=== PATIENT | female | born 1950 | race Caucasian/White ===

== ENCOUNTER 2018-10-19 21:05 | Outpatient (REF) | payer MEDICARE, SELFPAY ==
[2018-10-19 22:38] LABS: Anion Gap 11.9 mmol/L (3-11); BUN 18 mg/dL (7-18); CO2 26.1 mmol/L (21.0-32.0); CREATININE 0.94 mg/dL (0.55-1.02); Calcium 8.8 mg/dL (8.5-10.1); Chloride 105 mmol/L (98-107); Estimated GFR 59.04 (mL/min/1.73m2); Glucose 106 mg/dL (70-100); Potassium 3.4 mmol/L (3.5-5.1); Sodium 143 mmol/L (136-145)
== END 2018-10-19 21:25 ==
LOC: NCHCN 21:05
PROVIDERS: PCP Physician Assistant Medical; Visit Provider Physician Assistant Medical
DX: R06.00 Dyspnea, unspecified (principal); E07.9 Disorder of thyroid, unspecified
CPT/HCPCS: 80048

== ENCOUNTER 2019-01-17 14:34 | Outpatient (REF) | payer MEDICARE, SELFPAY ==
[2019-01-17 21:22] LABS: ALT 21 U/L (12-78); AST 13 U/L (15-37); Albumin 3.6 g/dL (3.4-5.0); Alkaline Phosphatase 87 U/L (46-116); Anion Gap 12.7 mmol/L (3-11); BUN 13 mg/dL (7-18); Bilirubin, Total 1.1 mg/dL (0.2-1.0); CO2 20.3 mmol/L (21.0-32.0); CREATININE 0.87 mg/dL (0.55-1.02); Chloride 108 mmol/L (98-107); Glucose 166 mg/dL (70-100); Lipase 106 U/L (73-393); Potassium 3.3 mmol/L (3.5-5.1); Sodium 141 mmol/L (136-145); Total Protein 6.5 g/dL (6.4-8.2)
[2019-01-17 21:28] LABS: Abs Immature Grans 0.03 k/cumm (0.0-0.09); Absolute Basophil Count 0.02 k/cumm (0.0-0.2); Absolute Eosinophil Count 0.18 k/cumm (0.0-0.7); Absolute Lymphocyte Count 1.81 k/cumm (1.2-3.4); Absolute Monocyte Count 0.56 k/cumm (0.11-0.7); Absolute Neutrophil Count 5.33 k/cumm (1.2-6.7); Basophils % 0.3; Eosinophils % 2.3; HCT 40.8 % (36.0-46.0); Immature Grans % 0.4; Lymphocytes % 22.8; Mean Corp. HGB Concentration 34.3 g/dL (32.0-36.0); Mean Corpuscular Hemoglobin 31.3 pg (27.0-33.0); Mean Corpuscular Volume 91.1 fL (80-95); Mean Platelet Volume 13.3 fL (8.0-11.0); Monocytes % 7.1; Neutrophils % 67.1; Platelet Count 162 x1000/uL (130-400); RBC 4.48 m/cumm (4.00-5.20); RBC Distribution Width 13.9 % (11.7-14.6); White Blood Cell Count 7.93 k/cumm (4.4-10.8)
[2019-01-17 21:35] LABS: Calcium 8.5 mg/dL (8.5-10.1)
== END 2019-01-17 14:54 ==
LOC: NCHCN 14:34
PROVIDERS: PCP Physician Assistant Medical; Visit Provider Nurse Practitioner Family
DX: R10.11 Right upper quadrant pain (principal)
CPT/HCPCS: 80053; 83690; 85025; 87086

== ENCOUNTER 2019-01-26 00:15 | Outpatient (CLI) | payer MEDICARE, SELFPAY ==
--- NOTE | 2019-01-26 08:56 | DI.US_ITS ---
SYMPTOMS/DIAGNOSIS: RT UPPER QUAD PAIN R10.11, ? CHOLELITHIASIS/CHOLECYSTITIS ABDOMINAL ULTRASOUND: The liver may be mildly echogenic raising the possibility of hepatic steatosis. There is cholelithiasis with multiple small gallstones noted. No pericholecystic fluid collection or gallbladder wall thickening seen. No biliary dilatation seen. The kidneys are unremarkable in appearance. The pancreas is not ideally visualized and appears echogenic. The abdominal aorta and IVC are of normal diameter. The spleen appears intact. CONCLUSION: Cholelithiasis, possible hepatic steatosis.
== END 2019-01-26 00:35 ==
PROVIDERS: PCP Physician Assistant Medical; Visit Provider Nurse Practitioner Family
DX: R10.11 Right upper quadrant pain (principal); K80.20 Calculus of gallbladder without cholecystitis without obstruction; K76.0 Fatty (change of) liver, not elsewhere classified
CPT/HCPCS: 76700

== ENCOUNTER → 2019-02-11 09:21 | Outpatient (BNVA) | payer MEDICARE, SELFPAY | PROVIDERS: PCP Physician Assistant Medical; Referring Provider Physician Assistant Medical; Visit Provider Surgery | DX: K80.20 Calculus of gallbladder without cholecystitis without obstruction (principal); I42.1 Obstructive hypertrophic cardiomyopathy | CPT/HCPCS: 99202; 99214 ==

== ENCOUNTER 2019-05-17 11:24 | Outpatient (CLI) | payer MEDICARE, SELFPAY ==
[2019-05-17 12:30] LABS: Abs Immature Grans 0.01 k/cumm (0.0-0.09); Absolute Basophil Count 0.01 k/cumm (0.0-0.2); Absolute Eosinophil Count 0.12 k/cumm (0.0-0.7); Absolute Lymphocyte Count 1.22 k/cumm (1.2-3.4); Absolute Monocyte Count 0.53 k/cumm (0.11-0.7); Absolute Neutrophil Count 4.61 k/cumm (1.2-6.7); Basophils % 0.2; Eosinophils % 1.8; HCT 37.4 % (36.0-46.0); HGB 12.9 g/dL (12.0-15.5); Immature Grans % 0.2; Lymphocytes % 18.8; Mean Corp. HGB Concentration 34.5 g/dL (32.0-36.0); Mean Corpuscular Hemoglobin 32.3 pg (27.0-33.0); Mean Corpuscular Volume 93.5 fL (80-95); Mean Platelet Volume 12.3 fL (8.0-11.0); Monocytes % 8.2; Neutrophils % 70.8; Platelet Count 171 x1000/uL (130-400)
[2019-05-17 12:46] LABS: ALT 20 U/L (14-59); AST 17 U/L (15-37); Albumin 3.5 g/dL (3.4-5.0); Anion Gap 9.9 mmol/L (3-11); BUN 13 mg/dL (7-18); Bilirubin, Total 1.4 mg/dL (0.2-1.0); CO2 24.1 mmol/L (21.0-32.0); CREATININE 0.92 mg/dL (0.55-1.02); Chloride 106 mmol/L (98-107); Glucose 127 mg/dL (70-100); Potassium 3.5 mmol/L (3.5-5.1); Sodium 140 mmol/L (136-145)
[2019-05-17 13:01] LABS: INR 1.1 (0.9-1.1); PTT Activated 31.6 sec (21.0-31.4); Prothrombin Time 11.1 sec (9.3-11.0)
[2019-05-17 14:50] LABS: Amylase 49 U/L (25-115)
== END 2019-05-17 11:44 ==
PROVIDERS: PCP Physician Assistant Medical; Visit Provider Internal Medicine Cardiovascular Disease
DX: I42.2 Other hypertrophic cardiomyopathy (principal); Z01.818 Encounter for other preprocedural examination; R73.09 Other abnormal glucose
CPT/HCPCS: 36415; 80051; 82947; 84520; 82040; 82150; 82247; 82565; 84450; 84460; 85025; 85610; 85730

== ENCOUNTER 2019-08-02 11:51 | Outpatient (REF) | payer MEDICARE, SELFPAY ==
[2019-08-02 20:12] LABS: Abs Immature Grans 0.01 k/cumm (0.0-0.09); Absolute Basophil Count 0.02 k/cumm (0.0-0.2); Absolute Eosinophil Count 0.13 k/cumm (0.0-0.7); Absolute Lymphocyte Count 1.44 k/cumm (1.2-3.4); Absolute Monocyte Count 0.67 k/cumm (0.11-0.7); Absolute Neutrophil Count 4.62 k/cumm (1.2-6.7); Basophils % 0.3; Eosinophils % 1.9; HCT 37.5 % (36.0-46.0); HGB 12.9 g/dL (12.0-15.5); Immature Grans % 0.1; Lymphocytes % 20.9; Mean Corp. HGB Concentration 34.4 g/dL (32.0-36.0); Mean Corpuscular Hemoglobin 30.8 pg (27.0-33.0); Mean Corpuscular Volume 89.5 fL (80-95); Mean Platelet Volume 12.4 fL (8.0-11.0); Monocytes % 9.7; Neutrophils % 67.1; Platelet Count 170 x1000/uL (130-400); RBC 4.19 m/cumm (4.00-5.20); RBC Distribution Width 13.6 % (11.7-14.6); White Blood Cell Count 6.89 k/cumm (4.4-10.8)
[2019-08-02 20:34] LABS: ALT 24 U/L (14-59); AST 19 U/L (15-37); Albumin 3.6 g/dL (3.4-5.0); Alkaline Phosphatase 78 U/L (46-116); Anion Gap 11.4 mmol/L (3-11); BUN 11 mg/dL (7-18); Bilirubin, Total 0.8 mg/dL (0.2-1.0); CO2 23.6 mmol/L (21.0-32.0); CREATININE 0.78 mg/dL (0.55-1.02); Calcium 8.8 mg/dL (8.5-10.1); Chloride 109 mmol/L (98-107); Glucose 92 mg/dL (74-106); Potassium 3.4 mmol/L (3.5-5.1); Sodium 144 mmol/L (136-145); TSH (W/Ref FT4) 2.11 uIU/mL (0.36-3.74); Total Protein 6.3 g/dL (6.4-8.2)
== END 2019-08-02 12:11 ==
LOC: NCHCN 11:51
PROVIDERS: PCP Physician Assistant Medical; Visit Provider Nurse Practitioner Family
DX: R07.9 Chest pain, unspecified (principal); E07.9 Disorder of thyroid, unspecified; I42.1 Obstructive hypertrophic cardiomyopathy
CPT/HCPCS: 80053; 84443; 85025

== ENCOUNTER 2019-10-03 18:04 | Observation (INO) | payer MEDICARE, SELFPAY ==
[2019-10-03] VITALS (98 sets, daily range): BP systolic 91–159; BP diastolic 48–130; PULSE 63–83; RESP 13–34; TEMP 36.8–36.9; O2SAT 94–99
--- NOTE | 2019-10-03 17:58 | ED.GENADUL_ITS ---
Discharge Plan Disposition Patient Disposition: [facility] INPATIENT Condition: Stable Discharge Details Chief Complaint: Chest Pain Clinical Impression: Chest pain, Elevated troponin, S/P coronary artery stent placement, Hypertrophic obstructive cardiomyopathy Admit Date/Time: 10/03/19 23:28 Admit Provider: Arvin Dacosta Attending Provider: Arvin Dacosta Primary Care Provider: Moy Pérez ED Provider: Natividad Arroyo Discharge Data Discharge Date/Time-TO BE ENTERED AT DEPARTURE: 10/04/19 00:45 Medical Decision Making 1800 -- 69-year-old female with a history of hypertrophic obstructive cardiomyopathy, coronary artery disease, CO, 2 cardiac stents, former smoker presents with chest pain at rest today followed by an episode of lightheadedness and diaphoresis upon standing after taking 1 nitro. Patient was admitted to [facility] cardiology last week for chest pain and was diagnosed with NSTEMI and found to have 90% in-stent restenosis lesion to her bare-metal stent that was placed in May 2019; a drug-eluting stent was successfully placed to the mid 2 segments of the LAD on 09/23/19. She is taking an aspirin, statin, beta-dacia, Brilinta as well as Lasix. She was given a full aspirin in route. EKG on arrival notes a rate of 81, sinus, right bundle branch block with deep T wave inversion noted in V1 through V5 as well as smaller T wave inversion noted in V6. T wave inversions in V4 more pronounced and T wave inversions in V5 V6 are new compared to EKG from [facility] 1 week ago. Vitals within normal limits. She is pain-free at this time but does admit to occasional shortness of breath. She states she has chronic shortness of breath at baseline, and states this is how she was initially diagnosed with her hypertensive obstructive cardiomyopathy in March 2019. She states she was scheduled for cardiac surgery at [facility] for her hypertrophic obstructive cardiomyopathy but this is now on hold due to her recent NSTEMI. We will check screening labs and chest x-ray. Will call [facility] for recommendations and possible transfer. 1844 --labs and imaging reviewed. Troponin 0.1. BNP 7277. Potassium 3.1, repleted. Chest x-ray notes pulmonary vascular congestion and cardiomegaly. No obvious focal consolidation. 1909 --discussed with [facility] cardiology -recommend repeat troponin to see where patient is going, as she may be downtrending status post stent. 2009 --repeat EKG notes a rate of 75, sinus, T wave inversions noted in the anterior and lateral leads. Questionable new T wave inversion in aVL and aVF. Discussed with [facility] cardiology and they recommend admission here overnight if possible for serial troponins and echocardiogram tomorrow. This was discussed with hospitalist here and he initially did not feel comfortable with admission here and recommended transfer to [facility]. [facility] stated that no beds were available but can reconvene in the a.m. if patient is still needing transfer. Case rediscussed with hospitalist here who evaluated patient and does not feel comfortable accepting for admission. Will call [facility]. Will obtain a 3rd troponin and ekg. Third EKG notes a rate of 64, sinus with T wave inversion in anterior lateral leads but this appears improved compared to her first 2 EKGs. There is T wave inversion in 1 and aVL which appears new compared to previous EKGs. 2254 --[facility] only excepting emergent transfers, and would only be able to accept patient in the next 24 hours. 2314 --discussed with hospitalist -accepts patient for admission. 3rd troponin unchanged - 0.10. Pt has remained chest pain free while here in the ED. Medical Records Medical records reviewed: Yes I reviewed the patient's medical records. Lab Data Lab results reviewed: Yes I reviewed the patient's lab results. Labs: Laboratory Tests Range/Units 10/03/19 10/03/19 10/03/19 18:08 18:08 20:02 WBC (4.4-10.8) k/cumm 9.04 RBC (4.00-5.20) m/cumm 3.87 L Hgb (12.0-15.5) g/dL 11.9 L Hct (36.0-46.0) % 35.5 L MCV (80-95) fL 91.7 MCH (27.0-33.0) pg 30.7 MCHC (32.0-36.0) g/dL 33.5 RDW (11.7-14.6) % 14.7 H Plt Count (130-400) x1000/uL 255 MPV (8.0-11.0) fL 11.2 H Immature Gran % % 0.4 Neutrophils % 69.6 Lymphocytes % 20.1 Monocytes % 7.6 Eosinophils % 2.1 Basophils % 0.2 Absolute Neutrophils (1.2-6.7) k/cumm 6.28 Absolute Lymphocytes (1.2-3.4) k/cumm 1.82 Absolute Monocytes (0.11-0.7) k/cumm 0.69 Absolute Eosinophils (0.0-0.7) k/cumm 0.19 Absolute Basophils (0.0-0.2) k/cumm 0.02 Sodium (136-145) mmol/L 145 Potassium (3.5-5.1) mmol/L 3.1 L Chloride (98-107) mmol/L 110 H Carbon Dioxide (21.0-32.0) mmol/L 22.4 Anion Gap (3-11) mmol/L 12.6 H BUN (7-18) mg/dL 16 Creatinine (0.55-1.02) mg/dL 0.87 Estimated GFR/1.73 m2 (mL/min/1.73m2) >= 60.00 Glucose (74-106) mg/dL 110 H Calcium (8.5-10.1) mg/dL 8.3 L Magnesium (1.8-2.4) mg/dL 1.8 Total Bilirubin (0.2-1.0) mg/dL 0.6 AST (15-37) U/L 16 ALT (14-59) U/L 22 Alkaline Phosphatase (46-116) U/L 94 Troponin I (<0.06) ng/Ml 0.10 H* 0.10 H* NT-Pro-B Natriuret Pep (<300) pg/mL 7277 H Total Protein (6.4-8.2) g/dL 6.2 L Albumin (3.4-5.0) g/dL 3.1 L ECG Data Attestation: I personally reviewed and interpreted this ECG (s) as follows: Interpretation: #1 -- Rate of 81, sinus, deep T wave inversions in V1 through V5 as well as smaller T wave inversion in V6. T wave inversion more extensive throughout anterior leads and new in lateral leads compared to old EKG from [facility] dated 09/26/2019. No acute ST elevation. IA 184. QTc 527. QRS 136. #2 -- Rate of 75, sinus, deep T wave inversion in V1 through V5 and smaller T wave inversion in V6, minimally improved compared to first EKG. No acute ST elevation. Questionable new T wave inversion in aVL and aVF. IA 212. QTc 514. QRS 126. #3 -- Rate of 64, sinus, improved T wave inversion in V1 through V6, T wave inversion in 1 and aVL. No acute ST elevation. IA 226. QTc 458. QRS 94. HPI General Mode of arrival: EMS . Date/Time Provider Initiated Documentation: 10/03/19 18:13 . Limitations to Documentation: no limitations . Information obtained by: patient . History of Present Illness 69 year old F presents to the emergency department with the chief complaint of substernal chest pain, described as moderate, Quality is described as sharp and constant, and is localized to the chest. Patient reports no radiation. Patient started experiencing this hour(s) (4) and it has been now resolved. Medication improves symptom(s), (nitro x 1 ) No exacerbating factors reported . Patient notes cough, loss of appetite and shortness of breath; denies chest pain, diaphoresis, fever/chills, headaches, malaise, nausea/vomiting, rash, seizure, syncope and weakness. Patient did receive the following treatments prior to arrival, Aspirin and other (nitro x 1 ) Related Data Home Medications Medication Instructions Recorded Confirmed Effexor 37.5 mg PO DAILY 01/04/13 10/09/19 ibuprofen 600 mg PO Q6H PRN PRN #30 tab 11/17/15 10/10/19 metoprolol succinate 100 mg 200 mg PO DAILY 02/01/19 10/09/19 tablet,extended release 24 hr pantoprazole 40 mg tablet,delayed 40 mg PO DAILY 02/01/19 10/09/19 release melatonin 5 mg capsule 5 mg PO HS PRN cap 02/11/19 10/10/19 Brilinta 90 mg PO BID 10/03/19 10/09/19 aspirin [Aspirin Low Dose] 81 mg PO DAILY 10/03/19 10/09/19 atorvastatin 80 mg PO HS 10/03/19 10/09/19 calcium carbonate [Tums] 1 PO TID PRN 10/03/19 furosemide [Lasix] 20 mg PO PRN PRN 10/03/19 10/09/19 nitroglycerin 0.4 mg SUBLINGUAL [id number] PRN 10/03/19 10/10/19 Previous Rx's Medication Instructions Recorded ibuprofen 600 mg PO Q6H PRN PRN #30 tab 11/17/15 Allergies Allergy/AdvReac Type Severity Reaction Status Date / Time cortisone [Cortisone] AdvReac Severe VOMITING, Unverified 10/03/19 18:11 DIARRHEA Review of Systems All systems reviewed & are unremarkable except as noted in HPI and below Constitutional Constitutional: Reports as per HPI, Denies chills and Denies fever(s) Eyes Eyes: Denies blurry vision ENT Ears, Nose, Mouth, and Throat: Reports dizziness, Denies sore throat and Denies throat swelling Cardiovascular Cardiovascular: Reports chest pain and Reports dyspnea Respiratory Respiratory: Reports cough and Reports dyspnea Gastrointestinal Gastrointestinal: Denies abdominal pain, Denies diarrhea and Denies vomiting Genitourinary Genitourinary: Denies hematuria and Denies dysuria Musculoskeletal Musculoskeletal: Denies back pain and Denies numbness Integumentary/Breasts Skin/Breast: Denies lesions and Denies rash Neurologic Neurologic: Reports dizziness, Denies focal weakness and Denies numbness Allergic/Immunologic Allergic/Immunologic: Denies throat swelling PFSH Medical History Blood glucose elevated (Chronic) breast cancer Cholelithiasis (Acute) Dyspnea (Acute) GERD (gastroesophageal reflux disease) (Chronic) Hypertrophic obstructive cardiomyopathy (Chronic) Mitral regurgitation (Chronic) Nonsustained paroxysmal supraventricular tachycardia (Acute) Pneumonia (Acute) Pulmonary nodule (Acute) Thyroid mass (Chronic) Vertigo (Chronic) Surgical History Breast, Mastectomy 2000 section X2 Social History Smoking/Tobacco Use Status: Never Alcohol Intake: current Alcohol Intake frequency: holidays/special occasions only Drug use: Never Substance use type: does not use Household members: spouse Do you feel safe at home: Yes Do you feel safe in your relationship?: Yes Exam Const General: cooperative, healthy appearing and no acute distress HENMT Head: normal to inspection Face and sinus: normal facial exam Eyes General: appearance normal, both eyes and all related structures EOM: EOM intact bilaterally Neck Neck: normal visual inspection and No submandibular swelling Lymphatic: no lymphadenopathy noted Chest Chest: normal inspection of the chest and no tenderness Resp Effort & Inspection: normal respiratory effort and able to speak in complete sentences Auscultation: clear to auscultation bilaterally Cardio Rate: regular rate Rhythm: regular rhythm Heart Sounds: murmur systolic IV/ GI Inspection: normal to inspection Palpation: soft, not firm, not rigid and nontender Auscultation: normal bowel sounds Skin General skin exam: no rashes or lesions noted Neuro General: alert, awake and oriented x3 Cognition: normal cognition Speech: speech normal Motor: muscle tone normal throughout Sensory Exam: no sensory deficits noted Extrem General: normal to inspection, full ROM, normal capillary refill, no calf tenderness bilaterally and no edema Psych Appearance: grossly normal Mental Status: mental status grossly normal Speech and Movement: speech and movement normal Affect: normal affect
[2019-10-03 18:18] LABS: Abs Immature Grans 0.04 k/cumm (0.0-0.09); Absolute Basophil Count 0.02 k/cumm (0.0-0.2); Absolute Eosinophil Count 0.19 k/cumm (0.0-0.7); Absolute Lymphocyte Count 1.82 k/cumm (1.2-3.4); Absolute Monocyte Count 0.69 k/cumm (0.11-0.7); Absolute Neutrophil Count 6.28 k/cumm (1.2-6.7); Basophils % 0.2; Eosinophils % 2.1; HCT 35.5 % (36.0-46.0); HGB 11.9 g/dL (12.0-15.5); Immature Grans % 0.4 %; Lymphocytes % 20.1; Mean Corp. HGB Concentration 33.5 g/dL (32.0-36.0); Mean Corpuscular Hemoglobin 30.7 pg (27.0-33.0); Mean Corpuscular Volume 91.7 fL (80-95); Mean Platelet Volume 11.2 fL (8.0-11.0); Monocytes % 7.6; Neutrophils % 69.6; Platelet Count 255 x1000/uL (130-400); RBC 3.87 m/cumm (4.00-5.20); RBC Distribution Width 14.7 % (11.7-14.6); White Blood Cell Count 9.04 k/cumm (4.4-10.8)
[2019-10-03] MEDS: Normal Saline 250 ML IV (18:28)
--- NOTE | 2019-10-03 18:39 | DI.RAD_ITS ---
EXAM: XR PORTABLE CHEST AP CLINICAL HISTORY: chest pain, sob, r/o acute disease TECHNIQUE: COMPARISON: CHEST 2 VIEWS PA,LAT from 09/15/2017 FINDINGS: The heart is mildly enlarged. There are diffuse bilateral intrapulmonary interstitial radiodensities . Some septal prominence is noted. Findings as described are nonspecific but most frequently seen i n pulmonary edema of cardiac origin. Other etiologies including infectious process not excluded. Ap propriate follow-up studies requested. IMPRESSION:
[2019-10-03 18:47] LABS: ALT 22 U/L (14-59); AST 16 U/L (15-37); Albumin 3.1 g/dL (3.4-5.0); Alkaline Phosphatase 94 U/L (46-116); Anion Gap 12.6 mmol/L (3-11); BUN 16 mg/dL (7-18); Bilirubin, Total 0.6 mg/dL (0.2-1.0); CO2 22.4 mmol/L (21.0-32.0); CREATININE 0.87 mg/dL (0.55-1.02); Calcium 8.3 mg/dL (8.5-10.1); Chloride 110 mmol/L (98-107); Glucose 110 mg/dL (74-106); Magnesium 1.8 mg/dL (1.8-2.4); NT-proBNP 7277 pg/mL (<300); Potassium 3.1 mmol/L (3.5-5.1); Sodium 145 mmol/L (136-145); Total Protein 6.2 g/dL (6.4-8.2)
--- NOTE | 2019-10-03 19:07 | DI.VRAD_ITS ---
PROCEDURE INFORMATION: Exam: XR Chest, 1 View Exam date and time: 10/03/2019 6:43 PM Age: 69 years old Clinical indication: Shortness of breath TECHNIQUE: Imaging protocol: XR of the chest Views: 1 view. COMPARISON: CR CHEST 2 VIEWS PA,LAT 09/15/2017 3:29 PM FINDINGS: Lungs: Diffuse, prominent indistinct interstitial markings. No focal consolidation. Pleural space: Unremarkable. No pleural effusion. No pneumothorax. Heart/Mediastinum: Stable enlarged cardiomediastinal silhouette. Bones/joints: Unremarkable. IMPRESSION: Prominent indistinct interstitial markings consistent with pulmonary edema or atypical infection. No focal consolidation. Dictated and Authenticated by: Vikram Odonnell MD. Ordering:SOFIA Henson MD
[2019-10-03] MEDS: Potassium Chloride 20 MEQ TABCR 40 MEQ PO ×2 (19:15)
--- NOTE | 2019-10-03 22:17 | NUR.NOTE ---
pt took her own evning meds , brillinta and cholesterol med . Dr Arroyo told her that she could.Nursing Note:
--- NOTE | 2019-10-03 23:11 | HPE_ITS ---
Date of service: 10/03/19 Time of Service: 23:11 Assessment and Plan Assessment and plan (1) Chest pain: Status: Acute Assessment and plan: CP. Unclear if this is in fact cardiogenic, and if so whether it may represent stent failure. Patient remains asymptomatic and is hemodynamically stable. Will complete r/o protocol and get ECHO in AM to look for any new WMAs. Will continue usual meds as is in meantime. History of Present Illness History of Present Illness Chief Complaint: CP Narrative: 69 female with hypertrpohic cadiomyopathy, CAD -- NSTEMI 09/23/18 in setting of resteenosis of stent placed 06/02, s/p EVARISTO. This afternoon had one hour of sharp CP which she describes as similar, though less intense, than the pain she experienced during recent NSTEMI. Took NTG x 1 with relief, though later lightheaded and nauseous. In ER EKG shows some flattening of T Waves laterally compareed to most recent at [facility]. Troponin 1 and 2 indeterminate at 0.1. Case [facility] at [facility] who did not feel patient required emergent study and advised to trend out troponins and re-check ECHO. On initial review of case I had some concerns for possible evolving or incipient ACS and suggested transfer. However no bed availability at both [facility] and [facility]. Given that patient remained asymptomatic, and given lack of bed availability, it was agreed to keep patient here overnight. Review of Systems All systems reviewed & are unremarkable except as noted in HPI and below PFSH Medical History Blood glucose elevated (Chronic) breast cancer Cholelithiasis (Acute) Dyspnea (Acute) GERD (gastroesophageal reflux disease) (Chronic) Hypertrophic obstructive cardiomyopathy (Chronic) Mitral regurgitation (Chronic) Nonsustained paroxysmal supraventricular tachycardia (Acute) Pneumonia (Acute) Pulmonary nodule (Acute) Thyroid mass (Chronic) Vertigo (Chronic) Surgical History Breast, Mastectomy 2000 section X2 Social History Smoking/Tobacco Use Status: Never Alcohol Intake: current Alcohol Intake frequency: holidays/special occasions only Drug use: Never Substance use type: does not use Household members: spouse Meds Home Medications and Allergies Home Medications Medication Instructions Recorded Confirmed Type Effexor 37.5 mg PO DAILY 01/04/13 10/03/19 History ibuprofen 1 tab PO PRN PRN 11/17/15 10/03/19 History ibuprofen 600 mg PO Q6H PRN PRN #30 tab 11/17/15 10/03/19 Rx metoprolol succinate 100 mg 200 mg PO DAILY 02/01/19 10/03/19 History tablet,extended release 24 hr pantoprazole 40 mg tablet,delayed 40 mg PO DAILY 02/01/19 10/03/19 History release melatonin 5 mg capsule mg PO HS PRN cap 02/11/19 02/11/19 History aspirin [Aspirin Low Dose] 81 mg PO DAILY 10/03/19 10/03/19 History atorvastatin 80 mg PO .QHS 10/03/19 10/03/19 History calcium carbonate [Tums] 1 PO TID 10/03/19 History furosemide [Lasix] 20 mg PO PRN 10/03/19 History nitroglycerin 0.4 mg SUBLINGUAL PRN 10/03/19 History ticagrelor [Brilinta] 90 mg PO BID 10/03/19 10/03/19 History Allergies Allergy/AdvReac Type Severity Reaction Status Date / Time cortisone [Cortisone] AdvReac Severe VOMITING, Unverified 10/03/19 18:11 DIARRHEA Exam Narrative Exam Narrative: 112/88, 67, 16, 36.9. HEENT AT/NC; neck supple; lungs clear; heart RRR 2/6 sys murmur best at apex, no LV heave or lift noted; abdomen soft and NT; extremities w/o edema, pulse 2+/=; neuro Ox3, non-focal Results Labs Result diagrams: 10/03/19 18:08 10/03/19 18:08 Labs: Laboratory Results - last 24 hr 10/03/19 10/03/19 10/03/19 18:08 18:08 20:02 WBC 9.04 RBC 3.87 L Hgb 11.9 L Hct 35.5 L MCV 91.7 MCH 30.7 MCHC 33.5 RDW 14.7 H Plt Count 255 MPV 11.2 H Immature Gran % 0.4 Neutrophils % 69.6 Lymphocytes % 20.1 Monocytes % 7.6 Eosinophils % 2.1 Basophils % 0.2 Absolute Neutrophils 6.28 Absolute Lymphocytes 1.82 Absolute Monocytes 0.69 Absolute Eosinophils 0.19 Absolute Basophils 0.02 Sodium 145 Potassium 3.1 L Chloride 110 H Carbon Dioxide 22.4 Anion Gap 12.6 H BUN 16 Creatinine 0.87 Estimated GFR/1.73 m2 >= 60.00 Glucose 110 H Calcium 8.3 L Magnesium 1.8 Total Bilirubin 0.6 AST 16 ALT 22 Alkaline Phosphatase 94 Troponin I 0.10 H* 0.10 H* NT-Pro-B Natriuret Pep 7277 H Total Protein 6.2 L Albumin 3.1 L Last Vital Signs Temp 36.8 C 10/03/19 17:57 Pulse 67 10/03/19 21:01 Resp 20 10/03/19 21:03 BP 104/49 L 10/03/19 21:01 Pulse Ox 96 10/03/19 21:03
[2019-10-04] VITALS (52 sets, daily range): BP systolic 53–128; BP diastolic 38–69; PULSE 59–71; RESP 14–26; TEMP 36.1–36.7; O2SAT 91–100
[2019-10-04] MEDS: Acetaminophen 325 MG TAB 650 MG PO (03:38)
[2019-10-04] MEDS: Normal Saline Flush 10 ML SYR ×2 (06:27→11:14)
[2019-10-04 07:17] LABS: Troponin I 0.07 ng/Ml (<0.06)
--- NOTE | 2019-10-04 07:52 | PDOC.CMIN ---
- If Service Date Differs Date of service: 10/04/19 Time of Service: 07:52 Care Management Initial Assess REASON FOR HOSPITALIZATION:: Chest Pain PAST MEDICAL HISTORY/PAST SURGICAL HISTORY:: Elevated glucose, breast ca, choleithiasis, dyspnea, GERD, hypertrophic cardiomyopathy, radha regurgitation, SVT, pulmonary nodule, thyroid mass, vertigo, surgical hx: breast mastectomy, . PREVIOUS FUNCTIONAL STATUS/SOCIAL/FAMILY SUPPORTS:: Eloisa lives at home in [place] with her spouse Deshawn. Eloisa has two children her daughter lives in [place] and her son in [facility]. 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 She drives and is indepedent with all care. CURRENT FUNCTIONAL STATUS:: Eloisa is alert and engaged during assessment. Eloisa is hopeful she will be able to return home today. She has follow [facility] the of this month. Eloisa reviews events prior to admission she states she was told that she should seek care for any chest pain. She reports she is now pain free and wants to return home. She is waiting for echo results. ADVANCE DIRECTIVES:: Elosia has advance directive she states she completed it while at [facility] Has patient been provided with information about the portal?: Yes Did the patient sign up for the portal?: No CODE STATUS:: Full Code INSURANCE COVERAGE / FINANCIAL ISSUES:: Medicare and AARP CURRENT HOME/COMMUNITY SERVICES/EQUIPMENT:: Home Health Nursing PRIMARY CARE PHYSICIAN:: [facility] POTENTIAL DISCHARGE NEEDS:: Resumption of home health services nursing. PATIENT/FAMILY EDUCATION NEEDS:: Discharge education, limitations and follow up plan of care including ask me three and self management. ANTICIPATED BARRIERS TO DISCHARGE:: None identified TRANSPORTATION:: Eloisa will transport home via private car with family at time of discharge. PLAN:: Eloisa will be discharged home resumption of home health nursing and follow up as directed with provider and [facility] Medical providers. No additional services needed at this time.
[2019-10-04] MEDS: Aspirin E.C. 81 MG TABEC PO (08:03)
[2019-10-04] MEDS: Metoprolol CR 100 MG TABCR 200 MG PO (08:03)
[2019-10-04] MEDS: Pantoprazole 40 MG TABCR PO (08:04)
[2019-10-04] MEDS: Venlafaxine 37.5 MG CAPCR PO (08:05)
[2019-10-04] MEDS: Ticagrelor 90 MG TAB PO (08:05)
--- NOTE | 2019-10-04 08:29 | W.PM.PROGNOT ---
Subjective Subjective Interval history since last seen: No chest pain overnight. Afebrile. No arrhythmias; 1st degree AV block. HR in high 60's. Echo 9 am. Objective Objective Clinical Data: Abnormal lab results 10/03/19 10/03/19 10/03/19 Range/Units 18:08 18:08 20:02 RBC 3.87 L (4.00-5.20) m/cumm Hgb 11.9 L (12.0-15.5) g/dL Hct 35.5 L (36.0-46.0) % RDW 14.7 H (11.7-14.6) % MPV 11.2 H (8.0-11.0) fL Potassium 3.1 L (3.5-5.1) mmol/L Chloride 110 H (98-107) mmol/L Anion Gap 12.6 H (3-11) mmol/L Glucose 110 H (74-106) mg/dL Calcium 8.3 L (8.5-10.1) mg/dL Troponin I 0.10 H* 0.10 H* (<0.06) ng/Ml NT-Pro-B Natriuret Pep 7277 H (<300) pg/mL Total Protein 6.2 L (6.4-8.2) g/dL Albumin 3.1 L (3.4-5.0) g/dL 10/03/19 Range/Units 20:54 RBC (4.00-5.20) m/cumm Hgb (12.0-15.5) g/dL Hct (36.0-46.0) % RDW (11.7-14.6) % MPV (8.0-11.0) fL Potassium (3.5-5.1) mmol/L Chloride (98-107) mmol/L Anion Gap (3-11) mmol/L Glucose (74-106) mg/dL Calcium (8.5-10.1) mg/dL Troponin I 0.10 H* (<0.06) ng/Ml NT-Pro-B Natriuret Pep (<300) pg/mL Total Protein (6.4-8.2) g/dL Albumin (3.4-5.0) g/dL Vital Signs Temperature 36.5 C 10/04/19 08:10 Temperature Source Temporal Artery Scan 10/04/19 08:10 Pulse 62 10/04/19 08:10 Pulse 66 10/04/19 08:20 Respiratory Rate 17 10/04/19 08:20 Respiratory Effort 10/04/19 08:10 Respiratory Depth Normal 10/04/19 08:10 Respiratory Pattern Normal 10/04/19 08:10 Blood Pressure 108/67 10/04/19 08:10 Blood Pressure Mean 80 10/04/19 08:10 Blood Pressure Position Supine 10/04/19 08:10 Pulse Oximetry 96 10/04/19 08:20 Oxygen Delivery Method Room Air 10/04/19 08:10 Oxygen Flow Rate 0 10/04/19 08:10 Pain Level 0 10/04/19 08:04 Intake & Output 10/03/19 10/03/19 10/04/19 11:59 23:59 11:59 Intake Total 250 / 250 Output Total 350 / 350 Balance -100 / -100 Weight 68.5 kg 68.3 kg Intake: IV 250 / 250 Output: Urine 350 / 350 Other: Urine Color Dark Brenda Urine Appearance Cloudy Urine Odor Normal Comment Pt has not voided since arrival to the unit around 0045 Voiding Methods Bedside Commode Laboratory Results WBC 9.04 k/cumm (4.4-10.8) 10/03/19 18:08 RBC 3.87 m/cumm (4.00-5.20) L 10/03/19 18:08 Hgb 11.9 g/dL (12.0-15.5) L 10/03/19 18:08 Hct 35.5 % (36.0-46.0) L 10/03/19 18:08 MCV 91.7 fL (80-95) 10/03/19 18:08 MCH 30.7 pg (27.0-33.0) 10/03/19 18:08 MCHC 33.5 g/dL (32.0-36.0) 10/03/19 18:08 RDW 14.7 % (11.7-14.6) H 10/03/19 18:08 Plt Count 255 x1000/uL (130-400) 10/03/19 18:08 MPV 11.2 fL (8.0-11.0) H 10/03/19 18:08 Immature Gran % 0.4 % 10/03/19 18:08 Neutrophils % 69.6 10/03/19 18:08 Lymphocytes % 20.1 10/03/19 18:08 Monocytes % 7.6 10/03/19 18:08 Eosinophils % 2.1 10/03/19 18:08 Basophils % 0.2 10/03/19 18:08 Absolute Neutrophils 6.28 k/cumm (1.2-6.7) 10/03/19 18:08 Absolute Lymphocytes 1.82 k/cumm (1.2-3.4) 10/03/19 18:08 Absolute Monocytes 0.69 k/cumm (0.11-0.7) 10/03/19 18:08 Absolute Eosinophils 0.19 k/cumm (0.0-0.7) 10/03/19 18:08 Absolute Basophils 0.02 k/cumm (0.0-0.2) 10/03/19 18:08 Sodium 145 mmol/L (136-145) 10/03/19 18:08 Potassium 3.1 mmol/L (3.5-5.1) L 10/03/19 18:08 Chloride 110 mmol/L (98-107) H 10/03/19 18:08 Carbon Dioxide 22.4 mmol/L (21.0-32.0) 10/03/19 18:08 Anion Gap 12.6 mmol/L (3-11) H 10/03/19 18:08 BUN 16 mg/dL (7-18) 10/03/19 18:08 Creatinine 0.87 mg/dL (0.55-1.02) 10/03/19 18:08 Estimated GFR/1.73 m2 >= 60.00 (mL/min/1.73m2) 10/03/19 18:08 Glucose 110 mg/dL (74-106) H 10/03/19 18:08 Calcium 8.3 mg/dL (8.5-10.1) L 10/03/19 18:08 Magnesium 1.8 mg/dL (1.8-2.4) 10/03/19 18:08 Total Bilirubin 0.6 mg/dL (0.2-1.0) 10/03/19 18:08 AST 16 U/L (15-37) 10/03/19 18:08 ALT 22 U/L (14-59) 10/03/19 18:08 Alkaline Phosphatase 94 U/L (46-116) 10/03/19 18:08 Troponin I 0.07 ng/Ml (<0.06) 10/04/19 06:40 NT-Pro-B Natriuret Pep 7277 pg/mL (<300) H 10/03/19 18:08 Total Protein 6.2 g/dL (6.4-8.2) L 10/03/19 18:08 Albumin 3.1 g/dL (3.4-5.0) L 10/03/19 18:08
--- NOTE | 2019-10-04 08:36 | W.CARDCONSUL ---
Date of service: 10/04/19 Time of Service: 08:36 Assessment and Plan Assessment and plan (1) Chest pain: Status: Acute Assessment and plan: 1. Chest pain: Patient has known history of CAD and recent end STEMI which resulted in placement of a drug-eluting stent within a prior bare-metal stent in her mid-LAD. The patient presented with recurrence of chest pain but troponin levels at our facility were downtrending from 0.1-0.07. This likely represents a downtrending of her troponin from prior stent placement. Would recommend aggressive medical management but no further studies at this time. Echocardiogram showed slight improvement as compared to echocardiogram from [facility] after her non-STEMI. ?Continue aspirin to Kegler ?Continue atorvastatin ?Continue metoprolol succinate 200 mg daily. ?Would prefer use of morphine for pain while inpatient rather than nitroglycerin given her history of hypertrophic cardiomyopathy 2. Hypertrophic cardiomyopathy: Patient with known obstruction with vagal maneuver and elevated LVOT gradient at rest. ?Continue high-dose metoprolol succinate (200 mg twice daily) ?As above we will try to avoid using vasodilatory agents such as nitroglycerin in order to maintain adequate preload ?The patient is followed at [facility] and has an appointment next week to discuss septal surgery. History of Present Illness History of Present Illness Chief Complaint: chest pain Narrative: Ms. Chandra is a 69-year-old female with past medical history significant for hypertrophic cardiomyopathy recent non-STEMI due to in-stent restenosis of an LAD stent. She was successfully restented at [facility] on 110 and discharged on the 15th of this month. She then presented back to the hospital here with ongoing chest pain. She was evaluated and admitted for troponin trending. ECG was grossly unchanged from baseline with T wave inversions noted across the precordium. Troponin was flat at 0.1?2 and then 0.07 on repeat. Cardiology was consulted to assist with management and to answer the question or whether this could be another occurance of in-stent restenosis. Review of Systems All systems reviewed & are unremarkable except as noted in HPI and below PFSH Medical History (Updated 10/04/19 @ 12:25 by Jeanne Maldonado MD) Blood glucose elevated (Chronic) breast cancer CAD (coronary artery disease) (Chronic) Cholelithiasis (Acute) Dyspnea (Acute) GERD (gastroesophageal reflux disease) (Chronic) Hypertrophic obstructive cardiomyopathy (Chronic) Mitral regurgitation (Chronic) Nonsustained paroxysmal supraventricular tachycardia (Acute) Pneumonia (Acute) Pulmonary nodule (Acute) Thyroid mass (Chronic) Vertigo (Chronic) Surgical History Breast, Mastectomy 2000 section X2 Social History Smoking/Tobacco Use Status: Never Alcohol Intake: current Alcohol Intake frequency: holidays/special occasions only Drug use: Never Substance use type: does not use Household members: spouse Exam Const General: comfortable and no acute distress HENMT Head: normocephalic and atraumatic Eyes General: appearance normal, both eyes and all related structures Resp Effort & Inspection: normal respiratory effort Auscultation: clear to auscultation bilaterally Cardio Jugular venous pressure: no JVD Palpation: normal PMI Rate: regular rate Rhythm: regular rhythm Heart Sounds: S1 normal and murmur systolic mid and II/ GI Palpation: soft Auscultation: normoactive bowel sounds Skin General skin exam: no rashes or lesions noted Extrem General: normal to inspection and no clubbing, cyanosis or edema Psych Appearance: grossly normal Results Last Vital Signs Temp 36.5 C 10/04/19 08:10 Pulse 62 10/04/19 08:10 Resp 17 10/04/19 08:20 BP 108/67 10/04/19 08:10 Pulse Ox 96 10/04/19 08:20 Labs Result diagrams: 10/03/19 18:08 10/04/19 06:40 Labs: Laboratory Results - last 24 hr 10/03/19 10/03/19 10/03/19 18:08 18:08 20:02 WBC 9.04 RBC 3.87 L Hgb 11.9 L Hct 35.5 L MCV 91.7 MCH 30.7 MCHC 33.5 RDW 14.7 H Plt Count 255 MPV 11.2 H Immature Gran % 0.4 Neutrophils % 69.6 Lymphocytes % 20.1 Monocytes % 7.6 Eosinophils % 2.1 Basophils % 0.2 Absolute Neutrophils 6.28 Absolute Lymphocytes 1.82 Absolute Monocytes 0.69 Absolute Eosinophils 0.19 Absolute Basophils 0.02 Sodium 145 Potassium 3.1 L Chloride 110 H Carbon Dioxide 22.4 Anion Gap 12.6 H BUN 16 Creatinine 0.87 Estimated GFR/1.73 m2 >= 60.00 Glucose 110 H Calcium 8.3 L Magnesium 1.8 Total Bilirubin 0.6 AST 16 ALT 22 Alkaline Phosphatase 94 Troponin I 0.10 H* 0.10 H* NT-Pro-B Natriuret Pep 7277 H Total Protein 6.2 L Albumin 3.1 L 10/03/19 10/04/19 20:54 06:40 WBC RBC Hgb Hct MCV MCH MCHC RDW Plt Count MPV Immature Gran % Neutrophils % Lymphocytes % Monocytes % Eosinophils % Basophils % Absolute Neutrophils Absolute Lymphocytes Absolute Monocytes Absolute Eosinophils Absolute Basophils Sodium Potassium Chloride Carbon Dioxide Anion Gap BUN Creatinine Estimated GFR/1.73 m2 Glucose Calcium Magnesium Total Bilirubin AST ALT Alkaline Phosphatase Troponin I 0.10 H* 0.07 NT-Pro-B Natriuret Pep Total Protein Albumin
[2019-10-04 08:45] LABS: Anion Gap 11.3 mmol/L (3-11); BUN 13 mg/dL (7-18); CO2 20.7 mmol/L (21.0-32.0); CREATININE 0.83 mg/dL (0.55-1.02); Calcium 8.4 mg/dL (8.5-10.1); Calculated LDL 54 mg/dL; Chloride 110 mmol/L (98-107); Cholesterol 105 mg/dL (<200); Glucose 94 mg/dL (74-106); HDL Cholesterol 28 mg/dL (40-60); Magnesium 1.8 mg/dL (1.8-2.4); Potassium 3.6 mmol/L (3.5-5.1); Sodium 142 mmol/L (136-145); Triglyceride 117 mg/dL (<150)
--- NOTE | 2019-10-04 08:56 | DI.US_ITS ---
APPROVED REPORT EXAM: Comprehensive 2D, Doppler, and color-flow Echocardiogram Patient Location: In-Patient Community Services Coordinator: Margarita Borges RDCS (AE) Rhythm: NSR Indications: CP known hypertrophic cardiomyopathy. Conclusion Left Ventricle : The left ventricle is normal size. The left ventricular ejection fraction is within the normal range. Moderate left ventricular hypertrophy, with increased septal thickening consistent with hypertrophic cardiomyopathy. The apical anteroseptal wall is mildly hypokinetic. The apical anterior wall is mildly hypokinetic. The apical anterolateral wall is mildly hypokinetic. The apical inferior wall is mildly hypokinetic. The apical apex wall is mildly hypokinetic. No left ventricle thrombus noted on this study. There is grade 2 diastolic dysfunction. LVEF is karmen mated to be >70%. LVOT gradient peak and mean with valsalva estimated to be 77/34.5 mmhg respectively . Right Ventricle : The right ventricle is normal size. The right ventricular systolic function appear s low normal. Atria : Left atrium is moderately dilated. The right atrium size is normal. Aortic Valve : Aortic valve is probably trileaflet. Trace to mild aortic regurgitation. There is no a ortic valvular stenosis. Mitral Valve : Mitral valve leaflets are mildly thickened. No evidence of mitral valve stenosis. Mode rate mitral regurgitation. Tricuspid Valve : The tricuspid valve leaflets are thickened , but open well. Mild to moderate tricus pid regurgitation. Great Vessels : IVC is normal in size and collapses >50% with inspiration. Estimated RVSP is 40-45 m mHg. Compared to echocardiogram from [facility] dated 09/26/2019: The patient's wall motion abnorm alities are no longer as severe and ejection fraction has increased from 50% to 70%. LVOT gradient i s unchanged. Wall motion Left Ventricle The left ventricle is normal size. The left ventricular ejection fraction is within the normal range. Moderate left ventricular hypertrophy, with increased septal thickening consistent with hypertrophic cardiomyopathy. The apical anteroseptal wall is mildly hypokinetic. The apical anterior wall is mild ly hypokinetic. The apical anterolateral wall is mildly hypokinetic. The apical inferior wall is mild ly hypokinetic. The apical apex wall is mildly hypokinetic. There is grade 2 diastolic dysfunction No left ventricle thrombus noted on this study. LVEF is estimated to be >70%. LVOT gradient peak and me an with valsalva estimated to be 77/34.5 mmhg respectively. Right Ventricle The right ventricle is normal size. The right ventricular systolic function appears low normal. Atria Left atrium is moderately dilated. The right atrium size is normal. Aortic Valve Aortic valve is probably trileaflet. There is no aortic valvular stenosis. Trace to mild aortic regur gitation. Mitral Valve Mitral valve leaflets are mildly thickened. No evidence of mitral valve stenosis. Moderate mitral reg urgitation Tricuspid Valve The tricuspid valve leaflets are thickened , but open well. Mild to moderate tricuspid regurgitation. Great Vessels The aortic root is normal in size. The ascending aorta is normal in size. IVC is normal in size and c ollapses >50% with inspiration. Estimated RVSP is 40-45 mmHg. Pericardium There is no pericardial effusion. 2D Dimensions IVSd 1.35 cm F: 0.6-1.0 LV EDV A2C 45.4 mL PWd 1.15 cm F: 0.6 - 1.0 LV EDV A4C 49.1 mL LVDd 4.50 cm F: 3.8 - 5.2 LA Volume Index Biplane 48.6 mL/m2 LVDs 2.95 cm F: 2.2 - 3.5 LA Area A4C 26.11 cm2 Aortic Root 2.50 cm F: 2.7 - 3.3 LA Area A2C 22.35 cm2 RA Area A4C 12.10 cm2 EF AP4 82.7 % LVOT 2.00 cm (M/F) 1.5-2.5 EF AP2 76.4 % Ascending Aorta 2.89 cm F: 2.3 - 3.1 EF BP 79.0 % LVEF (Teich) 63.9 % IVC 1.70 cm LVEF (Kearns's) 78.95 % F: 54 - 74 TAPSE 1.55 cm (M/F) <1.7 LV Volume 35.70 mL F: 46 - 106 LV Volume Index 20.63 mL/m2 F: 29 - 61 FS 34.60 % LV Diastology E/A Ratio 1.1 MV E' medial 0.051 (>0.07 m/s) LV E/e MED 22.90 (<14) MV E' lateral 0.049 (>0.1 m/s) LV E/e LAT 23.65 (<14) Aortic Valve LVOT Area 3.18 cm2 LVOT Vmax 1.88 m/s LVOT Mean Nicholas. 1.48 m/s LVOT Peak Gr. 14.2 mmHg AoV Area Vmax 2.59 cm2 LVOT Mean Gr. 9.7 mmHg AoV Area/ BSA (Vmax) 1.50 cm2/m2 LVOT VTI 0.437 m AoV Vmax 2.31 (0.5-1.3 m/s) JYOTI Mean Nicholas. Index 1.56 cm2/m2 AoV Mean Nicholas. 1.74 m/s AoV Peak Grad 21.4 mmHg LVOT SV 139.03 mL AoV Mean Grad 13.7 (<5 mmHg) AoV VTI 0.524 (0.18-0.25 m) AoV Area VTI 2.65 (2.5-4.5 cm2) AoV Area/ BSA (VTI) 1.53 cm/m2 Mitral Valve MV E Max Nicholas. 1.16 (0.4-1.3 m/s) MV A Velocity 1.10 (0.4-1.3 m/s) E/A Ratio 1.02 MV Decel. Time 191 (160-240 msec) MV PHT 55 msec MVA PHT 3.95 cm2 Tricuspid Valve TV Vmax 3.24 (0.3-1.0 m/s) TV Regurg Vmax 3.24 m/s RAP Estimate 3.00 mmHg TR P. Gradient 41.9 mmHg RVSP 45.0 mmHg
--- NOTE | 2019-10-04 10:25 | NUR.NOTE ---
RN sends electronic message to Dr. Maldonado to have her call [facility] since said institution would like to speak with her. Telephone number is provided in message.Nursing Note:
[2019-10-04] MEDS: Potassium Chloride 20 MEQ TABCR 40 MEQ PO (10:53)
--- NOTE | 2019-10-04 11:07 | NUR.NOTE ---
Patient's next appointment at [facility] cardiology is scheduled for October 11, 2019.Nursing Note:
--- NOTE | 2019-10-04 12:22 | W.PM.DS.N ---
Date of service: 10/04/19 Time of Service: 12:22 DS: Diagnosis Discharge Diagnosis (1) Chest pain: Status: Acute (2) Hypertrophic obstructive cardiomyopathy: Status: Chronic (3) CAD (coronary artery disease): Status: Chronic Discharge Plan Disposition Patient Disposition: HOME Condition: Stable Discharge Details Chief Complaint: Chest Pain Clinical Impression: Chest pain, Elevated troponin, S/P coronary artery stent placement, Hypertrophic obstructive cardiomyopathy Reason For Visit: CP Admit Date/Time: 10/03/19 23:28 Admit Provider: Arvin Dacosta Attending Provider: Arvin Dacosta Primary Care Provider: Moy Pérez ED Provider: Natividad Arroyo Hospital Course Hospital Course: Ms Galindo is a 69 year old female with PMHx of hypertrophic obstructive cardiomyopathy, as well as CAD s/p NSTEMI 10 days ago due to in-stent stenosis of LAD, restented at [facility], who was observed on [facility] hospitalist service from 10/03/2019 until 10/04/2019 after presenting to [facility] ED with chest pain. Her troponin was 0.10 at the time of presentation, and her EKG was unchanged from prior. She was observed in the ICU on the night shift manager without evidence of any arrhythmias and no recurrences of chest pain. Her troponin had gone down to 0.07. She underwent an echocardiogram, which was reviewed and compared to prior by Dr Panchal - it was felt to be unchanged. It showed EF of >70%, there was mild apical anterolateral and inferior wall hypokinesis, as well as grade 2 diastolic dysfunction. LVOT gradient peak and mean pressures with valsalva were estimated to be 77 and 34.5 mmhg respectively. The patient was evaluated by Dr Panchal in consultation, who felt the patient was stable for discharge home today with follow up with cardiology at both [facility] and [facility], where she already has appointments. His recommendation for treatment of chest pain, should it recur, is to avoid nitroglycerin and, if inpatient, treat the pain with morphine. The patient is medically stable for discharge at this time. Home Meds and New Rx's Prescriptions: Continued melatonin 5 mg capsule PO HS PRNRF: 0 metoprolol succinate 100 mg tablet extended release 24 hr 200 mg PO DAILY RF: 0 pantoprazole 40 mg tablet,delayed release (DR/EC) 40 mg PO DAILY RF: 0 EFFEXOR 37.5 MG tablet 37.5 mg PO DAILY RF: 0 ibuprofen 800 MG tablet 1 tab PO PRN PRNRF: 0 ibuprofen 600 MG tablet 600 mg PO Q6H PRN PRNQty: 30 RF: 0 atorvastatin 80 mg Tablet 80 mg PO .QHS RF: 0 aspirin [Aspirin Low Dose] 81 mg Tablet,Delayed Release (Dr/Ec) 81 mg PO DAILY RF: 0 calcium carbonate [Tums] 200 mg calcium (500 mg) Tablet,Chewable 1 PO TID RF: 0 nitroglycerin 0.4 mg Tablet, Sublingual 0.4 mg sublingual PRNRF: 0 furosemide [Lasix] 20 mg Tablet 20 mg PO PRNRF: 0 Brilinta 90 mg Tablet 90 mg PO BID RF: 0 Discharge Instructions Instructions: Hypertrophic Cardiomyopathy (DC) Additional Instructions: Return to the hospital with any recurrences in chest pain, fever, bleeding, shortness of breath. Follow up with [facility] cardiology and [facility], as scheduled. Referrals: Arvin Panchal MD [MD CONSULTING PHYSICIAN] - Moy Pérez PA [Primary Care Provider] - Activity:: Activity as Tolerated Equipment/Supplies:: No Equipment Needed Diet:: Low Sodium Discharge Orders Discharge Orders: Discharge Order (Routine); Ordered 10/04/19 Ordered By: eJanne Maldonado DS: Summary Status at Discharge Functional status at discharge: independent ambulation Overall status at discharge: patient is back to baseline Mental Status: mental status grossly normal Speech and Movement: speech and movement normal Mood: congruent mood Affect: normal affect Exam Narrative Exam Narrative: General: very pleasant female, A&Ox3, laying comfortably in bed HEENT: EOMI, MMM Heart: RRR, ?FLAQUITO Lungs: CTAB GI: abdomen is soft, nontender, nondistended Extremities; NO e/c/c BLE's, 2+ pedal pulses B Psych Mental Status: mental status grossly normal Speech and Movement: speech and movement normal Mood: congruent mood Affect: normal affect DS: Data Vitals/I&O Vitals and I&O: Vital Signs Temperature 36.2 C L 10/04/19 11:14 Temperature Source Temporal Artery Scan 10/04/19 11:02 Pulse 62 10/04/19 11:02 Pulse 66 10/04/19 08:20 Respiratory Rate 23 10/04/19 11:02 Respiratory Effort 10/04/19 08:10 Respiratory Depth Normal 10/04/19 08:10 Respiratory Pattern Normal 10/04/19 08:10 Blood Pressure 122/54 L 10/04/19 11:02 Blood Pressure Mean 80 10/04/19 08:10 Blood Pressure Position Supine 10/04/19 08:10 Pulse Oximetry 94 L 10/04/19 11:02 Oxygen Delivery Method Room Air 10/04/19 11:02 Oxygen Flow Rate 0 10/04/19 11:02 Pain Level 0 10/04/19 11:14 Comment 10/04/19 10:08 Intake & Output 10/03/19 10/04/19 10/04/19 23:59 11:59 23:59 Intake Total 250 / 250 Output Total 350 / 350 Balance -100 / -100 Weight 68.5 kg 68.3 kg Intake: IV 250 / 250 Output: Urine 350 / 350 Other: Urine Color Dark Brenda Urine Appearance Cloudy Urine Odor Normal Comment Pt has not voided since arrival to the unit around 0045 Voiding Methods Bedside Commode Data Completed and Pending Completed studies during hospitalization [Text1]: TTE: Left Ventricle : The left ventricle is normal size. The left ventricular ejection fraction is within the normal range. Moderate left ventricular hypertrophy, with increased septal thickening consistent with hypertrophic cardiomyopathy. The apical anteroseptal wall is mildly hypokinetic. The apical anterior wall is mildly hypokinetic. The apical anterolateral wall is mildly hypokinetic. The apical inferior wall is mildly hypokinetic. The apical apex wall is mildly hypokinetic. No left ventricle thrombus noted on this study. There is grade 2 diastolic dysfunction. LVEF is estimated to be >70%. LVOT gradient peak and mean with valsalva estimated to be 77/34.5 mmhg respectively. Right Ventricle : The right ventricle is normal size. The right ventricular systolic function appears low normal. Atria : Left atrium is moderately dilated. The right atrium size is normal. Aortic Valve : Aortic valve is probably trileaflet. Trace to mild aortic regurgitation. There is no aortic valvular stenosis. Mitral Valve : Mitral valve leaflets are mildly thickened. No evidence of mitral valve stenosis. Moderate mitral regurgitation. Tricuspid Valve : The tricuspid valve leaflets are thickened , but open well. Mild to moderate tricuspid regurgitation. Great Vessels : IVC is normal in size and collapses >50% with inspiration. Estimated RVSP is 40-45 mmHg. Compared to echocardiogram from [facility] dated 09/26/2019: The patient's wall motion abnormalities are no longer as severe and ejection fraction has increased from 50% to 70%. LVOT gradient is unchanged. CXR: The heart is mildly enlarged. There are diffuse bilateral intrapulmonary interstitial radiodensities. Some septal prominence is noted. Findings as described are nonspecific but most frequently seen in pulmonary edema of cardiac origin. Other etiologies including infectious process not excluded. Appropriate follow-up studies requested. Labs on day of discharge: Labs from last 24 hours 10/04/19 10/03/19 10/03/19 06:40 20:54 20:02 WBC RBC Hgb Hct MCV MCH MCHC RDW Plt Count MPV Immature Gran % Neutrophils % Lymphocytes % Monocytes % Eosinophils % Basophils % Absolute Neutrophils Absolute Lymphocytes Absolute Monocytes Absolute Eosinophils Absolute Basophils Sodium 142 Potassium 3.6 Chloride 110 H Carbon Dioxide 20.7 L Anion Gap 11.3 H BUN 13 Creatinine 0.83 Estimated GFR/1.73 m2 >= 60.00 Glucose 94 Calcium 8.4 L Magnesium 1.8 Total Bilirubin AST ALT Alkaline Phosphatase Troponin I 0.07 0.10 H* 0.10 H* NT-Pro-B Natriuret Pep Total Protein Albumin Triglycerides 117 Total Cholesterol 105 LDL Cholesterol, Calc 54 HDL Cholesterol 28 L 10/03/19 10/03/19 18:08 18:08 WBC 9.04 RBC 3.87 L Hgb 11.9 L Hct 35.5 L MCV 91.7 MCH 30.7 MCHC 33.5 RDW 14.7 H Plt Count 255 MPV 11.2 H Immature Gran % 0.4 Neutrophils % 69.6 Lymphocytes % 20.1 Monocytes % 7.6 Eosinophils % 2.1 Basophils % 0.2 Absolute Neutrophils 6.28 Absolute Lymphocytes 1.82 Absolute Monocytes 0.69 Absolute Eosinophils 0.19 Absolute Basophils 0.02 Sodium 145 Potassium 3.1 L Chloride 110 H Carbon Dioxide 22.4 Anion Gap 12.6 H BUN 16 Creatinine 0.87 Estimated GFR/1.73 m2 >= 60.00 Glucose 110 H Calcium 8.3 L Magnesium 1.8 Total Bilirubin 0.6 AST 16 ALT 22 Alkaline Phosphatase 94 Troponin I 0.10 H* NT-Pro-B Natriuret Pep 7277 H Total Protein 6.2 L Albumin 3.1 L Triglycerides Total Cholesterol LDL Cholesterol, Calc HDL Cholesterol [facility] Medical History Blood glucose elevated (Chronic) breast cancer Cholelithiasis (Acute) Dyspnea (Acute) GERD (gastroesophageal reflux disease) (Chronic) Hypertrophic obstructive cardiomyopathy (Chronic) Mitral regurgitation (Chronic) Nonsustained paroxysmal supraventricular tachycardia (Acute) Pneumonia (Acute) Pulmonary nodule (Acute) Thyroid mass (Chronic) Vertigo (Chronic) Surgical History Breast, Mastectomy 2000 section X2 Social History Smoking/Tobacco Use Status: Never Alcohol Intake: current Alcohol Intake frequency: holidays/special occasions only Drug use: Never Substance use type: does not use Household members: spouse
--- NOTE | 2019-10-04 13:49 | NUR.NOTE ---
All dIscharge paperwork has been reviewed with patient, IV's have been DC'd and last vital signs taken. Patient feeling well, and is please with care rendered her at [facility]. RN places patient in wheelchair and escorts her off unit to awaiting car being driven by her . Patient is discharge dto home. Patient will be following up with a inside sales director at [facility] in [place], [place] on the September.Nursing Note:
== END 2019-10-04 14:09 | disposition home or self-care (01) ==
LOC: ER 10-04 00:03 → ICU 10-04 10:21
PROVIDERS: Admitting Provider General Practice; Emergency Provider Physician Assistant; PCP Physician Assistant Medical; Visit Provider Internal Medicine
DX: R07.9 Chest pain, unspecified (principal); R79.89 Other specified abnormal findings of blood chemistry; Z95.5 Presence of coronary angioplasty implant and graft; I42.1 Obstructive hypertrophic cardiomyopathy; I25.10 Atherosclerotic heart disease of native coronary artery without angina pectoris; I25.2 Old myocardial infarction; I08.1 Rheumatic disorders of both mitral and tricuspid valves; K21.9 Gastro-esophageal reflux disease without esophagitis
CPT/HCPCS: 36415; 80048; 80053; 80061; 93005; 93306; 96360; 96361; 99214; 99217; 99222; 99254; 99285; 71045; 83735; 83880; 84484; 85025; 93010; 99218; G0378; J3490

== ENCOUNTER → 2019-10-04 09:57 | Outpatient (BNVA) | payer MEDICARE, SELFPAY | PROVIDERS: PCP Physician Assistant Medical; Referring Provider Physician Assistant Medical; Visit Provider Internal Medicine Cardiovascular Disease | DX: R69 Illness, unspecified (principal) ==

== ENCOUNTER 2019-10-09 23:45 | Emergency (ER) | payer MEDICARE, SELFPAY ==
[2019-10-09 23:48] VITALS: BP 123/80; PULSE 53; RESP 16; TEMP 36.4; O2SAT 97
[2019-10-10] VITALS (83 sets, daily range): BP systolic 94–132; BP diastolic 46–64; PULSE 56–94; RESP 13–25; TEMP 37; O2SAT 85–100
--- NOTE | 2019-10-10 00:01 | NUR.NOTE ---
To room 3 with c/o RUQ pain, N/V since 1800. Pt reprots had been checked for gall bladder in march 2019. Ruth had pork and mashed potatoes for dinner, reports 6/10 sharp, constant RUQ pain with associated N/V. Last BM 10/09/2019, loose. Denies black/bloody stools. Hx of [place] on 09/23/2019, seen at [facility], had cardiac cath via groin. Denies CP. +SOB, because of the pain. SB on monitor. #18 RAC, labs drawn.
[2019-10-10 00:09] LABS: Abs Immature Grans 0.04 k/cumm (0.0-0.09); Absolute Basophil Count 0.03 k/cumm (0.0-0.2); Absolute Monocyte Count 0.84 k/cumm (0.11-0.7); Basophils % 0.2; Eosinophils % 0.9; HCT 36.3 % (36.0-46.0); HGB 12.5 g/dL (12.0-15.5); Immature Grans % 0.3 %; Lymphocytes % 12.1; Mean Corp. HGB Concentration 34.4 g/dL (32.0-36.0); Mean Corpuscular Hemoglobin 31.6 pg (27.0-33.0); Mean Corpuscular Volume 91.7 fL (80-95); Mean Platelet Volume 11.7 fL (8.0-11.0); Monocytes % 6.1; Neutrophils % 80.4; Platelet Count 255 x1000/uL (130-400); RBC 3.96 m/cumm (4.00-5.20); RBC Distribution Width 15.3 % (11.7-14.6); White Blood Cell Count 13.75 k/cumm (4.4-10.8)
[2019-10-10 00:11] LABS: Absolute Eosinophil Count 0.12 k/cumm (0.0-0.7); Absolute Lymphocyte Count 1.66 k/cumm (1.2-3.4); Absolute Neutrophil Count 11.06 k/cumm (1.2-6.7)
[2019-10-10 00:21] LABS: ALT 21 U/L (14-59); AST 17 U/L (15-37); Albumin 3.7 g/dL (3.4-5.0); Alkaline Phosphatase 95 U/L (46-116); Anion Gap 11.9 mmol/L (3-11); BUN 14 mg/dL (7-18); Bilirubin, Total 0.6 mg/dL (0.2-1.0); CO2 23.1 mmol/L (21.0-32.0); Calcium 8.7 mg/dL (8.5-10.1); Chloride 107 mmol/L (98-107); Estimated GFR 54.81 (mL/min/1.73m2); Glucose 131 mg/dL (74-106); Lipase 242 U/L (73-393); Magnesium 1.9 mg/dL (1.8-2.4); Potassium 3.5 mmol/L (3.5-5.1); Sodium 142 mmol/L (136-145); Total Protein 6.8 g/dL (6.4-8.2)
[2019-10-10 00:22] LABS: Troponin I < 0.05 ng/Ml (<0.06)
[2019-10-10 00:26] LABS: INR 1.1 (0.9-1.1); PTT Activated 24.1 sec (21.0-31.4); Prothrombin Time 11.2 sec (9.3-11.0)
[2019-10-10] MEDS: HYDROmorphone 2 MG/ML VIAL 1 MG IVP ×3 (00:27→12:41)
[2019-10-10] MEDS: Ondansetron 4 MG/2 ML VIAL IVP ×2 (00:27→05:22)
[2019-10-10] MEDS: Normal Saline Flush 10 ML SYR IVP ×2 (00:28→12:42)
--- NOTE | 2019-10-10 00:45 | DI.CT_ITS ---
EXAM: CT ABDOMEN PELVIS W CLINICAL HISTORY: ruq abdominal pain, tenderness TECHNIQUE: Post IV and without oral contrast. COMPARISON: PELVIS TRANSVAG from 09/29/2017 FINDINGS: The gallbladder is abnormally distended and shows wall thickening. Sludge is faintly visible. Ther e is no biliary dilatation or focal liver lesions. Findings may represent acute cholecystitis. Ther e is a small hiatal hernia. There are bilateral breast implants. The spleen, pancreas, kidneys, adr enals and urinary bladder are unremarkable. There is a right-sided ovarian cyst measuring 3.6 cm in maximal dimension. It appeared simple on previous pelvic ultrasound from 2018. Uterus is retroflexe d. The left ovary is unremarkable. There is no free fluid. The aorta shows mild calcification and is normal in diameter. There is no bowel dilatation or inflammatory change. IMPRESSION: Distended gallbladder with thick wall, suspicious for acute cholecystitis. A right ovarian cyst is s een.
--- NOTE | 2019-10-10 00:49 | W.ED.GENAD ---
Discharge Plan Disposition Patient Disposition: [facility] Condition: Serious Discharge Details Chief Complaint: Abd Prob Clinical Impression: Acute cholecystitis Primary Care Provider: Moy Pérez ED Provider: Basilia Kat Home Meds and New Rx's Prescriptions: No Action melatonin 5 mg capsule 5 mg PO HS PRNRF: 0 metoprolol succinate 100 mg tablet extended release 24 hr 200 mg PO DAILY RF: 0 pantoprazole 40 mg tablet,delayed release (DR/EC) 40 mg PO DAILY RF: 0 EFFEXOR 37.5 MG tablet 37.5 mg PO DAILY RF: 0 ibuprofen 600 MG tablet 600 mg PO Q6H PRN PRNQty: 30 RF: 0 atorvastatin 80 mg Tablet 80 mg PO HS RF: 0 aspirin [Aspirin Low Dose] 81 mg Tablet,Delayed Release (Dr/Ec) 81 mg PO DAILY RF: 0 calcium carbonate [Tums] 200 mg calcium (500 mg) Tablet,Chewable 1 PO TID PRNRF: 0 nitroglycerin 0.4 mg Tablet, Sublingual 0.4 mg sublingual [id number] PRNRF: 0 furosemide [Lasix] 20 mg Tablet 20 mg PO PRN PRNRF: 0 Brilinta 90 mg Tablet 90 mg PO BID RF: 0 Discharge Data Discharge Date/Time-TO BE ENTERED AT DEPARTURE: 10/10/19 13:40 Medical Decision Making <Robert Kat MD - Last Filed: 10/25/19 17:24> 12:30 --69-year-old female with multiple medical problems including history of NSTEMI 2 weeks ago requiring stent placement, cholelithiasis, here with right upper quadrant pain, nausea and vomiting that started postprandially around 6 PM tonight. Patient is tender in her right upper quadrant has positive Murguia sign. Bedside [id number] ultrasound was performed by me and reveals dilated gallbladder with fixed hyperechoic focus in the fundus of the gallbladder, no pericholecystic fluid. Screening ECG was reviewed and interpreted by me: Sinus rhythm with bradycardia, heart rate 48, incomplete right bundle branch block, T wave inversions noted inferior lateral, patient did have T wave inversions on prior ECG 10/03/2019. Labs reviewed and nondiagnostic. Leukocytosis noted. Normal LFTs and lipase. Normal troponin. Initial plan for official ultrasound. Unfortunately clinical technologist is not available. I will obtain CT of the abdomen pelvis to assess for acute surgical pathology. Patient was given Dilaudid 1 mg IV for analgesia and Zofran 4 mg IV for antiemetic. 2:00 --CT of the abdomen pelvis interpreted by radiology: IMPRESSION: Distended gallbladder. Suspect sludge and stones within the gallbladder. Further evaluation could be obtained with an ultrasound examination. Right ovarian cyst. This could be followed up with an ultrasound examination in 1 months time to assess for stability or resolution. The uterus is retroflexed. Small hiatal hernia. Osseous findings as above. Patient reassessed and pain significantly improved. Abdominal exam benign. No longer tender right upper quadrant. I discussed diagnostic treatment options with the patient. Plan will be to observe over the next couple hours, recheck labs and obtain right upper quadrant abdominal ultrasound when available later this morning. Suspect biliary colic. Plan to cover empirically with ceftriaxone for possible early cholecystitis. 5:30 -- Patient noted to have recurrent pain when ambulating to bathroom. Dilaudid 0.5mg IV given and additional zofran 4mg given. Ultrasound pending. Repeat labs pending. 8:22 --ultrasound of the right upper quadrant interpreted by production control technologist as gallstones present, gallbladder wall thickening of 6 mm, pericholecystic fluid present. Plan to add Flagyl 500 mg IV. I called and spoke with Dr. Prieto, on-call general surgeon, discussed ED presentation and course including pertinent history, she recommends transfer to tertiary care facility given cardiac history. [place] [facility] [place] and [place] emergent [place]. Images sent for review. Awaiting callback. 8:40 --I spoke with [place] Godfrey [place] [facility] [place] in [place]. Awaiting bed placement. Will arrange for glass processing worker services. Patient informed of all diagnostic results and treatment plan. Patient consents to transfer. <Basilia Kat MD - Last Filed: 10/12/19 12:47> Eloisa Galindo was signed out to me by Dr. Robert Kat at time of shift change with transfer to [facility] for acute cholecystitis pending. On reassessment, patient reporting some return of pain after receiving Dilaudid earlier this morning. Plan for re-dose. Patient reassessed, continuing to feel well, rates her pain 2-3 after medication. We continue to await bed assignment from [facility]. Patient requesting additional pain medication, pain increasing, now 6 out of 10. Will re-dose. Patient reports feeling otherwise well, no other symptoms. Bed assignment provided, plan for transfer. Patient reporting pain well managed at this time, no other symptoms. Patient left the department with medics without further issue. Clinical impression: cholecystitis Disposition: Transfer to [facility] Medical Records Medical records reviewed: Yes I reviewed the patient's medical records. Lab Data Lab results reviewed: Yes I reviewed the patient's lab results. HPI <Robert Kat MD - Last Filed: 10/25/19 17:24> General Mode of arrival: ambulatory. Date/Time Provider Initiated Documentation: 10/09/19 23:46. Limitations to Documentation: no limitations. Information obtained by: patient. HPI Narrative: 69-year-old female with multiple medical problems including history of recent end STEMI, hypertrophic cardiomyopathy, cholelithiasis, presents with chief complaint of right upper quadrant pain. Pain started around 6 PM after eating dinner. Pain has persisted. Pain is severe. Pain is described as sharp. She had associated nausea and vomiting. Prior to this sudden onset of right upper quadrant pain, patient was pain-free and doing well today. She denies chest pain or shortness of breath. Related Data Home Medications Medication Instructions Recorded Confirmed Effexor 37.5 mg PO DAILY 01/04/13 10/09/19 ibuprofen 600 mg PO Q6H PRN PRN #30 tab 11/17/15 10/10/19 metoprolol succinate 100 mg 200 mg PO DAILY 02/01/19 10/09/19 tablet,extended release 24 hr pantoprazole 40 mg tablet,delayed 40 mg PO DAILY 02/01/19 10/09/19 release melatonin 5 mg capsule 5 mg PO HS PRN cap 02/11/19 10/10/19 Brilinta 90 mg PO BID 10/03/19 10/09/19 aspirin [Aspirin Low Dose] 81 mg PO DAILY 10/03/19 10/09/19 atorvastatin 80 mg PO HS 10/03/19 10/09/19 calcium carbonate [Tums] 1 PO TID PRN 10/03/19 furosemide [Lasix] 20 mg PO PRN PRN 10/03/19 10/09/19 nitroglycerin 0.4 mg SUBLINGUAL [id number] PRN 10/03/19 10/10/19 Previous Rx's Medication Instructions Recorded ibuprofen 600 mg PO Q6H PRN PRN #30 tab 11/17/15 Allergies Allergy/AdvReac Type Severity Reaction Status Date / Time cortisone [Cortisone] AdvReac Severe VOMITING, Unverified 10/03/19 18:11 DIARRHEA General Stated Complaint: Abd Prob KYLE: 2 Review of Systems <Robert Kat MD - Last Filed: 10/25/19 17:24> All systems reviewed & are unremarkable except as noted in HPI and below Constitutional Constitutional: Denies fever(s) Gastrointestinal Gastrointestinal: Reports as per HPI PFSH <Robert Kat MD - Last Filed: 10/25/19 17:24> Medical History Blood glucose elevated (Chronic) breast cancer CAD (coronary artery disease) (Chronic) Cholelithiasis (Acute) Dyspnea (Acute) GERD (gastroesophageal reflux disease) (Chronic) Hypertrophic obstructive cardiomyopathy (Chronic) Mitral regurgitation (Chronic) Nonsustained paroxysmal supraventricular tachycardia (Acute) Pneumonia (Acute) Pulmonary nodule (Acute) Thyroid mass (Chronic) Vertigo (Chronic) Surgical History Breast, Mastectomy 2000 section X2 Social History Smoking/Tobacco Use Status: Never Alcohol Intake: current Alcohol Intake frequency: holidays/special occasions only Drug use: Never Substance use type: does not use Household members: spouse Do you feel safe at home: Yes Do you feel safe in your relationship?: Yes Exam <Robert Kat MD - Last Filed: 10/25/19 17:24> Const General: cooperative and no acute distress HENMT Mouth: moist mucous membranes Eyes Conjunctivae: normal conjunctivae Sclera: normal sclerae Neck Neck: trachea midline and supple Resp Auscultation: clear to auscultation bilaterally, no rales, no rhonchi and no wheezes Cardio Jugular venous pressure: no JVD Rate: regular rate and not tachycardic Rhythm: regular rhythm GI Palpation: soft, not firm, no guarding, no hepatosplenomegaly, no masses, not rigid and tender in the RUQ and Murguia's sign positive; with no rebound tenderness Auscultation: normal bowel sounds Skin General skin exam: no rashes or lesions noted Neuro General: alert, awake and tone normal Extrem General: no edema Psych Appearance: grossly normal Mental Status: mental status grossly normal Course <Robert Kat MD - Last Filed: 10/25/19 17:24> Vital Signs Vital signs: Vital Signs Temperature 36.4 C L 10/09/19 23:48 Pulse 53 L 10/09/19 23:48 Respiratory Rate 16 10/09/19 23:48 Blood Pressure 123/80 10/09/19 23:48 Pulse Oximetry 97 10/09/19 23:48 Temperature 36.4 C L 10/09/19 23:48 Temperature Source Skin 10/09/19 23:48 Pulse 56 L 10/10/19 00:30 Respiratory Rate 25 H 10/10/19 00:30 Respiratory Effort 10/09/19 23:53 Blood Pressure 125/52 L 10/10/19 00:30 Blood Pressure Position Sitting 10/09/19 23:48 Pulse Oximetry 100 10/10/19 00:30 Oxygen Delivery Method Room Air 10/10/19 00:30 Oxygen Flow Rate 0 10/10/19 00:30 Pain Level 7 10/10/19 00:30 Lab/Test Results Lab/Test Results: Laboratory Tests Range/Units 10/09/19 10/09/19 10/09/19 00:00 00:00 00:00 WBC (4.4-10.8) k/cumm 13.75 H RBC (4.00-5.20) m/cumm 3.96 L Hgb (12.0-15.5) g/dL 12.5 Hct (36.0-46.0) % 36.3 MCV (80-95) fL 91.7 MCH (27.0-33.0) pg 31.6 MCHC (32.0-36.0) g/dL 34.4 RDW (11.7-14.6) % 15.3 H Plt Count (130-400) x1000/uL 255 MPV (8.0-11.0) fL 11.7 H Immature Gran % % 0.3 Neutrophils % 80.4 Lymphocytes % 12.1 Monocytes % 6.1 Eosinophils % 0.9 Basophils % 0.2 Absolute Neutrophils (1.2-6.7) k/cumm 11.06 H Absolute Lymphocytes (1.2-3.4) k/cumm 1.66 Absolute Monocytes (0.11-0.7) k/cumm 0.84 H Absolute Eosinophils (0.0-0.7) k/cumm 0.12 Absolute Basophils (0.0-0.2) k/cumm 0.03 PT (9.3-11.0) sec 11.2 H INR (0.9-1.1) 1.1 APTT (21.0-31.4) sec 24.1 Sodium (136-145) mmol/L 142 Potassium (3.5-5.1) mmol/L 3.5 Chloride (98-107) mmol/L 107 Carbon Dioxide (21.0-32.0) mmol/L 23.1 Anion Gap (3-11) mmol/L 11.9 H BUN (7-18) mg/dL 14 Creatinine (0.55-1.02) mg/dL 1.00 Estimated GFR/1.73 m2 (mL/min/1.73m2) 54.81 Glucose (74-106) mg/dL 131 H Calcium (8.5-10.1) mg/dL 8.7 Magnesium (1.8-2.4) mg/dL 1.9 Total Bilirubin (0.2-1.0) mg/dL 0.6 AST (15-37) U/L 17 ALT (14-59) U/L 21 Alkaline Phosphatase (46-116) U/L 95 Troponin I (<0.06) ng/Ml < 0.05 Total Protein (6.4-8.2) g/dL 6.8 Albumin (3.4-5.0) g/dL 3.7 Lipase (73-393) U/L 242 Sign Out <Robert Kat MD - Last Filed: 10/25/19 17:24> Sign Out Data: Sign Out Comment: Care signed out to Dr. Basilia Kat -patient pending transfer Last updated by Robert Kat MD at 10/10/19 08:42
[2019-10-10] MEDS: Omnipaque 350 MG/ML 100 ML BTL IJ (01:06)
--- NOTE | 2019-10-10 01:26 | DI.VRAD_ITS ---
PROCEDURE INFORMATION: Exam: CT Abdomen And Pelvis With Contrast Exam date and time: 10/10/2019 12:55 AM Age: 69 years old Clinical indication: Nausea and vomiting; Abdominal pain; Localized; Right upper quadrant (ruq); Prior surgery; Surgery date: 6+ months; Surgery type: ; Patient HX: Ruq pain for 7 hours increasing in severity, nausea TECHNIQUE: Imaging protocol: Computed tomography of the abdomen and pelvis with intravenous contrast. Radiation optimization: All CT scans at this facility use at least one of these dose optimization techniques: automated exposure control; mA and/or kV adjustment per patient size (includes targeted exams where dose is matched to clinical indication); or iterative reconstruction. Contrast material: OMNIPAQUE 350; Contrast volume: 91 ml; Contrast route: IV RAC; COMPARISON: US PELVIS TRANSVAG 09/29/2017 5:35 PM FINDINGS: Lungs: There is suspected rounded atelectasis at the left lung base. There are dependent atelectatic changes at the lung bases. Heart: The visualized portions of the heart and pericardium are unremarkable. Mediastinum: There is a small hiatal hernia. Liver: The liver is within normal limits. Gallbladder and bile ducts: The gallbladder is distended. There is suspected sludge and stones within the gallbladder. Pancreas: The pancreas is within normal limits. Spleen: The spleen is within normal limits. There is a splenule. Adrenals: The adrenal glands are unremarkable. Kidneys and ureters: The kidneys are within normal limits. Stomach and bowel: Unremarkable. No obstruction. No mucosal thickening. Appendix: No evidence of appendicitis. Intraperitoneal space: Unremarkable. No free air. No significant fluid collection. Vasculature: There are arteriosclerotic changes of the aorta. Lymph nodes: No enlarged lymph nodes. Bladder: The urinary bladder is within normal limits. Reproductive: There is a right ovarian cyst measuring 3.6 x 2.9 cm. The left ovary is unremarkable. The uterus is retroflexed. Bones/joints: There are degenerative changes of the thoracic and lumbar spines. There are degenerative changes and degenerative disc disease at L5-S1. There are slight degenerative changes of both hips. Soft tissues: The patient is status post bilateral breast implants. IMPRESSION: Distended gallbladder. Suspect sludge and stones within the gallbladder. Further evaluation could be obtained with an ultrasound examination. Right ovarian cyst. This could be followed up with an ultrasound examination in 1 months time to assess for stability or resolution. The uterus is retroflexed. Small hiatal hernia. Osseous findings as above. Dictated and Authenticated by: Jabier Watkins MD. Ordering:BRADLEY Jones MD
[2019-10-10] MEDS: Normal Saline 1,000 ML 150 ML IV (01:41)
[2019-10-10] MEDS: cefTRIAXone 1 GM/50 ML BAG IVPB (02:10)
--- NOTE | 2019-10-10 05:09 | NUR.NOTE ---
up to BR with steady gait. report pain increasing. Med a/o.
[2019-10-10] MEDS: HYDROmorphone 2 MG/ML VIAL 0.5 MG IVP (05:17)
[2019-10-10 05:39] LABS: Abs Immature Grans 0.02 k/cumm (0.0-0.09); Absolute Basophil Count 0.01 k/cumm (0.0-0.2); Absolute Eosinophil Count 0.04 k/cumm (0.0-0.7); Absolute Lymphocyte Count 1.08 k/cumm (1.2-3.4); Absolute Monocyte Count 0.89 k/cumm (0.11-0.7); Absolute Neutrophil Count 8.73 k/cumm (1.2-6.7); Basophils % 0.1; Eosinophils % 0.4; HCT 34.5 % (36.0-46.0); HGB 11.8 g/dL (12.0-15.5); Immature Grans % 0.2 %; Mean Corp. HGB Concentration 34.2 g/dL (32.0-36.0); Mean Corpuscular Hemoglobin 31.4 pg (27.0-33.0); Mean Corpuscular Volume 91.8 fL (80-95); Mean Platelet Volume 11.9 fL (8.0-11.0); Monocytes % 8.3; Platelet Count 214 x1000/uL (130-400); RBC 3.76 m/cumm (4.00-5.20); RBC Distribution Width 15.4 % (11.7-14.6); White Blood Cell Count 10.77 k/cumm (4.4-10.8)
[2019-10-10 05:57] LABS: ALT 26 U/L (14-59); AST 21 U/L (15-37); Albumin 3.4 g/dL (3.4-5.0); Alkaline Phosphatase 86 U/L (46-116); Anion Gap 12.5 mmol/L (3-11); BUN 12 mg/dL (7-18); Bilirubin, Total 0.4 mg/dL (0.2-1.0); CO2 23.5 mmol/L (21.0-32.0); CREATININE 0.85 mg/dL (0.55-1.02); Calcium 8.2 mg/dL (8.5-10.1); Chloride 109 mmol/L (98-107); Glucose 105 mg/dL (74-106); Lipase 114 U/L (73-393); Potassium 3.7 mmol/L (3.5-5.1); Sodium 145 mmol/L (136-145); Total Protein 5.8 g/dL (6.4-8.2)
[2019-10-10 06:33] LABS: Troponin I < 0.05 ng/Ml (<0.06)
--- NOTE | 2019-10-10 07:53 | DI.US_ITS ---
EXAM: US ABDOMEN LIMITED CLINICAL HISTORY: ruq pain TECHNIQUE: Ultrasound performed using standard protocol. COMPARISON: CT ABDOMEN PELVIS W from 10/10/2019 FINDINGS: Sludge and multiple tiny stones are noted in the gallbladder. There is gallbladder wall thickening up to 7 millimeters. There is a small amount pericholecystic fluid. The gallbladder is tender. No obstructing stone is seen in the gallbladder neck or cystic duct. Common bile duct measures 6 millim eters in diameter. No common duct stone is seen. IMPRESSION: Thick walled gallbladder with stones and sludge, suspicious for acute cholecystitis.
[2019-10-10] MEDS: metroNIDAZOLE 500 MG/100 ML BAG 100 MG IVPB (08:27)
== END 2019-10-10 13:40 | disposition short-term general hospital (02) ==
PROVIDERS: Student in an Organized Health Care Education/Training Program; Emergency Provider Student in an Organized Health Care Education/Training Program; PCP Physician Assistant Medical
DX: R10.11 Right upper quadrant pain (principal); R11.2 Nausea with vomiting, unspecified; K80.00 Calculus of gallbladder with acute cholecystitis without obstruction
CPT/HCPCS: 36415; 80053; 83690; 93005; 96361; 96365; 96367; 96375; 96376; 99285; 74177; 76705; 83735; 84484; 85025; 85610; 85730; 93010; J0696; J2405; J3490

== ENCOUNTER 2020-03-23 03:22 | Outpatient (CLI) | payer MEDICARE, SELFPAY ==
[2020-03-23 10:23] LABS: Abs Immature Grans 0.02 k/cumm (0.0-0.09); Absolute Basophil Count 0.01 k/cumm (0.0-0.2); Absolute Lymphocyte Count 1.39 k/cumm (1.2-3.4); Absolute Monocyte Count 0.45 k/cumm (0.11-0.7); Absolute Neutrophil Count 3.09 k/cumm (1.2-6.7); Basophils % 0.2; HCT 35.7 % (36.0-46.0); Immature Grans % 0.4 %; Lymphocytes % 27.5; Mean Corp. HGB Concentration 33.6 g/dL (32.0-36.0); Mean Corpuscular Hemoglobin 31.3 pg (27.0-33.0); Mean Platelet Volume 11.2 fL (8.0-11.0); Monocytes % 8.9; Platelet Count 201 x1000/uL (130-400); RBC 3.84 m/cumm (4.00-5.20); RBC Distribution Width 14.4 % (11.7-14.6); White Blood Cell Count 5.06 k/cumm (4.4-10.8)
[2020-03-23 10:33] LABS: ALT 29 U/L (14-59); AST 16 U/L (15-37); Albumin 3.7 g/dL (3.4-5.0); Amylase 73 U/L (25-115); Anion Gap 12.2 mmol/L (3-11); BUN 14 mg/dL (7-18); Bilirubin, Total 0.8 mg/dL (0.2-1.0); CO2 21.8 mmol/L (21.0-32.0); CREATININE 0.85 mg/dL (0.55-1.02); Chloride 107 mmol/L (98-107); Glucose 106 mg/dL (74-106); Potassium 3.3 mmol/L (3.5-5.1); Sodium 141 mmol/L (136-145)
[2020-03-23 10:43] LABS: INR 1.1 (0.9-1.1); PTT Activated 25.4 sec (21.0-31.4); Prothrombin Time 10.9 sec (9.3-11.0)
== END 2020-03-23 03:42 ==
PROVIDERS: PCP Physician Assistant Medical; Visit Provider Internal Medicine Cardiovascular Disease
DX: I42.2 Other hypertrophic cardiomyopathy (principal); Z01.818 Encounter for other preprocedural examination
CPT/HCPCS: 36415; 80051; 82947; 84520; 82040; 82150; 82247; 82565; 84450; 84460; 85025; 85610; 85730

== ENCOUNTER 2020-04-19 13:35 | Outpatient (REF) | payer MEDICARE, SELFPAY ==
[2020-04-21 15:17] LABS: SARS-CoV-2 RNA Undetected (Undetected); SARS-CoV-2 Specimen Source Nasopharynx
== END 2020-04-19 13:55 ==
LOC: NCHCN 13:35
PROVIDERS: PCP Physician Assistant Medical; Visit Provider Nurse Practitioner Family
DX: Z20.828 Contact with and (suspected) exposure to other viral communicable diseases (principal)
CPT/HCPCS: U0003

== ENCOUNTER 2020-09-27 12:30 | Outpatient (REF) | payer MEDICARE, SELFPAY ==
[2020-09-27 15:17] LABS: ALT 28 U/L (14-59); AST 21 U/L (15-37); BUN 18 mg/dL (7-18); CREATININE 0.81 mg/dL (0.55-1.02); Calcium 8.4 mg/dL (8.5-10.1); Calculated LDL 43 mg/dL (<100); Chloride 108 mmol/L (98-107); Cholesterol 123 mg/dL (<200); Glucose 105 mg/dL (74-106); HDL Cholesterol 46 mg/dL (40-60); Potassium 4.2 mmol/L (3.5-5.1); Sodium 142 mmol/L (136-145); TSH 3.71 uIU/mL (0.36-3.74); Triglyceride 172 mg/dL (<150)
[2020-09-27 15:29] LABS: Vitamin D 25 Total 13.8 ng/ml (30-100)
[2020-09-27 16:11] LABS: Creatine Kinase 50 U/L (26-192)
== END 2020-09-27 12:50 ==
LOC: NCHCN 12:30
PROVIDERS: PCP Physician Assistant Medical; Visit Provider Nurse Practitioner Family
DX: I25.2 Old myocardial infarction (principal); I42.1 Obstructive hypertrophic cardiomyopathy; E07.9 Disorder of thyroid, unspecified; E55.9 Vitamin D deficiency, unspecified; K21.9 Gastro-esophageal reflux disease without esophagitis; Z95.0 Presence of cardiac pacemaker
CPT/HCPCS: 80048; 80061; 82306; 82550; 84443; 84450; 84460

== ENCOUNTER 2020-12-20 00:50 | Outpatient (CLI) | payer MEDICARE, SELFPAY ==
--- NOTE | 2020-12-20 | DI.DEXA_ITS ---
EXAM: XR DEXA BONE DENSITY W/WO ALEXANDER CLINICAL HISTORY: SCREENING FOR OSTEOPOROSIS IN POSTMENOPAUSAL WOMAN,Z78.0 TECHNIQUE: HoloZero Locus horizon C densitometer. Bone mineral density evaluation of the lumbar spine, lef t hip and left forearm. COMPARISON: No exams were available for comparison FINDINGS: The lateral view of the thoracic and lumbar spine shows no evidence of compression fractures. Bone mineral density measurements of the lumbar spine correspond to a total T-score of -0.6, in the n ormal range. Bone mineral density measurements of the left hip correspond to a total T-score of -1.6 and a femoral neck T-score of -2.2, in the osteopenic range. The left forearm bone mineral density measurements correspond to a T-score of the distal 3rd of -1.8, in the osteopenic range. IMPRESSION: Normal bone mineral density of the lumbar spine. Osteopenia of the left hip and left forearm.
== END 2020-12-20 01:10 ==
PROVIDERS: PCP Physician Assistant Medical; Visit Provider Nurse Practitioner Family
DX: M85.88 Other specified disorders of bone density and structure, other site (principal); Z78.0 Asymptomatic menopausal state
CPT/HCPCS: 77080

== ENCOUNTER → 2020-12-27 11:00 | Outpatient (BNVA) | payer MEDICARE, SELFPAY | PROVIDERS: PCP Physician Assistant Medical; Referring Provider Physician Assistant Medical; Visit Provider Physical Therapy Assistant | DX: Z12.11 Encounter for screening for malignant neoplasm of colon (principal) ==

== ENCOUNTER 2021-09-25 15:23 | Outpatient (REF) | payer MEDICARE, SELFPAY ==
[2021-09-25 13:29] LABS: ALT 66 U/L (14-59); AST 26 U/L (15-37); Anion Gap 12.7 mmol/L (3-11); BUN 24 mg/dL (7-18); CO2 21.3 mmol/L (21.0-32.0); CREATININE 1.1 mg/dL (0.55-1.02); Calcium 8.8 mg/dL (8.5-10.1); Calculated LDL 43 mg/dL (<100); Chloride 107 mmol/L (98-107); Cholesterol 109 mg/dL (<200); Estimated GFR 48.82 (mL/min/1.73m2); Glucose 138 mg/dL (74-106); HDL Cholesterol 39 mg/dL (40-60); Sodium 141 mmol/L (136-145); TSH (W/Ref FT4) 3.09 uIU/mL (0.36-3.74); Triglyceride 139 mg/dL (<150)
[2021-09-25 13:40] LABS: Creatine Kinase 35 U/L (26-192)
== END 2021-09-25 15:24 | disposition home or self-care (01) ==
LOC: NCHCN 15:23
PROVIDERS: PCP Physician Assistant Medical; Visit Provider Nurse Practitioner Family
DX: I25.2 Old myocardial infarction (principal); E04.1 Nontoxic single thyroid nodule; E55.9 Vitamin D deficiency, unspecified; R73.9 Hyperglycemia, unspecified; I42.1 Obstructive hypertrophic cardiomyopathy
CPT/HCPCS: 80048; 80061; 82306; 82550; 84443; 84450; 84460

== ENCOUNTER 2022-02-18 15:11 | Outpatient (REF) | payer MEDICARE, SELFPAY ==
[2022-02-20 05:35] LABS: Vitamin D 25 Total 28.1 ng/mL (30-100)
== END 2022-02-18 15:12 | disposition home or self-care (01) ==
LOC: NCHCN 15:11
PROVIDERS: PCP Physician Assistant Medical; Visit Provider Nurse Practitioner Family
DX: E55.9 Vitamin D deficiency, unspecified (principal)
CPT/HCPCS: 82306

== ENCOUNTER 2022-11-19 17:40 | Outpatient (REF) | payer MEDICARE, SELFPAY ==
[2022-11-19 15:50] LABS: ALT 55 U/L (14-59); AST 36 U/L (15-37); Albumin 3.8 g/dL (3.4-5.0); Alkaline Phosphatase 113 U/L (46-116); Anion Gap 8.8 mmol/L (3-11); BUN 14 mg/dL (7-18); Bilirubin, Total 0.8 mg/dL (0.2-1.0); CO2 25.2 mmol/L (21.0-32.0); Calcium 9.3 mg/dL (8.5-10.1); Chloride 109 mmol/L (98-107); Estimated GFR 59.49 (mL/min/1.73m2); Glucose 129 mg/dL (74-106); HDL Cholesterol 43 mg/dL (40-60); LDL CHOLESTEROL 56 mg/dL (<100); Sodium 143 mmol/L (136-145); TSH (W/Ref FT4) 2.74 uIU/mL (0.36-3.74); Total Protein 6.8 g/dL (6.4-8.2)
[2022-11-19 16:12] LABS: Creatine Kinase 41 U/L (26-192)
[2022-11-19 16:20] LABS: Vitamin D 25 Total 57.1 ng/mL (30-100)
== END 2022-11-19 17:41 | disposition home or self-care (01) ==
LOC: NCHCN 17:40
PROVIDERS: PCP Physician Assistant Medical; Visit Provider Nurse Practitioner Family
DX: I25.2 Old myocardial infarction (principal); E04.1 Nontoxic single thyroid nodule; E55.9 Vitamin D deficiency, unspecified
CPT/HCPCS: 80053; 82306; 82550; 83721; 83718; 84443

== ENCOUNTER 2022-12-18 10:28 | Outpatient (RCR) | payer MEDICARE, SELFPAY ==
--- NOTE | 2022-12-18 10:30 | HOLTER_ITS ---
APPROVED REPORT Conclusion This is a 48-hour Holter monitor ordered for palpitations and chest pain Predominant rhythm is sinus, though there is occasional atrial and ventricular pacing Average heart rate is 73. Minimum is 61, maximum 105 There are rare ventricular ectopic beats There is no atrial fibrillation No patient symptoms were reported
== END 2023-01-11 23:59 | disposition home or self-care (01) ==
LOC: CARDOPNVT 10:28
PROVIDERS: PCP Physician Assistant Medical; Visit Provider Nurse Practitioner Family
DX: R00.2 Palpitations (principal); R07.9 Chest pain, unspecified
CPT/HCPCS: 93227; 93225; 93226

== ENCOUNTER → 2024-02-19 18:43 | Outpatient (CLI) | payer MEDICARE, SELFPAY ==
--- NOTE | 2024-02-19 | DI.RAD_ITS ---
Exam(s) XR CHEST 2V PA LATERAL EXAM: XR CHEST 2V PA LATERAL CLINICAL HISTORY: influenza. TECHNIQUE: 2D digital imaging was performed. COMPARISON: CR,XR XR PORTABLE CHEST AP from 10/03/2019 FINDINGS: 2 views: There has been interval sternotomy and there is a bipolar right subclavian pacemaker with lead tips i n RA and right ventricle. Heart size is normal. The mediastinum is not widened. Lungs are clear. No infiltrates nor pleural effusions. No evidence of pulmonary edema. IMPRESSION: No acute pulmonary findings. Sternotomy and pacemaker noted. No CHF DATA REPOSITORY: RADIATION DOSE DELIVERED:
--- NOTE | 2024-02-19 19:06 | DI.VRAD_ITS ---
PROCEDURE INFORMATION: Exam: XR Chest Exam date and time: 02/19/2024 6:50 PM Age: 73 years old Clinical indication: Other: Influenza TECHNIQUE: Imaging protocol: Radiologic exam of the chest. Views: 2 views. COMPARISON: CR XR PORTABLE CHEST AP 10/03/2019 6:39 PM FINDINGS: Mildly limited due to rotation Pacemaker leads are grossly intact Lungs: Unremarkable. No consolidation. Pleural spaces: Unremarkable. No pleural effusion. No pneumothorax. Heart/Mediastinum: Post CABG. No cardiomegaly. Bones/joints: Unremarkable. IMPRESSION: No acute findings. Dictated and Authenticated by: Nelson Hargrove MD. Ordering:DEBBIE Vail MD
== END ==
PROVIDERS: PCP Physician Assistant Medical; Visit Provider Physician Assistant Medical
DX: J10.1 Influenza due to other identified influenza virus with other respiratory manifestations (principal)
CPT/HCPCS: 71046

== ENCOUNTER 2024-03-04 11:32 | Outpatient (REF) | payer MEDICARE, SELFPAY ==
[2024-03-04 15:07] LABS: Ferritin 297 ng/mL (8-252); TSH (W/Ref FT4) 2.48 uIU/mL (0.36-3.74)
== END 2024-03-04 11:33 | disposition home or self-care (01) ==
LOC: NCHCN 11:32
PROVIDERS: PCP Physician Assistant Medical; Visit Provider Nurse Practitioner Family
DX: R53.83 Other fatigue (principal); R79.89 Other specified abnormal findings of blood chemistry
CPT/HCPCS: 82728; 84443

== ENCOUNTER 2024-03-10 15:59 | Outpatient (REF) | payer MEDICARE, SELFPAY ==
[2024-03-10 19:11] LABS: HCT 23.9 % (36.0-46.0); MCH 40.8 pg (27.0-33.0); MCHC 32.6 % (32.0-36.0); Platelet Count 36 10^3/uL (130-400); RBC 1.91 10^6/uL (3.93-5.22); RDW 19.9 % (11.7-14.6); RDW-SD 87.3 fL
[2024-03-10 19:21] LABS: ALT 34 U/L (14-59); AST 38 U/L (15-37); Albumin 3.5 g/dL (3.4-5.0); Alkaline Phosphatase 71 U/L (46-116); Anion Gap 13.2 mmol/L (3-11); BUN 12 mg/dL (7-18); Bilirubin, Total 3.17 mg/dL (0.2-1.0); CO2 20.8 mmol/L (21.0-32.0); CREATININE 0.9 mg/dL (0.55-1.02); Calcium 8.5 mg/dL (8.5-10.1); Chloride 109 mmol/L (98-107); Estimated GFR 67.08 (mL/min/1.73m2); Glucose 137 mg/dL (74-106); Potassium 3.2 mmol/L (3.5-5.1); Sodium 143 mmol/L (136-145); Total Protein 6.5 g/dL (6.4-8.2)
[2024-03-10 19:57] LABS: WBC 2.54 10^3/uL (4.4-10.8)
[2024-03-10 19:58] LABS: HGB 7.8 g/dL (11.2-15.7); MCV 125 fL (80-95)
[2024-03-11 14:40] LABS: Abs Immature Grans 0.27 10^3/uL (0.0-0.06)
[2024-03-11 15:03] LABS: Absolute Neutrophil Count 0.43 10^3/uL (1.2-6.7)
[2024-03-11 15:04] LABS: Absolute Lymphocyte Count 1.78 10^3/uL (1.2-3.4); Absolute Monocyte Count 0.15 10^3/uL (0.1-0.8); Anisocytosis 2+; Diff Comment Manual Differential; Hypochromasia 1+; Metamyelocytes % 2; Myelocytes % 5; Polychromasia Present
== END 2024-03-10 16:00 | disposition home or self-care (01) ==
LOC: NCHCN 15:59
PROVIDERS: PCP Physician Assistant Medical; Visit Provider Physician Assistant Medical
DX: R53.83 Other fatigue (principal); D61.818 Other pancytopenia
CPT/HCPCS: 80053; 85027; 85007

== ENCOUNTER 2024-04-11 01:50 | Outpatient (RCR) | payer MEDICARE, SELFPAY ==
[2024-04-11 08:39] LABS: HCT 27.1 % (36.0-46.0); MCH 34.5 pg (27.0-33.0); MCHC 33.2 % (32.0-36.0); MCV 104 fL (80-95); RBC 2.61 10^6/uL (3.93-5.22); RDW 24.5 % (11.7-14.6); RDW-SD 83.3 fL
[2024-04-11 09:16] LABS: Absolute Eosinophil Count 0.02 10^3/uL (0.0-0.7); Absolute Lymphocyte Count 1.66 10^3/uL (1.2-3.4); Anisocytosis 2+; Atypical Lymphocytes % 6 %; Bands % 1 %; Diff Comment Manual Differential
[2024-04-11 09:23] LABS: Absolute Neutrophil Count 0.11 10^3/uL (1.2-6.7); WBC 1.91 10^3/uL (4.4-10.8)
== END 2024-04-13 23:59 | disposition home or self-care (01) ==
LOC: INF 01:50
PROVIDERS: PCP Physician Assistant Medical; Visit Provider Internal Medicine Hematology & Oncology
DX: D46.9 Myelodysplastic syndrome, unspecified (principal)
CPT/HCPCS: 36415; 86850; 86900; 86901; 85025

== ENCOUNTER 2024-04-13 01:35 | Outpatient (RCR) | payer MEDICARE, SELFPAY ==
[2024-03-25] MEDS: Normal Saline Flush 10 ML SYR IVP (08:18)
[2024-03-25 08:32] LABS: Abs Immature Grans 0.05 10^3/uL (0.0-0.06); HCT 25.8 % (36.0-46.0); HGB 8.8 g/dL (11.2-15.7); MCH 33.7 pg (27.0-33.0); MCHC 34.1 % (32.0-36.0); MCV 99 fL (80-95); MPV 12.3 fL (8.0-11.0); RBC 2.61 10^6/uL (3.93-5.22); RDW 21.7 % (11.7-14.6)
[2024-03-25 08:46] LABS: ALT 32 U/L (14-59); AST 23 U/L (15-37); Albumin 3.5 g/dL (3.4-5.0); Alkaline Phosphatase 90 U/L (46-116); Anion Gap 10.9 mmol/L (3-11); BUN 21 mg/dL (7-18); Bilirubin, Total 2.23 mg/dL (0.2-1.0); CO2 24.1 mmol/L (21.0-32.0); Calcium 9.1 mg/dL (8.5-10.1); Chloride 108 mmol/L (98-107); Estimated GFR 59.12 (mL/min/1.73m2); Glucose 204 mg/dL (74-106); Potassium 3.5 mmol/L (3.5-5.1); Sodium 143 mmol/L (136-145); Total Protein 6.4 g/dL (6.4-8.2)
[2024-03-25 09:00] LABS: Absolute Lymphocyte Count 1.25 10^3/uL (1.2-3.4); Absolute Monocyte Count 0.03 10^3/uL (0.1-0.8); Atypical Lymphocytes % 0 %; Bands % 0 %; Metamyelocytes % 1; Myelocytes % 2; Promyelocytes % 0
[2024-03-25 09:01] LABS: Anisocytosis 1+; Diff Comment Manual Differential; Other Cells % 0
[2024-03-25 09:06] LABS: Absolute Neutrophil Count 0.05 10^3/uL (1.2-6.7); Platelet Count 18 10^3/uL (130-400); WBC 1.37 10^3/uL (4.4-10.8)
[2024-03-25 14:56] VITALS: BP 105/70; PULSE 93; RESP 17; TEMP 36.1; O2SAT 99
[2024-03-25 15:13] VITALS: BP 105/66; PULSE 93; RESP 16; TEMP 36.1; O2SAT 99
[2024-03-28] VITALS (8 sets, daily range): BP systolic 94–116; BP diastolic 47–72; PULSE 77–83; RESP 17; TEMP 35.9–36.4; O2SAT 98–100
[2024-03-28] MEDS: Normal Saline Flush 10 ML SYR IVP ×2 (08:26→10:14)
[2024-03-28 09:31] LABS: Abs Immature Grans 0.04 10^3/uL (0.0-0.06); Absolute Lymphocyte Count 0.87 10^3/uL (1.2-3.4); Absolute Monocyte Count 0.04 10^3/uL (0.1-0.8); HCT 22.2 % (36.0-46.0); HGB 7.4 g/dL (11.2-15.7); Immature Grans % 3.6 %; Lymphocytes % 79.1 %; MCHC 33.3 % (32.0-36.0); MCV 99 fL (80-95); MPV 11.7 fL (8.0-11.0); Monocytes % 3.6 %; Neutrophils % 13.7 %; Nucleated RBC 5.5 % (0.0-0.3); RBC 2.24 10^6/uL (3.93-5.22); RDW 21.1 % (11.7-14.6); RDW-SD 67.4 fL
[2024-03-28 09:47] LABS: ALT 24 U/L (14-59); AST 22 U/L (15-37); Albumin 3.3 g/dL (3.4-5.0); Alkaline Phosphatase 76 U/L (46-116); Anion Gap 8.1 mmol/L (3-11); BUN 18 mg/dL (7-18); Bilirubin, Total 1.45 mg/dL (0.2-1.0); CO2 24.9 mmol/L (21.0-32.0); CREATININE 0.9 mg/dL (0.55-1.02); Calcium 8.7 mg/dL (8.5-10.1); Chloride 107 mmol/L (98-107); Estimated GFR 67.08 (mL/min/1.73m2); Glucose 182 mg/dL (74-106); Potassium 3.8 mmol/L (3.5-5.1); Sodium 140 mmol/L (136-145)
[2024-03-28 10:00] LABS: Anisocytosis 2+; Diff Comment Diff Reviewed; Polychromasia Present
[2024-03-28 10:05] LABS: Absolute Neutrophil Count 0.15 10^3/uL (1.2-6.7); Platelet Count 13 10^3/uL (130-400)
[2024-03-28] MEDS: diphenhydrAMINE 25 MG CAP PO (10:14)
[2024-03-28] MEDS: Acetaminophen 325 MG TAB 650 MG PO (10:14)
[2024-03-30 08:25] LABS: Abs Immature Grans 0.05 10^3/uL (0.0-0.06); HCT 26.4 % (36.0-46.0); HGB 8.9 g/dL (11.2-15.7); MCH 32.6 pg (27.0-33.0); MCHC 33.7 % (32.0-36.0); MCV 97 fL (80-95); RBC 2.73 10^6/uL (3.93-5.22); RDW 20.1 % (11.7-14.6)
[2024-03-30 08:42] LABS: Absolute Lymphocyte Count 0.87 10^3/uL (1.2-3.4); Absolute Monocyte Count 0.02 10^3/uL (0.1-0.8); Atypical Lymphocytes % 1 %; Diff Comment Manual Differential; Myelocytes % 1
[2024-03-30 08:43] LABS: ALT 30 U/L (14-59); AST 26 U/L (15-37); Albumin 3.4 g/dL (3.4-5.0); Alkaline Phosphatase 78 U/L (46-116); Anion Gap 9.6 mmol/L (3-11); Anisocytosis 1+; BUN 20 mg/dL (7-18); CO2 24.4 mmol/L (21.0-32.0); CREATININE 0.9 mg/dL (0.55-1.02); Calcium 8.8 mg/dL (8.5-10.1); Chloride 108 mmol/L (98-107); Estimated GFR 67.08 (mL/min/1.73m2); Glucose 165 mg/dL (74-106); Hypochromasia 1+; Potassium 4.5 mmol/L (3.5-5.1); Sodium 142 mmol/L (136-145); Total Protein 6.3 g/dL (6.4-8.2)
[2024-03-30 08:44] LABS: Poikilocytes 1+
[2024-03-30 08:52] LABS: WBC 1.05 10^3/uL (4.4-10.8)
[2024-03-30 08:53] LABS: Absolute Neutrophil Count 0.11 10^3/uL (1.2-6.7); Platelet Count 14 10^3/uL (130-400)
[2024-03-30] MEDS: Acetaminophen 325 MG TAB 650 MG PO (13:41)
[2024-03-30] MEDS: diphenhydrAMINE 25 MG CAP PO (13:41)
[2024-03-30 14:35] VITALS: BP 103/59; PULSE 83; RESP 18; TEMP 36.3; O2SAT 99
[2024-03-30 15:02] VITALS: BP 99/62; PULSE 78; RESP 17; TEMP 36.3; O2SAT 99
[2024-03-30] MEDS: Normal Saline Flush 10 ML SYR IVP (15:17)
[2024-04-01 08:35] LABS: Abs Immature Grans 0.05 10^3/uL (0.0-0.06); Absolute Lymphocyte Count 0.94 10^3/uL (1.2-3.4); Absolute Monocyte Count 0.05 10^3/uL (0.1-0.8); HCT 27.2 % (36.0-46.0); MCH 32.7 pg (27.0-33.0); MCHC 33.1 % (32.0-36.0); MCV 99 fL (80-95); MPV 11.7 fL (8.0-11.0); Nucleated RBC 10.5 % (0.0-0.3); RBC 2.75 10^6/uL (3.93-5.22); RDW 20.9 % (11.7-14.6); RDW-SD 60.6 fL
[2024-04-01 08:41] LABS: WBC 1.14 10^3/uL (4.4-10.8)
[2024-04-01 09:08] LABS: Platelet Count 19 10^3/uL (130-400)
[2024-04-01 09:10] LABS: Anisocytosis 3+; Diff Comment Manual Differential
[2024-04-01 09:14] LABS: Metamyelocytes % 2; Myelocytes % 1
[2024-04-01 12:45] LABS: Polychromasia Present
[2024-04-01] MEDS: diphenhydrAMINE 25 MG CAP PO (13:39)
[2024-04-01] MEDS: Normal Saline Flush 10 ML SYR IVP (13:40)
[2024-04-01] MEDS: Acetaminophen 325 MG TAB 650 MG PO (13:40)
[2024-04-01 13:59] VITALS: BP 101/63; PULSE 79; RESP 17; TEMP 36.3; O2SAT 100
[2024-04-04 09:00] LABS: Abs Immature Grans 0.11 10^3/uL (0.0-0.06); HCT 27.7 % (36.0-46.0); HGB 9.3 g/dL (11.2-15.7); MCH 33.5 pg (27.0-33.0); MCHC 33.6 % (32.0-36.0); MCV 100 fL (80-95); RBC 2.78 10^6/uL (3.93-5.22); RDW 22.2 % (11.7-14.6); RDW-SD 64.8 fL
[2024-04-04 09:44] LABS: Platelet Count 19 10^3/uL (130-400)
[2024-04-04 09:45] LABS: Absolute Monocyte Count 0.06 10^3/uL (0.1-0.8); Absolute Neutrophil Count 0.18 10^3/uL (1.2-6.7); MPV 11.2 fL (8.0-11.0)
[2024-04-04 09:46] LABS: Anisocytosis 2+; Diff Comment Manual Differential; Metamyelocytes % 2; Myelocytes % 2; Polychromasia Present
[2024-04-04] MEDS: diphenhydrAMINE 25 MG CAP PO (13:34)
[2024-04-04] MEDS: Acetaminophen 325 MG TAB 650 MG PO (13:34)
[2024-04-04] MEDS: Normal Saline Flush 10 ML SYR IVP (13:36)
[2024-04-04 13:59] VITALS: BP 114/69; PULSE 83; RESP 16; TEMP 35.7; O2SAT 99
[2024-04-04 14:13] VITALS: BP 106/66; PULSE 85; RESP 17; TEMP 35.8; O2SAT 100
[2024-04-06 08:31] LABS: HCT 28.3 % (36.0-46.0); HGB 9.5 g/dL (11.2-15.7); MCH 33.9 pg (27.0-33.0); MCHC 33.6 % (32.0-36.0); MCV 101 fL (80-95); MPV 11.8 fL (8.0-11.0); RDW-SD 73.8 fL
[2024-04-06 08:55] LABS: Absolute Lymphocyte Count 1.22 10^3/uL (1.2-3.4); Bands % 2 %
[2024-04-06 08:56] LABS: Anisocytosis 3+; Diff Comment Manual Differential; Metamyelocytes % 3; Myelocytes % 4
[2024-04-06 09:00] LABS: Polychromasia Present
[2024-04-06 09:09] LABS: Absolute Neutrophil Count 0.07 10^3/uL (1.2-6.7)
[2024-04-06 09:10] LABS: Other Cells % 1; Platelet Count 19 10^3/uL (130-400)
[2024-04-06 14:07] VITALS: BP 121/59; PULSE 68; RESP 18; TEMP 35.8; O2SAT 98
[2024-04-06] MEDS: Normal Saline Flush 10 ML SYR IVP (14:56)
[2024-04-11 13:37] VITALS: BP 121/59; PULSE 68; RESP 18; TEMP 35.8; O2SAT 98
[2024-04-13 09:00] LABS: Abs Immature Grans 0.29 10^3/uL (0.0-0.06); Absolute Lymphocyte Count 1.15 10^3/uL (1.2-3.4); HGB 8.1 g/dL (11.2-15.7); MCH 33.9 pg (27.0-33.0); MCHC 32.4 % (32.0-36.0); MCV 105 fL (80-95); MPV 11.6 fL (8.0-11.0); Nucleated RBC 16.4 % (0.0-0.3); RBC 2.39 10^6/uL (3.93-5.22); RDW 25.1 % (11.7-14.6); RDW-SD 85.4 fL
[2024-04-13 09:35] LABS: WBC 1.77 10^3/uL (4.4-10.8)
[2024-04-13 09:57] LABS: Atypical Lymphocytes % 6 %
[2024-04-13 09:59] LABS: Anisocytosis 2+; Diff Comment Manual Differential; Metamyelocytes % 3; Myelocytes % 4
[2024-04-13 10:00] LABS: Absolute Neutrophil Count 0.23 10^3/uL (1.2-6.7); Platelet Count 20 10^3/uL (130-400); Polychromasia Present
== END 2024-04-13 23:59 | disposition home or self-care (01) ==
LOC: INF 01:35
PROVIDERS: PCP Physician Assistant Medical; Visit Provider Internal Medicine Hematology & Oncology
DX: D46.9 Myelodysplastic syndrome, unspecified (principal)
CPT/HCPCS: 36415; 36430; 80053; 86850; 86900; 86901; 86920; 86945; P9073; 85025; P9016; P9035

== ENCOUNTER 2024-05-05 05:32 | Emergency (ER) | payer MEDICARE, SELFPAY ==
[2024-05-05 05:34] VITALS: BP 139/78; PULSE 89; RESP 18; O2SAT 98
[2024-05-05 05:38] VITALS: TEMP 35.1
--- NOTE | 2024-05-05 05:51 | ED.GENADUL_ITS ---
Discharge Plan Disposition Patient Disposition: Home Condition: Good Discharge Details Clinical Impression: Constipation, Neutropenia Primary Care Provider: Myo Pérez ED Provider: Louie Sheffield Home Meds and New Rx's Prescriptions: New docusate sodium [Colace] 100 mg capsule 100 mg PO BID Qty: 60 0RF No Action melatonin 5 mg capsule 5 mg PO HS PRN metoprolol succinate 100 mg tablet extended release 24 hr 50 mg PO DAILY EFFEXOR 37.5 MG tablet 37.5 mg PO DAILY esomeprazole magnesium 40 mg capsule,delayed release(DR/EC) 40 mg PO DAILY atorvastatin [Lipitor] 80 mg tablet 80 mg PO QHS mometasone [Nasonex] 50 mcg/actuation spray,non-aerosol 2 spray intranasal DAILY Rx Instructions: administer into each nostril ergocalciferol (vitamin D2) 1,250 mcg (50,000 unit) capsule 1,250 mcg PO QWEEK acetaminophen 325 mg capsule 650 mg PO ONCE PRN cholecalciferol (vitamin D3) 75 mcg (3,000 unit) tablet 75 mcg PO DAILY doxycycline monohydrate 100 mg capsule 100 mg PO DAILY ibuprofen 600 MG tablet 600 mg PO Q6H PRN PRNQty: 30 0RF aspirin [Araceli Low Dose Aspirin] 81 mg Tablet,Delayed Release (Dr/Ec) 81 mg PO DAILY calcium carbonate [Tums] 200 mg calcium (500 mg) Tablet,Chewable 1 PO TID PRN nitroglycerin 0.4 mg Tablet, Sublingual 0.4 mg sublingual [id number] PRN Discharge Instructions Instructions: Constipation in adults Additional Instructions: At this time you have evidence of constipation which has been resolved with the rectal exam and enemas that you were given. Please take the Colace as prescribed, and take it with 2 to 3 cups of water every day. Eat a diet high in fiber. If you notice any worsening of your symptoms, or any new symptoms such as vomiting, diarrhea, fever, chills, shortness of breath, chest pain, numbness, weakness, or fainting , please return immediately to the emergency department for reevaluation. Please follow up with your primary care provider as soon as possible for reassessment and reevaluation. As always, it was a pleasure participating in your medical care today. Referrals: Moy Pérez PA [Primary Care Provider] - HPI General Date/Time Provider Initiated Documentation: 05/05/24 05:34 . HPI Narrative: This is a very pleasant 74-year-old female with a past medical history of coronary artery disease, cholecystectomy, leukemia currently receiving chemotherapy through [facility], who presents today for evaluation of constipation. Patient states that she does not have a bowel movement in the last 3 days. She feels a very hard stool ball in her rectum. She has not been able to get it out. She admits to some mild rectal pain when trying to have bowel movement, but denies any abdominal pain otherwise. No vomiting. No recent opiate use. Related Data Home Medications ?Medication ?Instructions ?Recorded ?Confirmed Effexor 37.5 mg PO DAILY 01/04/13 01/22/23 ibuprofen 600 mg tablet 600 mg PO Q6H PRN PRN #30 tabs 11/17/15 01/22/23 melatonin 5 mg capsule 5 mg PO HS PRN 02/11/19 01/22/23 aspirin 81 mg tablet,delayed 81 mg PO DAILY 10/03/19 01/22/23 release (Araceli Low Dose Aspirin) calcium carbonate (Tums) 1 PO TID PRN 10/03/19 01/22/23 nitroglycerin 0.4 mg sublingual 0.4 mg sublingual [id number] PRN 10/03/19 01/22/23 tablet acetaminophen 325 mg capsule 650 mg PO ONCE PRN 10/16/20 01/22/23 atorvastatin 80 mg tablet (Lipitor) 80 mg PO QHS 10/16/20 01/22/23 ergocalciferol (vitamin D2) 1,250 1,250 mcg PO QWEEK 10/16/20 mcg (50,000 unit) capsule esomeprazole magnesium 40 mg 40 mg PO DAILY 10/16/20 01/22/23 capsule,delayed release mometasone 50 mcg/actuation nasal 2 spray intranasal DAILY 10/16/20 spray (Nasonex) metoprolol succinate 100 mg 50 mg PO DAILY 12/27/20 01/22/23 tablet,extended release 24 hr cholecalciferol (vitamin D3) 75 75 mcg PO DAILY 11/21/22 01/22/23 mcg (3,000 unit) tablet doxycycline monohydrate 100 mg 100 mg PO DAILY 11/21/22 01/22/23 capsule docusate sodium 100 mg capsule 100 mg PO BID #60 caps 05/05/24 (Colace) Previous Rx's ?Medication ?Instructions ?Recorded ibuprofen 600 mg tablet 600 mg PO Q6H PRN PRN #30 tabs 11/17/15 docusate sodium 100 mg capsule 100 mg PO BID #60 caps 05/05/24 (Colace) Allergies Allergy/AdvReac Type Severity Reaction Status Date / Time cortisone (Cortisone) AdvReac Severe VOMITING, Unverified 05/05/24 05:38 DIARRHEA General Stated Complaint: Abd Prob KYLE: 3 Review of Systems All systems reviewed & are unremarkable except as noted in HPI and below Exam Narrative Exam Narrative: 1.Const: Well-nourished, Well-developed, appearing stated age 2.Eyes: PERRL, no conjunctival injection, and symmetrical lids. 3.ENT: Atraumatic external nose and ears. Moist MM. Neck: Symmetric, trachea midline, No thyromegaly. 4.CVS: +S1/S2, No murmurs or gallops. Peripheral pulses 2+ and equal in all extremities. Brisk capillary refill in all extremities. 5.RESP: Unlabored respiratory effort. Clear to auscultation bilaterally. No wheezes rales or rhonchi 6.GI: Soft, Nontender/Nondistended, No hepatosplenomegaly. No guarding or rebound. Rectal exam demonstrates large hemorrhoid, no blood. Intact rectal tone. Extremely gently a single small fifth digit was very slowly and gently into the rectum just enough to feel if there was a hard stool ball, which there is and it is notably present at the edge of the rectal vault. No other digital exploration was performed. 7.MSK: Normocephalic/Atraumatic, Extremities w/o deformity or ttp No cyanosis or clubbing, Normal movement of all extremities 8.Skin: Warm, Dry. No rashes or lesions. 9.Neuro: pillowcase cutter II-XII grossly intact. Sensation grossly intact, no focal neurologic deficits. 10.Psych: (AAO) x3. Appropriate mood and affect Course Vital Signs Vital signs: Vital Signs Pulse 89 05/05/24 05:34 Respiratory Rate 18 05/05/24 05:34 Blood Pressure 139/78 05/05/24 05:34 Pulse Oximetry 98 05/05/24 05:34 Temperature 35.1 C L 05/05/24 05:38 Temperature Source Temporal Artery Scan 05/05/24 05:38 Pulse 89 05/05/24 05:34 Respiratory Rate 18 05/05/24 05:34 Respiratory Effort Normal, Non-Labored 05/05/24 05:37 Blood Pressure 139/78 05/05/24 05:34 Blood Pressure Position Sitting 05/05/24 05:34 Pulse Oximetry 98 05/05/24 05:34 Oxygen Delivery Method Room Air 05/05/24 05:34 Oxygen Flow Rate 0 05/05/24 05:34 Pain Level 7 05/05/24 05:34 Medical Decision Making This is a very pleasant 74-year-old female with a past medical history of coronary artery disease, cholecystectomy, leukemia currently receiving chemotherapy through [facility], who presents today for evaluation of constipation. Patient states that she does not have a bowel movement in the last 3 days. She feels a very hard stool ball in her rectum. She has not been able to get it out. She admits to some mild rectal pain when trying to have b owel movement, but denies any abdominal pain otherwise. No vomiting. No recent opiate use. Physical exam demonstrates nontender abdomen, no guarding or rebound. External rectal exam demonstrates a large hemorrhoid and a small amount of stool. Patient's labs were reviewed prior to rectal exam, patient demonstrates leukopenia with a white count of 0.99, hemoglobin of 6.6, platelets of 11, and a n absolute neutrophil count of 0.2. Had discussed with patient my concern for protracted digital rectal exploration and the potential for translocation of bacteria through the bloodstream and/or bleeding. While this is likely a moot point since she has been straining significantly hard with her hard stool ball present against the rectal wall on her own, it still is important to discuss. I discussed the risks of even a minimal digital exploration with my smallest digit (and I do have small hands/fingers). Patient understands, and she consents and requests that we at least see if there is a hard stool ball. Very very carefully slowly and very gently with my smallest digit, I was able to gently feel through the anal sphincter and into the rectum there was immediately evidence of a very hard stool ball. I did nt do any further digital exploration, I did not manipulate the stool ball secondary to risk of potential complication. We will gently provide an adenoma, reach out to oncology for further recommendations for digital manipulation considering her labs, monitor closely and reassess. 7:48 AM Laboratory workup shows white count of 1.48, hemoglobin of 10, platelets of 9, absolute neutrophil count of 0.46. I did contact [facility] oncology and spoke with , and she agrees with the risk, but is also very concerned as well that if the constipation is not resolved it will cause translocation of the gut devon through that mechanism. She does recommend going ahead with the procedure, but she recommends doing this concurrently with IV antibiotics. We will administer Zosyn. Zosyn was administered and during the infusion the digital rectal exam was again performed. No blood was noted. 13 very hard stool balls were removed. After this patient was able to have a bowel movement of medium size. Repeat exam showed small retention of soft stool. We will give a repeat enema with expectant discharge. Colace will be sent to the patient's pharmacy. Patient will be transitioned to the infusion center for the remainder of her regular infusions. Patient has near complete resolution of the pain that she was feeling before. I have extensively reviewed the treatment plan and discharge instructions with the patient. I have addressed all patient concerns at this time. The patient was made aware of what symptoms to monitor for that would warrant a return to the emergency department. Discussed the plan with the patient, they demonstrate verbal understanding and agreement with our assessment and plan at this time. The documentation in this chart was dictated using [employer] dictation software. Please excuse any dictation errors. Quality:SDOH Health Related Social Needs: No Data to Display PFSH All Active Problems (Updated 05/05/24 @ 08:00 by Louie Sheffield DO) Neutropenia (Acute) Constipation (Acute) Impairment of speech discrimination (Acute) Sensorineural hearing loss, bilateral (Acute) Screening for colon cancer (Acute) Abnormal echocardiogram (Acute) CAD (coronary artery disease) (Chronic) Hypertrophic obstructive cardiomyopathy (Chronic) Chest pain (Acute) Medical History History of breast cancer Nonspecific abnormal Papanicolaou smear of cervix Ankle joint pain Personal history of COVID-19 Decreased hearing Thyroid nodule Tubular adenoma of colon Vitamin D deficiency Pacemaker Abnormal laboratory test Sinusitis, acute Left ventricular outflow tract obstruction History of non-ST elevation myocardial infarction (NSTEMI) GERD (gastroesophageal reflux disease) Thyroid mass Vertigo Pneumonia Blood glucose elevated Dyspnea Pulmonary nodule Mitral regurgitation Nonsustained paroxysmal supraventricular tachycardia Cholelithiasis breast cancer Surgical History History of ventricular septal myectomy History of coronary artery stent placement History of cardiac cath History of permanent cardiac pacemaker placement section X2 Breast, Mastectomy 2000 Family History Mother Stroke Hypertension Heart disease Father , [place] Heart disease Alcohol use disorder Social History Smoking/Tobacco Use Status: Never Smoking risk assessment performed?: Yes Alcohol Intake: current Alcohol Intake frequency: holidays/special occasions only Drug use: Never Substance use type: does not use Household members: spouse Do you feel safe at home: Yes Do you feel safe in your relationship?: Yes
[2024-05-05] MEDS: Na Phosphate Enema-Adult 133 ML BTL PR ×2 (05:56→08:06)
[2024-05-05] MEDS: PIPERACILLIN/TAZO 3.375 GM in Normal Saline 50 ML IVPB (06:44)
[2024-05-05 07:04] LABS: HCT 29.1 % (36.0-46.0); MCH 32.4 pg (27.0-33.0); MCHC 34.4 % (32.0-36.0); MCV 94 fL (80-95); MPV 11.9 fL (8.0-11.0); RBC 3.09 10^6/uL (3.93-5.22); RDW 19.7 % (11.7-14.6); RDW-SD 56.8 fL
[2024-05-05 07:09] LABS: WBC 1.48 10^3/uL (4.4-10.8)
[2024-05-05 07:21] LABS: ALT 27 U/L (14-59); AST 28 U/L (15-37); Albumin 3.6 g/dL (3.4-5.0); Alkaline Phosphatase 82 U/L (46-116); Anion Gap 12.2 mmol/L (3-11); BUN 19 mg/dL (7-18); Bilirubin, Total 3.31 mg/dL (0.2-1.0); CO2 23.8 mmol/L (21.0-32.0); CREATININE 0.9 mg/dL (0.55-1.02); Calcium 9.4 mg/dL (8.5-10.1); Chloride 107 mmol/L (98-107); Estimated GFR 66.67 (mL/min/1.73m2); Glucose 186 mg/dL (74-106); Potassium 3.4 mmol/L (3.5-5.1); Sodium 143 mmol/L (136-145); Total Protein 6.5 g/dL (6.4-8.2)
[2024-05-05 07:36] LABS: Platelet Count 9 10^3/uL (130-400)
[2024-05-05 07:38] LABS: Absolute Neutrophil Count 0.46 10^3/uL (1.2-6.7)
[2024-05-05 07:39] LABS: Absolute Basophil Count 0.01 10^3/uL (0.0-0.2); Absolute Eosinophil Count 0.03 10^3/uL (0.0-0.7); Absolute Lymphocyte Count 0.75 10^3/uL (1.2-3.4); Metamyelocytes % 4; Myelocytes % 2; Other Cells % 2
[2024-05-05 07:40] LABS: Diff Comment Manual Differential; Polychromasia Present
== END 2024-05-05 08:58 | disposition home or self-care (01) ==
PROVIDERS: Emergency Provider Student in an Organized Health Care Education/Training Program; PCP Physician Assistant Medical
DX: K59.00 Constipation, unspecified (principal); D70.9 Neutropenia, unspecified; I25.10 Atherosclerotic heart disease of native coronary artery without angina pectoris; I25.2 Old myocardial infarction; Z95.5 Presence of coronary angioplasty implant and graft; Z92.21 Personal history of antineoplastic chemotherapy; Z79.82 Long term (current) use of aspirin; D46.9 Myelodysplastic syndrome, unspecified
CPT/HCPCS: 36415; 36430; 80053; 96365; 96523; 99284; P9073; 85025; 99283; J2543; P9035

== ENCOUNTER 2024-05-12 13:00 | Outpatient (RCR) | payer MEDICARE, SELFPAY ==
[2024-04-14 00:20] VITALS: BP 121/59; PULSE 68; RESP 18; TEMP 35.8
[2024-04-15 09:40] LABS: HCT 26.3 % (36.0-46.0); HGB 8.7 g/dL (11.2-15.7); MCH 34.1 pg (27.0-33.0); MCHC 33.1 % (32.0-36.0); MCV 103 fL (80-95); RBC 2.55 10^6/uL (3.93-5.22); RDW 25.5 % (11.7-14.6); RDW-SD 86.4 fL; WBC 2.09 10^3/uL (4.4-10.8)
[2024-04-15 09:57] LABS: Absolute Eosinophil Count 0.02 10^3/uL (0.0-0.7); Absolute Lymphocyte Count 1.53 10^3/uL (1.2-3.4); Absolute Monocyte Count 0.02 10^3/uL (0.1-0.8); Atypical Lymphocytes % 3 %; Bands % 3 %; Diff Comment Manual Differential; Metamyelocytes % 6; Myelocytes % 3
[2024-04-15 09:58] LABS: Anisocytosis 2+; Polychromasia Present
[2024-04-15 10:01] LABS: Absolute Neutrophil Count 0.31 10^3/uL (1.2-6.7); Platelet Count 22 10^3/uL (130-400)
[2024-04-15] MEDS: Normal Saline Flush 10 ML SYR IVP (16:15)
[2024-04-18 08:47] LABS: Abs Immature Grans 0.42 10^3/uL (0.0-0.06); HCT 26.6 % (36.0-46.0); HGB 8.8 g/dL (11.2-15.7); MCH 34.8 pg (27.0-33.0); MCHC 33.1 % (32.0-36.0); MCV 105 fL (80-95); MPV 12.8 fL (8.0-11.0); RBC 2.53 10^6/uL (3.93-5.22); RDW-SD 90.3 fL; WBC 2.04 10^3/uL (4.4-10.8)
[2024-04-18 09:31] LABS: Absolute Lymphocyte Count 1.14 10^3/uL (1.2-3.4); Absolute Neutrophil Count 0.63 10^3/uL (1.2-6.7); Bands % 4 %
[2024-04-18 09:33] LABS: Anisocytosis 2+; Diff Comment Manual Differential; Metamyelocytes % 11; Myelocytes % 2
[2024-04-18 09:34] LABS: Polychromasia Present
[2024-04-18 09:47] LABS: Platelet Count 23 10^3/uL (130-400)
[2024-04-19 13:15] LABS: HCT 28.1 % (36.0-46.0); HGB 9.2 g/dL (11.2-15.7); MCH 34.5 pg (27.0-33.0); MCHC 32.7 % (32.0-36.0); MCV 105 fL (80-95); MPV 13.3 fL (8.0-11.0); RBC 2.67 10^6/uL (3.93-5.22); RDW 26.1 % (11.7-14.6); RDW-SD 89.7 fL; WBC 2.73 10^3/uL (4.4-10.8)
[2024-04-19 13:54] LABS: Absolute Lymphocyte Count 2.07 10^3/uL (1.2-3.4); Atypical Lymphocytes % 4 %; Bands % 5 %; Metamyelocytes % 1; Platelet Count 21 10^3/uL (130-400)
[2024-04-19 13:55] LABS: Absolute Neutrophil Count 0.63 10^3/uL (1.2-6.7); Anisocytosis 2+; Diff Comment Manual Differential; Macrocytosis 2+
[2024-04-20 14:33] VITALS: BP 107/64; PULSE 89; RESP 18; TEMP 37.1; O2SAT 99
[2024-04-20 15:10] VITALS: BP 111/64; PULSE 88; RESP 18; TEMP 37.1; O2SAT 99
[2024-04-20 15:43] LABS: Platelet Count 34 10^3/uL (130-400)
[2024-04-25] MEDS: Normal Saline Flush 10 ML SYR IVP (09:09)
[2024-04-25 09:43] LABS: HGB 7.7 g/dL (11.2-15.7); MCHC 33.5 % (32.0-36.0); MCV 108 fL (80-95); MPV 10.3 fL (8.0-11.0); RBC 2.14 10^6/uL (3.93-5.22); RDW 27.1 % (11.7-14.6); RDW-SD 91.7 fL
[2024-04-25 10:03] LABS: Absolute Lymphocyte Count 1.18 10^3/uL (1.2-3.4); Absolute Monocyte Count 0.03 10^3/uL (0.1-0.8); Bands % 3 %
[2024-04-25 10:04] LABS: Anisocytosis 2+; Diff Comment Manual Differential; Macrocytosis 2+; Metamyelocytes % 2; Myelocytes % 1; Polychromasia Present
[2024-04-25 10:09] LABS: Absolute Neutrophil Count 0.42 10^3/uL (1.2-6.7); Platelet Count 21 10^3/uL (130-400); WBC 1.68 10^3/uL (4.4-10.8)
[2024-04-25 10:25] LABS: ALT 20 U/L (14-59); AST 27 U/L (15-37); Albumin 3.4 g/dL (3.4-5.0); Alkaline Phosphatase 75 U/L (46-116); Anion Gap 11.2 mmol/L (3-11); BUN 15 mg/dL (7-18); Bilirubin, Total 3.06 mg/dL (0.2-1.0); CO2 23.8 mmol/L (21.0-32.0); Calcium 8.8 mg/dL (8.5-10.1); Chloride 108 mmol/L (98-107); Estimated GFR 59.12 (mL/min/1.73m2); Glucose 217 mg/dL (74-106); Potassium 3.6 mmol/L (3.5-5.1); Sodium 143 mmol/L (136-145); Total Protein 6.2 g/dL (6.4-8.2)
[2024-04-26] MEDS: Normal Saline Flush 10 ML SYR IVP (09:26)
[2024-04-26] MEDS: diphenhydrAMINE 25 MG CAP PO (09:26)
[2024-04-26] MEDS: Acetaminophen 325 MG TAB 650 MG PO (09:26)
[2024-04-26 09:51] VITALS: BP 109/46; PULSE 77; RESP 17; TEMP 36.8; O2SAT 99
[2024-04-26 10:05] VITALS: BP 113/45; PULSE 53; RESP 17; TEMP 37; O2SAT 99
[2024-04-26 10:20] VITALS: BP 110/43; PULSE 74; RESP 18; TEMP 37.4; O2SAT 98
[2024-04-26 10:50] VITALS: BP 111/43; PULSE 74; RESP 18; TEMP 36.9; O2SAT 96
[2024-04-26 11:40] VITALS: BP 120/47; PULSE 73; RESP 17; TEMP 37.1; O2SAT 97
[2024-04-28] MEDS: Normal Saline Flush 10 ML SYR IVP ×2 (09:29→11:37)
[2024-04-28 09:49] LABS: HGB 8.3 g/dL (11.2-15.7); MCH 34.6 pg (27.0-33.0); MCHC 33.2 % (32.0-36.0); MCV 104 fL (80-95); RDW 25.1 % (11.7-14.6); RDW-SD 85.3 fL
[2024-04-28 10:04] LABS: Absolute Eosinophil Count 0.01 10^3/uL (0.0-0.7); Absolute Lymphocyte Count 0.74 10^3/uL (1.2-3.4); Absolute Monocyte Count 0.04 10^3/uL (0.1-0.8); Atypical Lymphocytes % 3 %; Diff Comment Manual Differential; Metamyelocytes % 4; Myelocytes % 1
[2024-04-28 10:05] LABS: Anisocytosis 2+; Polychromasia Present
[2024-04-28 10:07] LABS: Platelet Count 13 10^3/uL (130-400); WBC 1.28 10^3/uL (4.4-10.8)
[2024-04-28 10:08] LABS: Absolute Neutrophil Count 0.42 10^3/uL (1.2-6.7)
[2024-04-28 13:01] VITALS: BP 114/49; PULSE 72; RESP 17; TEMP 35.9; O2SAT 98
[2024-04-28 13:25] VITALS: BP 117/68; PULSE 97; RESP 17; TEMP 36.1; O2SAT 97
[2024-05-02] VITALS (12 sets, daily range): BP systolic 105–118; BP diastolic 50–69; PULSE 74–82; RESP 17–20; TEMP 36.2–37.4; O2SAT 96–100
[2024-05-02 09:25] LABS: Abs Immature Grans 0.06 10^3/uL (0.0-0.06); MCH 34.2 pg (27.0-33.0); MCHC 32.7 % (32.0-36.0); MCV 105 fL (80-95); MPV 13.2 fL (8.0-11.0); RBC 1.93 10^6/uL (3.93-5.22); RDW 23.1 % (11.7-14.6); RDW-SD 81.9 fL
[2024-05-02 09:45] LABS: Absolute Lymphocyte Count 0.75 10^3/uL (1.2-3.4); Absolute Monocyte Count 0.01 10^3/uL (0.1-0.8); Myelocytes % 1; Other Cells % 2
[2024-05-02 09:46] LABS: Anisocytosis 2+; Diff Comment Manual Differential; Polychromasia Present
[2024-05-02 09:51] LABS: WBC 0.99 10^3/uL (4.4-10.8)
[2024-05-02 09:52] LABS: HCT 20.2 % (36.0-46.0); HGB 6.6 g/dL (11.2-15.7); Platelet Count 11 10^3/uL (130-400)
[2024-05-02] MEDS: Acetaminophen 325 MG TAB 650 MG PO (09:56)
[2024-05-02] MEDS: diphenhydrAMINE 25 MG CAP PO (09:56)
[2024-05-02] MEDS: Normal Saline Flush 10 ML SYR IVP (16:29)
[2024-05-05] MEDS: diphenhydrAMINE 25 MG CAP PO (12:00)
[2024-05-05] MEDS: Acetaminophen 325 MG TAB 650 MG PO (12:00)
[2024-05-05 12:20] VITALS: BP 114/65; PULSE 101; RESP 17; TEMP 36; O2SAT 97
[2024-05-05 12:40] VITALS: BP 122/71; PULSE 97; RESP 17; TEMP 36; O2SAT 97
[2024-05-05] MEDS: Normal Saline Flush 10 ML SYR IVP (13:12)
[2024-05-09] MEDS: Normal Saline Flush 10 ML SYR IVP (08:37)
[2024-05-09 08:40] LABS: Abs Immature Grans 0.07 10^3/uL (0.0-0.06); Absolute Lymphocyte Count 0.93 10^3/uL (1.2-3.4); Absolute Monocyte Count 0.07 10^3/uL (0.1-0.8); HCT 25.3 % (36.0-46.0); HGB 8.5 g/dL (11.2-15.7); MCH 32.6 pg (27.0-33.0); MCHC 33.6 % (32.0-36.0); MCV 97 fL (80-95); MPV 9.4 fL (8.0-11.0); Nucleated RBC 16.4 % (0.0-0.3); RBC 2.61 10^6/uL (3.93-5.22); RDW 19.3 % (11.7-14.6); RDW-SD 53.9 fL
[2024-05-09 09:00] LABS: Anisocytosis 2+; Atypical Lymphocytes % 12 %; Basophilic Stippling Present; Diff Comment Manual Differential
[2024-05-09 09:01] LABS: Polychromasia Present
[2024-05-09 09:06] LABS: WBC 1.22 10^3/uL (4.4-10.8)
[2024-05-09 09:07] LABS: Absolute Neutrophil Count 0.15 10^3/uL (1.2-6.7); Platelet Count 18 10^3/uL (130-400)
[2024-05-09] MEDS: Acetaminophen 325 MG TAB 650 MG PO (13:27)
[2024-05-09] MEDS: diphenhydrAMINE 25 MG CAP PO (13:27)
[2024-05-09 13:39] VITALS: BP 116/72; PULSE 85; RESP 17; TEMP 36; O2SAT 99
[2024-05-09 14:00] VITALS: BP 104/60; PULSE 78; RESP 17; TEMP 36; O2SAT 98
[2024-05-12] MEDS: Normal Saline Flush 10 ML SYR IVP (08:17)
[2024-05-12 08:20] LABS: Abs Immature Grans 0.14 10^3/uL (0.0-0.06); HCT 25.7 % (36.0-46.0); HGB 8.5 g/dL (11.2-15.7); MCH 32.9 pg (27.0-33.0); MCHC 33.1 % (32.0-36.0); MCV 100 fL (80-95); RBC 2.58 10^6/uL (3.93-5.22); RDW 21.2 % (11.7-14.6); RDW-SD 55.6 fL
[2024-05-12 09:11] LABS: Absolute Eosinophil Count 0.02 10^3/uL (0.0-0.7); Absolute Lymphocyte Count 1.29 10^3/uL (1.2-3.4); Absolute Monocyte Count 0.03 10^3/uL (0.1-0.8); Bands % 1 %
[2024-05-12 09:12] LABS: Anisocytosis 3+; Diff Comment Manual Differential; Metamyelocytes % 1; Myelocytes % 6
[2024-05-12 09:13] LABS: Poikilocytes 2+; Polychromasia Present
[2024-05-12 10:00] LABS: Platelet Count 13 10^3/uL (130-400); WBC 1.52 10^3/uL (4.4-10.8)
[2024-05-12 10:01] LABS: Absolute Neutrophil Count 0.06 10^3/uL (1.2-6.7)
[2024-05-12] MEDS: diphenhydrAMINE 25 MG CAP PO (12:57)
[2024-05-12] MEDS: Acetaminophen 325 MG TAB 650 MG PO (12:57)
[2024-05-12 13:07] VITALS: BP 114/72; PULSE 80; RESP 16; TEMP 35; O2SAT 100
[2024-05-12 13:25] VITALS: BP 102/68; PULSE 78; RESP 18; TEMP 35.7; O2SAT 100
== END 2024-05-14 23:59 | disposition home or self-care (01) ==
LOC: INF 13:00
PROVIDERS: Nurse Practitioner Adult Health; PCP Physician Assistant Medical; Visit Provider Internal Medicine Hematology & Oncology
DX: D46.9 Myelodysplastic syndrome, unspecified (principal)
CPT/HCPCS: 36415; 36430; 36591; 80053; 86850; 86900; 86901; 86920; 86945; 96523; P9073; 85025; 85049; P9016; P9035

== ENCOUNTER 2024-05-19 02:48 | Outpatient (RCR) | payer MEDICARE, SELFPAY ==
[2024-05-19 08:14] LABS: Abs Immature Grans 0.17 10^3/uL (0.0-0.06); HCT 24.8 % (36.0-46.0); HGB 8.3 g/dL (11.2-15.7); Immature Grans % 8.7 %; MCH 34.2 pg (27.0-33.0); MCHC 33.5 % (32.0-36.0); MCV 102 fL (80-95); RBC 2.43 10^6/uL (3.93-5.22); RDW 24.9 % (11.7-14.6); RDW-SD 79.5 fL
[2024-05-19 09:03] LABS: Absolute Eosinophil Count 0.06 10^3/uL (0.0-0.7); Absolute Lymphocyte Count 1.63 10^3/uL (1.2-3.4); Absolute Monocyte Count 0.08 10^3/uL (0.1-0.8); Atypical Lymphocytes % 3 %
[2024-05-19 09:09] LABS: Absolute Neutrophil Count 0.08 10^3/uL (1.2-6.7); Platelet Count 14 10^3/uL (130-400)
[2024-05-19 09:10] LABS: WBC 1.96 10^3/uL (4.4-10.8)
== END 2024-06-13 23:59 | disposition home or self-care (01) ==
LOC: INF 02:48
PROVIDERS: PCP Physician Assistant Medical; Visit Provider Internal Medicine Hematology & Oncology
DX: D46.9 Myelodysplastic syndrome, unspecified (principal)
CPT/HCPCS: 36430; 36591; 85025

== ENCOUNTER 2024-06-13 02:38 | Outpatient (RCR) | payer MEDICARE, SELFPAY ==
[2024-05-15 00:27] VITALS: BP 121/59; PULSE 68; RESP 18; TEMP 35.8
[2024-05-17] MEDS: Normal Saline Flush 10 ML SYR IVP (08:11)
[2024-05-17 08:26] LABS: HCT 25.3 % (36.0-46.0); HGB 8.7 g/dL (11.2-15.7); MCH 34.3 pg (27.0-33.0); MCHC 34.4 % (32.0-36.0); MCV 100 fL (80-95); RBC 2.54 10^6/uL (3.93-5.22); RDW 24.1 % (11.7-14.6); RDW-SD 74.4 fL
[2024-05-17 09:10] LABS: Absolute Monocyte Count 0.02 10^3/uL (0.1-0.8); Bands % 2 %
[2024-05-17 09:17] LABS: Absolute Neutrophil Count 0.18 10^3/uL (1.2-6.7); Platelet Count 11 10^3/uL (130-400); WBC 1.79 10^3/uL (4.4-10.8)
[2024-05-17] MEDS: diphenhydrAMINE 25 MG CAP PO (13:07)
[2024-05-17] MEDS: Acetaminophen 325 MG TAB 650 MG PO (13:09)
[2024-05-17 13:30] VITALS: BP 126/73; PULSE 89; RESP 17; TEMP 36.4; O2SAT 100
[2024-05-17 13:41] VITALS: BP 107/49; PULSE 85; RESP 18; TEMP 36.4; O2SAT 100
[2024-05-19] MEDS: Normal Saline Flush 10 ML SYR IVP (12:53)
[2024-05-19] MEDS: diphenhydrAMINE 25 MG CAP PO (13:14)
[2024-05-19] MEDS: Acetaminophen 325 MG TAB 650 MG PO (13:15)
[2024-05-19 13:27] VITALS: BP 112/70; PULSE 83; RESP 18; TEMP 37.6; O2SAT 100
[2024-05-19 13:46] VITALS: BP 105/46; PULSE 77; RESP 18; TEMP 37.3; O2SAT 100
[2024-05-23] MEDS: Normal Saline Flush 10 ML SYR IVP (08:00)
[2024-05-23 08:20] LABS: HCT 22.4 % (36.0-46.0); HGB 7.4 g/dL (11.2-15.7); MCH 34.6 pg (27.0-33.0); MCV 105 fL (80-95); MPV 12.4 fL (8.0-11.0); RBC 2.14 10^6/uL (3.93-5.22); RDW 25.7 % (11.7-14.6); RDW-SD 86.8 fL
[2024-05-23 08:39] LABS: ALT 19 U/L (14-59); AST 23 U/L (15-37); Albumin 3.2 g/dL (3.4-5.0); Alkaline Phosphatase 91 U/L (46-116); Anion Gap 12.5 mmol/L (3-11); BUN 18 mg/dL (7-18); Bilirubin, Total 3.48 mg/dL (0.2-1.0); CO2 19.5 mmol/L (21.0-32.0); CREATININE 1.1 mg/dL (0.55-1.02); Calcium 8.6 mg/dL (8.5-10.1); Chloride 105 mmol/L (98-107); Glucose 236 mg/dL (74-106); Potassium 3.3 mmol/L (3.5-5.1); Sodium 137 mmol/L (136-145); Total Protein 5.8 g/dL (6.4-8.2)
[2024-05-23 08:47] LABS: Bands % 2 %
[2024-05-23 08:48] LABS: Absolute Lymphocyte Count 1.04 10^3/uL (1.2-3.4); Absolute Monocyte Count 0.03 10^3/uL (0.1-0.8); Anisocytosis 2+; Diff Comment Manual Differential; Metamyelocytes % 3
[2024-05-23 08:50] LABS: WBC 1.38 10^3/uL (4.4-10.8)
[2024-05-23 08:51] LABS: Absolute Neutrophil Count 0.28 10^3/uL (1.2-6.7); Platelet Count 16 10^3/uL (130-400)
[2024-05-23 09:53] VITALS: BP 101/50; PULSE 79; RESP 18; TEMP 36.4; O2SAT 99
[2024-05-23 10:08] VITALS: BP 103/65; PULSE 76; RESP 18; TEMP 36.4; O2SAT 100
[2024-05-23 10:38] VITALS: BP 100/66; PULSE 77; RESP 18; TEMP 36.4; O2SAT 100
[2024-05-23 11:16] VITALS: BP 107/68; PULSE 77; RESP 18; TEMP 36.4; O2SAT 99
[2024-05-23 12:15] VITALS: BP 105/62; PULSE 74; RESP 18; TEMP 36.9; O2SAT 99
[2024-05-23 13:05] VITALS: BP 111/67; PULSE 76; RESP 18; TEMP 36.9; O2SAT 99
[2024-05-26] MEDS: Normal Saline Flush 10 ML SYR IVP (09:02)
[2024-05-26 13:05] LABS: HCT 27.1 % (36.0-46.0); HGB 9.3 g/dL (11.2-15.7); MCH 33.2 pg (27.0-33.0); MCHC 34.3 % (32.0-36.0); MCV 97 fL (80-95); RDW 21.6 % (11.7-14.6); RDW-SD 67.2 fL; WBC 1.36 10^3/uL (4.4-10.8)
[2024-05-26 13:07] LABS: Absolute Lymphocyte Count 1.06 10^3/uL (1.2-3.4); Absolute Monocyte Count 0.03 10^3/uL (0.1-0.8); Absolute Neutrophil Count 0.26 10^3/uL (1.2-6.7)
[2024-05-26 13:09] LABS: Anisocytosis 2+; Diff Comment Manual Differential; Metamyelocytes % 1
[2024-05-26 13:10] LABS: Platelet Count 13 10^3/uL (130-400)
[2024-05-26] MEDS: diphenhydrAMINE 25 MG CAP PO (14:21)
[2024-05-26] MEDS: Acetaminophen 325 MG TAB 650 MG PO (14:21)
[2024-05-26 14:39] VITALS: BP 116/72; PULSE 79; RESP 18; TEMP 36.6; O2SAT 98
[2024-05-26 15:01] VITALS: BP 106/64; PULSE 72; RESP 18; TEMP 36.2; O2SAT 100
[2024-05-30] VITALS (7 sets, daily range): BP systolic 105–122; BP diastolic 50–78; PULSE 78–89; RESP 17; TEMP 35.8–36.4; O2SAT 98–100
[2024-05-30] MEDS: Normal Saline Flush 10 ML SYR IVP (07:36)
[2024-05-30 08:03] LABS: Abs Immature Grans 0.04 10^3/uL (0.0-0.06); Absolute Monocyte Count 0.02 10^3/uL (0.1-0.8); HCT 22.3 % (36.0-46.0); HGB 7.6 g/dL (11.2-15.7); MCH 32.9 pg (27.0-33.0); MCHC 34.1 % (32.0-36.0); MCV 97 fL (80-95); RBC 2.31 10^6/uL (3.93-5.22); RDW 20.3 % (11.7-14.6)
[2024-05-30 08:36] LABS: Absolute Lymphocyte Count 0.77 10^3/uL (1.2-3.4)
[2024-05-30 08:37] LABS: Anisocytosis 2+; Diff Comment Manual Differential; Hypochromasia 2+; Myelocytes % 2
[2024-05-30] MEDS: Acetaminophen 325 MG TAB 650 MG PO (08:37)
[2024-05-30] MEDS: diphenhydrAMINE 25 MG CAP PO (08:37)
[2024-05-30 08:44] LABS: WBC 0.86 10^3/uL (4.4-10.8)
[2024-05-30 08:45] LABS: Absolute Neutrophil Count 0.05 10^3/uL (1.2-6.7); Platelet Count 9 10^3/uL (130-400)
[2024-06-02 08:59] LABS: Abs Immature Grans 0.05 10^3/uL (0.0-0.06); Absolute Monocyte Count 0.03 10^3/uL (0.1-0.8); HGB 8.2 g/dL (11.2-15.7); MCH 31.5 pg (27.0-33.0); MCHC 34.2 % (32.0-36.0); MCV 92 fL (80-95); RDW 20.7 % (11.7-14.6); RDW-SD 57.3 fL
[2024-06-02 09:41] LABS: Metamyelocytes % 2; Myelocytes % 2
[2024-06-02 09:42] LABS: Anisocytosis 2+; Diff Comment Manual Differential; Hypochromasia 2+
[2024-06-02 09:44] LABS: WBC 0.81 10^3/uL (4.4-10.8)
[2024-06-02 09:45] LABS: Platelet Count 7 10^3/uL (130-400)
[2024-06-02 09:46] LABS: Absolute Neutrophil Count 0.15 10^3/uL (1.2-6.7)
[2024-06-02 09:57] LABS: ALT 21 U/L (14-59); AST 20 U/L (15-37); Albumin 3.2 g/dL (3.4-5.0); Alkaline Phosphatase 75 U/L (46-116); Anion Gap 12.7 mmol/L (3-11); BUN 18 mg/dL (7-18); Bilirubin, Total 2.59 mg/dL (0.2-1.0); CO2 21.3 mmol/L (21.0-32.0); CREATININE 1.1 mg/dL (0.55-1.02); Calcium 8.9 mg/dL (8.5-10.1); Chloride 106 mmol/L (98-107); Glucose 216 mg/dL (74-106); Potassium 3.4 mmol/L (3.5-5.1); Sodium 140 mmol/L (136-145); Total Protein 5.7 g/dL (6.4-8.2)
[2024-06-02 13:26] VITALS: BP 104/54; PULSE 86; RESP 17; TEMP 36.1; O2SAT 97
[2024-06-02 14:02] VITALS: BP 96/59; PULSE 81; TEMP 37.1; O2SAT 81
[2024-06-06] VITALS (8 sets, daily range): BP systolic 105–118; BP diastolic 53–72; PULSE 83–94; RESP 16–18; TEMP 36.9–37.1; O2SAT 94–100
[2024-06-06 08:18] LABS: Abs Immature Grans 0.05 10^3/uL (0.0-0.06); HCT 23.7 % (36.0-46.0); HGB 7.8 g/dL (11.2-15.7); MCH 31.3 pg (27.0-33.0); MCHC 32.9 % (32.0-36.0); MCV 95 fL (80-95); RBC 2.49 10^6/uL (3.93-5.22); RDW 21.7 % (11.7-14.6)
[2024-06-06 08:41] LABS: Absolute Lymphocyte Count 0.79 10^3/uL (1.2-3.4); Absolute Monocyte Count 0.01 10^3/uL (0.1-0.8); Metamyelocytes % 3; Myelocytes % 2
[2024-06-06 08:43] LABS: Absolute Neutrophil Count 0.15 10^3/uL (1.2-6.7); Anisocytosis 2+; Diff Comment Manual Differential; Platelet Count 4 10^3/uL (130-400)
[2024-06-06] MEDS: diphenhydrAMINE 25 MG CAP PO (09:36)
[2024-06-06] MEDS: Normal Saline Flush 10 ML SYR IVP ×2 (09:37→13:17)
[2024-06-06] MEDS: Acetaminophen 325 MG TAB 650 MG PO (09:37)
[2024-06-09 07:48] VITALS: BP 107/66; PULSE 87; RESP 16; TEMP 36.7; O2SAT 99
[2024-06-09 08:02] LABS: HCT 27.6 % (36.0-46.0); HGB 9.3 g/dL (11.2-15.7); MCH 30.6 pg (27.0-33.0); MCHC 33.7 % (32.0-36.0); MCV 91 fL (80-95); RBC 3.04 10^6/uL (3.93-5.22); RDW 21.2 % (11.7-14.6)
[2024-06-09 08:38] LABS: Absolute Lymphocyte Count 1.04 10^3/uL (1.2-3.4); Absolute Monocyte Count 0.05 10^3/uL (0.1-0.8); Metamyelocytes % 2; Myelocytes % 1
[2024-06-09 08:40] LABS: Anisocytosis 2+; Diff Comment Manual Differential
[2024-06-09 08:41] LABS: Howell-Jolly Bodies 1+; Ovalocytes 2+; Polychromasia Present
[2024-06-09 08:45] LABS: Absolute Neutrophil Count 0.01 10^3/uL (1.2-6.7); Platelet Count 5 10^3/uL (130-400); WBC 1.13 10^3/uL (4.4-10.8)
[2024-06-09] MEDS: diphenhydrAMINE 25 MG CAP PO (13:06)
[2024-06-09] MEDS: Acetaminophen 325 MG TAB 650 MG PO (13:06)
[2024-06-09 13:33] VITALS: BP 107/66; PULSE 87; RESP 16; TEMP 36.7; O2SAT 99
[2024-06-09 14:05] VITALS: BP 107/65; PULSE 82; RESP 16; TEMP 37.1; O2SAT 100
[2024-06-09] MEDS: Normal Saline Flush 10 ML SYR IVP (14:17)
[2024-06-13 13:26] VITALS: BP 111/67; PULSE 72; RESP 18; TEMP 37; O2SAT 99
[2024-06-13 13:41] VITALS: BP 105/64; PULSE 89; RESP 18; TEMP 37.2; O2SAT 98
[2024-06-13 13:49] VITALS: BP 104/66; PULSE 88; RESP 18; TEMP 37; O2SAT 98
== END 2024-06-13 23:59 | disposition home or self-care (01) ==
LOC: INF 02:38
PROVIDERS: PCP Physician Assistant Medical; Visit Provider Internal Medicine Hematology & Oncology
DX: D46.9 Myelodysplastic syndrome, unspecified (principal); Z45.2 Encounter for adjustment and management of vascular access device
CPT/HCPCS: 36430; 36591; 80053; 86850; 86900; 86901; 86920; 86945; 96365; 96366; P9073; 85025; P9016; P9035

== ENCOUNTER 2024-06-27 01:33 | Outpatient (CLI) | payer MEDICARE, SELFPAY ==
--- NOTE | 2024-06-27 | DI.MAMMO_ITS ---
Exam(s) MG MAMMO SCREENING 60 MIN DUR EXAM: MG MAMMO SCREENING 60 MIN DUR CLINICAL HISTORY: SCREENING, Z12.31,PERSONAL H/O BREAST CA,YEARLY TECHNIQUE: Bilateral full field digital CC and MLO mammographic images were obtained with 3D tomosyn thesis and utilizing computer aided detection (CAD). COMPARISON: Available for comparison. FINDINGS: The patient is status post left mastectomy. The patient has a right breast implant which appears unc hanged. Masses/Architectural Distortion: None seen. Microcalcifications: No suspicious pleomorphic-type are seen. Skin Thickening/Nipple Retraction: None. IMPRESSION: 1. No significant interval change with no specific features of malignancy noted. 2. Unless there is more urgent need, screening mammography is recommended, as per [place] [employer] guidelines. 3. Findings were discussed with the patient on the date of the examination. BI-RADS Category 1 - Negative Breast Density - Category B - Scattered areas of fibroglandular density Breast density category C or D implies that the patient has dense breast tissue. Dense breast tissue is very common and is not abnormal but dense breast tissue can make it harder to find cancer on a ma mmogram. Also, dense breast tissue may increase their breast cancer risk. This information about the result of the mammogram report was provided to the patient to raise their awareness. Use this report when you speak with the patient about their risks for breast cancer, which includes their family hist ory. At that time, you may recommend for more screening tests (Ultrasound or MRI) as they might be us eful based on their risk. A negative radiographic report should not delay biopsy if a dominant or clinically suspicious mass is present. Up to ten percent of cancers are not identified on mammography. A negative report may reinforce clinical impression. Adenosis and dense breasts may obscure an underlying neoplasm. False positive reports average 6 to 10%. Patient will receive a letter notifying them of these results.
== END 2024-06-27 01:53 ==
PROVIDERS: PCP Physician Assistant Medical; Visit Provider Internal Medicine Hematology & Oncology
DX: Z12.31 Encounter for screening mammogram for malignant neoplasm of breast (principal); Z85.3 Personal history of malignant neoplasm of breast
CPT/HCPCS: 77063; 77067

== ENCOUNTER 2024-07-05 01:41 | Outpatient (RCR) | payer MEDICARE, SELFPAY ==
[2024-06-13 08:35] LABS: Abs Immature Grans 0.03 10^3/uL (0.0-0.06); HCT 25.3 % (36.0-46.0); HGB 8.2 g/dL (11.2-15.7); MCH 30.6 pg (27.0-33.0); MCHC 32.4 % (32.0-36.0); MCV 94 fL (80-95); MPV 12.4 fL (8.0-11.0); RBC 2.68 10^6/uL (3.93-5.22); RDW 22.1 % (11.7-14.6); RDW-SD 54.7 fL
[2024-06-13 09:04] LABS: Absolute Lymphocyte Count 0.77 10^3/uL (1.2-3.4)
[2024-06-13 09:05] LABS: Anisocytosis 2+; Diff Comment Manual Differential
[2024-06-13 09:06] LABS: Absolute Neutrophil Count 0.14 10^3/uL (1.2-6.7); Platelet Count 10 10^3/uL (130-400)
[2024-06-14 00:13] VITALS: BP 121/59; PULSE 68; RESP 18; TEMP 35.8
[2024-06-15] VITALS (8 sets, daily range): BP systolic 104–129; BP diastolic 51–79; PULSE 71–75; RESP 16; TEMP 36.4–36.8; O2SAT 99–100
[2024-06-15] MEDS: Normal Saline Flush 10 ML SYR IVP ×2 (08:57→14:13)
[2024-06-15 09:07] LABS: Abs Immature Grans 0.06 10^3/uL (0.0-0.06); HCT 24.2 % (36.0-46.0); HGB 7.9 g/dL (11.2-15.7); Immature Grans % 5.1 %; MCH 31.1 pg (27.0-33.0); MCHC 32.6 % (32.0-36.0); MCV 95 fL (80-95); Nucleated RBC 21.2 % (0.0-0.3); RBC 2.54 10^6/uL (3.93-5.22); RDW-SD 69.4 fL
[2024-06-15 09:35] LABS: Absolute Lymphocyte Count 1.07 10^3/uL (1.2-3.4); Atypical Lymphocytes % 7 %
[2024-06-15 09:36] LABS: Absolute Eosinophil Count 0.02 10^3/uL (0.0-0.7); Absolute Monocyte Count 0.04 10^3/uL (0.1-0.8)
[2024-06-15 09:56] LABS: Absolute Neutrophil Count 0.04 10^3/uL (1.2-6.7); Anisocytosis 1+; Platelet Count 11 10^3/uL (130-400); WBC 1.18 10^3/uL (4.4-10.8)
[2024-06-17] MEDS: Normal Saline Flush 10 ML SYR IVP (09:40)
[2024-06-17 09:50] LABS: Abs Immature Grans 0.03 10^3/uL (0.0-0.06); HCT 27.2 % (36.0-46.0); HGB 9.2 g/dL (11.2-15.7); MCH 31.2 pg (27.0-33.0); MCHC 33.8 % (32.0-36.0); MCV 92 fL (80-95); Nucleated RBC 15.5 % (0.0-0.3); RBC 2.95 10^6/uL (3.93-5.22); RDW 21.2 % (11.7-14.6); RDW-SD 53.4 fL
[2024-06-17 10:10] LABS: Absolute Eosinophil Count 0.01 10^3/uL (0.0-0.7); Absolute Lymphocyte Count 0.83 10^3/uL (1.2-3.4); Absolute Monocyte Count 0.03 10^3/uL (0.1-0.8); Anisocytosis 3+; Atypical Lymphocytes % 2 %; Diff Comment Manual Differential; Metamyelocytes % 1; Myelocytes % 3; Polychromasia Present
[2024-06-17 10:16] LABS: WBC 0.97 10^3/uL (4.4-10.8)
[2024-06-17 10:17] LABS: Absolute Neutrophil Count 0.06 10^3/uL (1.2-6.7); Platelet Count 11 10^3/uL (130-400)
[2024-06-17] MEDS: Acetaminophen 325 MG TAB (13:54)
[2024-06-17] MEDS: diphenhydrAMINE 25 MG CAP (13:54)
[2024-06-17 14:04] VITALS: BP 116/74; PULSE 83; RESP 17; TEMP 36.6; O2SAT 99
[2024-06-17 14:25] VITALS: BP 111/65; PULSE 80; RESP 17; TEMP 36.6; O2SAT 99
[2024-06-20] MEDS: Normal Saline Flush 10 ML SYR IVP (08:36)
[2024-06-20 08:46] LABS: HCT 27.3 % (36.0-46.0); MCH 31.1 pg (27.0-33.0); MCV 95 fL (80-95); RBC 2.89 10^6/uL (3.93-5.22); RDW 21.8 % (11.7-14.6); RDW-SD 66.9 fL
[2024-06-20 09:06] LABS: Absolute Monocyte Count 0.06 10^3/uL (0.1-0.8); Anisocytosis 2+; Diff Comment Manual Differential; Metamyelocytes % 1; Myelocytes % 1
[2024-06-20 09:07] LABS: Absolute Lymphocyte Count 0.92 10^3/uL (1.2-3.4); Atypical Lymphocytes % 4 %
[2024-06-20 09:08] LABS: Absolute Neutrophil Count 0.15 10^3/uL (1.2-6.7); Platelet Count 8 10^3/uL (130-400); WBC 1.15 10^3/uL (4.4-10.8)
[2024-06-20 13:05] VITALS: BP 113/71; PULSE 79; RESP 17; TEMP 36.7; O2SAT 100
[2024-06-20 13:45] VITALS: BP 124/76; PULSE 79; RESP 18; TEMP 36.7; O2SAT 100
[2024-06-23] MEDS: Normal Saline Flush 10 ML SYR IVP (09:40)
[2024-06-23 10:51] LABS: GGT 32 U/L (5-55); LDH 284 U/L (81-234)
[2024-06-23 10:54] LABS: Bilirubin, Direct 0.2 mg/dL (0.0-0.2)
[2024-06-23 13:43] LABS: Abs Immature Grans 0.04 10^3/uL (0.0-0.06); HCT 26.7 % (36.0-46.0); HGB 9.1 g/dL (11.2-15.7); MCH 31.5 pg (27.0-33.0); MCHC 34.1 % (32.0-36.0); MCV 92 fL (80-95); RBC 2.89 10^6/uL (3.93-5.22); RDW 21.7 % (11.7-14.6); RDW-SD 66.9 fL
[2024-06-23 13:44] LABS: WBC 1.18 10^3/uL (4.4-10.8)
[2024-06-23 13:45] LABS: Platelet Count 12 10^3/uL (130-400)
[2024-06-23 13:46] LABS: Absolute Neutrophil Count 0.11 10^3/uL (1.2-6.7); Atypical Lymphocytes % 3 %
[2024-06-23 13:47] LABS: Absolute Eosinophil Count 0.01 10^3/uL (0.0-0.7); Absolute Monocyte Count 0.05 10^3/uL (0.1-0.8); Anisocytosis 2+; Diff Comment Manual Differential; Metamyelocytes % 1
[2024-06-23 13:48] LABS: Polychromasia Present
[2024-06-23 14:12] LABS: Albumin 3.4 g/dL (3.4-5.0); BUN 14 mg/dL (7-18); Bilirubin, Total 2.86 mg/dL (0.2-1.0); Estimated GFR 58.75 (mL/min/1.73m2); Glucose 214 mg/dL (74-106); Total Protein 6.2 g/dL (6.4-8.2)
[2024-06-23 14:13] LABS: ALT 21 U/L (14-59); AST 22 U/L (15-37); Alkaline Phosphatase 101 U/L (46-116); Anion Gap 15.3 mmol/L (3-11); CO2 19.7 mmol/L (21.0-32.0); Chloride 109 mmol/L (98-107); Potassium 3.6 mmol/L (3.5-5.1); Sodium 144 mmol/L (136-145)
[2024-06-24 08:21] LABS: IgA 103 mg/dL (85-499); IgG 523 mg/dL (610-1616); IgM 30 mg/dL (35-242)
[2024-06-24 12:18] VITALS: BP 118/57; PULSE 95; RESP 17; TEMP 35.8; O2SAT 95
[2024-06-24 12:50] VITALS: BP 107/47; PULSE 83; RESP 17; TEMP 36.3; O2SAT 98
[2024-06-27] VITALS (7 sets, daily range): BP systolic 111–126; BP diastolic 57–76; PULSE 80–89; RESP 17–19; TEMP 36.2–37.4; O2SAT 97–100
[2024-06-27 08:47] LABS: Abs Immature Grans 0.07 10^3/uL (0.0-0.06); HCT 23.6 % (36.0-46.0); HGB 7.9 g/dL (11.2-15.7); MCH 32.1 pg (27.0-33.0); MCHC 33.5 % (32.0-36.0); MCV 96 fL (80-95); RBC 2.46 10^6/uL (3.93-5.22); RDW 22.2 % (11.7-14.6)
[2024-06-27 09:13] LABS: Absolute Lymphocyte Count 1.15 10^3/uL (1.2-3.4); Absolute Monocyte Count 0.04 10^3/uL (0.1-0.8); Atypical Lymphocytes % 1 %
[2024-06-27 09:16] LABS: WBC 1.35 10^3/uL (4.4-10.8)
[2024-06-27 09:17] LABS: Absolute Neutrophil Count 0.16 10^3/uL (1.2-6.7); Platelet Count 11 10^3/uL (130-400)
[2024-06-27 09:19] LABS: Anisocytosis 2+; Diff Comment Manual Differential
[2024-06-27] MEDS: Acetaminophen 325 MG TAB 650 MG PO (10:50)
[2024-06-27] MEDS: diphenhydrAMINE 25 MG CAP PO (10:50)
[2024-06-27] MEDS: Normal Saline Flush 10 ML SYR IVP (10:51)
[2024-06-30] MEDS: Normal Saline Flush 10 ML SYR IVP (07:55)
[2024-06-30 08:27] LABS: HCT 26.7 % (36.0-46.0); HGB 8.8 g/dL (11.2-15.7); MCH 30.3 pg (27.0-33.0); MCV 92 fL (80-95); RDW 21.6 % (11.7-14.6); RDW-SD 64.4 fL
[2024-06-30 08:55] LABS: Bands % 4 %
[2024-06-30 08:56] LABS: Absolute Lymphocyte Count 1.11 10^3/uL (1.2-3.4); Absolute Monocyte Count 0.08 10^3/uL (0.1-0.8); Atypical Lymphocytes % 3 %; Diff Comment Manual Differential; Metamyelocytes % 2; Myelocytes % 4; Other Cells % 0; Promyelocytes % 0
[2024-06-30 09:01] LABS: Anisocytosis 2+; Macrocytosis 1+
[2024-06-30 09:02] LABS: Poikilocytes 1+
[2024-06-30 09:05] LABS: Platelet Count 12 10^3/uL (130-400); WBC 1.35 10^3/uL (4.4-10.8)
[2024-06-30 09:06] LABS: Absolute Neutrophil Count 0.08 10^3/uL (1.2-6.7)
[2024-06-30 13:41] VITALS: BP 113/68; PULSE 83; RESP 16; TEMP 37.2; O2SAT 100
[2024-06-30 14:05] VITALS: BP 103/60; PULSE 80; RESP 17; TEMP 37.3; O2SAT 100
[2024-07-04 08:28] LABS: Abs Immature Grans 0.63 10^3/uL (0.0-0.06); HCT 25.4 % (36.0-46.0); HGB 8.3 g/dL (11.2-15.7); MCH 31.4 pg (27.0-33.0); MCHC 32.7 % (32.0-36.0); MCV 96 fL (80-95); RBC 2.64 10^6/uL (3.93-5.22); RDW 23.7 % (11.7-14.6); RDW-SD 75.7 fL; WBC 2.27 10^3/uL (4.4-10.8)
[2024-07-04 09:07] LABS: Absolute Lymphocyte Count 1.61 10^3/uL (1.2-3.4); Absolute Monocyte Count 0.09 10^3/uL (0.1-0.8); Atypical Lymphocytes % 5 %; Bands % 2 %; Metamyelocytes % 10; Myelocytes % 8
[2024-07-04 09:08] LABS: Anisocytosis 3+; Diff Comment Manual Differential; Polychromasia Present
[2024-07-04 09:45] LABS: Absolute Neutrophil Count 0.16 10^3/uL (1.2-6.7); Platelet Count 13 10^3/uL (130-400)
[2024-07-05 07:36] VITALS: BP 122/52; PULSE 88; RESP 18; TEMP 36.8; O2SAT 98
[2024-07-05 07:50] VITALS: BP 123/75; PULSE 82; RESP 18; TEMP 36.9; O2SAT 99
== END 2024-07-14 23:59 | disposition home or self-care (01) ==
LOC: INF 01:41
PROVIDERS: Internal Medicine Hematology & Oncology; PCP Physician Assistant Medical; Visit Provider Internal Medicine Hematology & Oncology
DX: D46.9 Myelodysplastic syndrome, unspecified (principal)
CPT/HCPCS: 36430; 36591; 80053; 82784; 86850; 86900; 86901; 86920; 86945; 96523; P9073; 82248; 82977; 83615; 85025; P9016; P9035

== ENCOUNTER 2024-12-09 03:22 | Outpatient (RCR) | payer MEDICARE, SELFPAY ==
[2024-11-25 08:03] LABS: Abs Immature Grans 0.02 10^3/uL (0.0-0.06); Absolute Basophil Count 0.01 10^3/uL (0.0-0.2); Absolute Eosinophil Count 0.05 10^3/uL (0.0-0.7); Absolute Lymphocyte Count 1.03 10^3/uL (1.2-3.4); Absolute Monocyte Count 0.49 10^3/uL (0.1-0.8); Basophils % 0.2 %; Eosinophils % 0.9 %; HCT 32.8 % (36.0-46.0); HGB 11.8 g/dL (11.2-15.7); Immature Grans % 0.4 %; Lymphocytes % 19.4 %; MCH 38.9 pg (27.0-33.0); MCV 108 fL (80-95); MPV 8.9 fL (8.0-11.0); Monocytes % 9.2 %; Neutrophils % 69.9 %; Platelet Count 131 10^3/uL (130-400); RBC 3.03 10^6/uL (3.93-5.22); RDW 14.3 % (11.7-14.6); RDW-SD 56.6 fL
[2024-11-25] MEDS: Normal Saline Flush 10 ML SYR IVP (08:06)
[2024-11-25 08:18] LABS: ALT 53 U/L (14-59); AST 21 U/L (15-37); Alkaline Phosphatase 127 U/L (46-116); Anion Gap 11.4 mmol/L (3-11); BUN 36 mg/dL (7-18); Bilirubin, Total 0.6 mg/dL (0.2-1.0); CO2 20.6 mmol/L (21.0-32.0); CREATININE 1.3 mg/dL (0.55-1.02); Calcium 9.6 mg/dL (8.5-10.1); Chloride 111 mmol/L (98-107); Estimated GFR 42.88 (mL/min/1.73m2); Glucose 168 mg/dL (74-106); Magnesium 1.7 mg/dL (1.8-2.4); Potassium 4.5 mmol/L (3.5-5.1); Sodium 143 mmol/L (136-145); Total Protein 6.7 g/dL (6.4-8.2)
[2024-11-26 11:15] LABS: Tacrolimus 10.1 ng/mL (See Note)
[2024-12-09 08:15] LABS: Abs Immature Grans 0.03 10^3/uL (0.0-0.06); Absolute Basophil Count 0.01 10^3/uL (0.0-0.2); Absolute Eosinophil Count 0.06 10^3/uL (0.0-0.7); Absolute Lymphocyte Count 0.92 10^3/uL (1.2-3.4); Absolute Monocyte Count 0.43 10^3/uL (0.1-0.8); Absolute Neutrophil Count 4.08 10^3/uL (1.2-6.7); Basophils % 0.2 %; Eosinophils % 1.1 %; HCT 30.5 % (36.0-46.0); Immature Grans % 0.5 %; Lymphocytes % 16.6 %; MCH 38.6 pg (27.0-33.0); MCHC 36.1 % (32.0-36.0); MCV 107 fL (80-95); MPV 9.2 fL (8.0-11.0); Monocytes % 7.8 %; Neutrophils % 73.8 %; Platelet Count 126 10^3/uL (130-400); RBC 2.85 10^6/uL (3.93-5.22); RDW 13.7 % (11.7-14.6); RDW-SD 51.7 fL; WBC 5.53 10^3/uL (4.4-10.8)
[2024-12-09] MEDS: Normal Saline Flush 10 ML SYR IVP (08:27)
[2024-12-09 08:30] LABS: ALT 49 U/L (14-59); AST 20 U/L (15-37); Albumin 3.4 g/dL (3.4-5.0); Alkaline Phosphatase 119 U/L (46-116); Anion Gap 13.4 mmol/L (3-11); BUN 24 mg/dL (7-18); Bilirubin, Total 0.4 mg/dL (0.2-1.0); CO2 21.6 mmol/L (21.0-32.0); Chloride 113 mmol/L (98-107); Estimated GFR 58.75 (mL/min/1.73m2); Glucose 182 mg/dL (74-106); Magnesium 1.5 mg/dL (1.8-2.4); Potassium 3.3 mmol/L (3.5-5.1); Sodium 148 mmol/L (136-145); Total Protein 6.1 g/dL (6.4-8.2)
[2024-12-10 12:18] LABS: Tacrolimus 9.1 ng/mL (See Note)
== END 2024-12-12 23:59 | disposition home or self-care (01) ==
LOC: INF 03:22
PROVIDERS: PCP Physician Assistant Medical; Visit Provider Internal Medicine Hematology & Oncology
DX: Z94.81 Bone marrow transplant status (principal); D46.9 Myelodysplastic syndrome, unspecified
CPT/HCPCS: 36591; 80053; 86850; 86900; 86901; 80197; 83735; 85025

== ENCOUNTER 2024-12-23 02:25 | Emergency (ER) | payer MEDICARE, SELFPAY ==
[2024-12-23] VITALS (273 sets, daily range): BP systolic 131–194; BP diastolic 42–81; PULSE 97–122; RESP 16–20; TEMP 36.6; O2SAT 91–100
--- NOTE | 2024-12-23 02:27 | W.ED.GENAD ---
Discharge Plan Discharge Details Chief Complaint: Fall/Non TraumaCriteria Clinical Impression: Fall at home, Hyperkalemia, Left hip pain Primary Care Provider: Moy Pérez ED Provider: Jose De Jesus Myrick [place]ra Meds and New Rx's Prescriptions: No Action melatonin 5 mg capsule 5 mg PO HS PRN metoprolol succinate 100 mg tablet extended release 24 hr 50 mg PO DAILY EFFEXOR 37.5 MG tablet 37.5 mg PO DAILY esomeprazole magnesium 40 mg capsule,delayed release(DR/EC) 40 mg PO DAILY atorvastatin [Lipitor] 80 mg tablet 80 mg PO QHS mometasone [Nasonex] 50 mcg/actuation spray,non-aerosol 2 spray intranasal DAILY Rx Instructions: administer into each nostril ergocalciferol (vitamin D2) 1,250 mcg (50,000 unit) capsule 1,250 mcg PO QWEEK acetaminophen 325 mg capsule 650 mg PO ONCE PRN cholecalciferol (vitamin D3) 75 mcg (3,000 unit) tablet 75 mcg PO DAILY doxycycline monohydrate 100 mg capsule 100 mg PO DAILY ibuprofen 600 MG tablet 600 mg PO Q6H PRN PRNQty: 30 0RF aspirin [Araceli Low Dose Aspirin] 81 mg Tablet,Delayed Release (Dr/Ec) 81 mg PO DAILY calcium carbonate [Tums] 200 mg calcium (500 mg) Tablet,Chewable 1 PO TID PRN nitroglycerin 0.4 mg Tablet, Sublingual 0.4 mg sublingual [id number] PRN docusate sodium [Colace] 100 mg capsule 100 mg PO BID Qty: 60 0RF amlodipine 5 mg tablet 5 mg PO DAILY tacrolimus 1 mg capsule 1 mg PO DAILY Cresemba 186 mg capsule 186 mg PO DAILY dronabinol 5 mg capsule 5 mg PO DAILY potassium chloride 20 mEq tablet,ER particles/crystals 40 meq PO BID Patient Comments: TAKE TWO TABLETS BY MOUTH TWICE A DAY FOR 14 DAYS budesonide 3 mg capsule,delayed,extend.release 9 mg PO QAM Patient Comments: TAKE THREE CAPSULES BY MOUTH EVERY MORNING acyclovir 800 mg tablet 800 mg PO BID venlafaxine 25 mg tablet 25 mg PO TID sulfamethoxazole-trimethoprim 800-160 mg tablet 1 tab PO .COMPLEX Rx Instructions: 1 tab orally Mon/Weds/Fri; insulin lispro [Humalog KwikPen Insulin] 100 unit/mL insulin pen SUBCUT metoprolol tartrate 25 mg tablet 12.5 mg PO BID HPI General Mode of arrival: EMS. Date/Time Provider Initiated Documentation: 12/23/24 02:27. Limitations to Documentation: no limitations. Information obtained by: patient and RN notes reviewed. HPI Narrative: Patient presents to ED by ambulance with complaint of back and left hip pain status post fall earlier in the evening. Patient had a trip and fall around 10 PM after she got up to go to the bathroom. She did not strike her head and she had no loss of consciousness. Initially was having some back pain. was able to get her up and she got back to bed. She has developed worsening left sided hip pain. Continues to have some back pain. Did take Tylenol prior to calling EMS. She denies any syncope or loss of consciousness. She denies any chest pain or shortness of breath. She reports that she has actually been doing very well over the last couple of weeks. She does have history of leukemia and is followed by heme-onc. Denies any recent illness and specifically denies fever, cough, URI symptoms, GI symptoms, UTI symptoms. Related Data Home Medications ?Medication ?Instructions ?Recorded ?Confirmed Effexor 37.5 mg PO DAILY 01/04/13 12/23/24 ibuprofen 600 mg tablet 600 mg PO Q6H PRN PRN #30 tabs 11/17/15 12/23/24 melatonin 5 mg capsule 5 mg PO HS PRN 02/11/19 12/23/24 aspirin 81 mg tablet,delayed 81 mg PO DAILY 10/03/19 12/23/24 release (Araceli Low Dose Aspirin) calcium carbonate (Tums) 1 PO TID PRN 10/03/19 01/22/23 nitroglycerin 0.4 mg sublingual 0.4 mg sublingual [id number] PRN 10/03/19 12/23/24 tablet acetaminophen 325 mg capsule 650 mg PO ONCE PRN 10/16/20 12/23/24 atorvastatin 80 mg tablet (Lipitor) 80 mg PO QHS 10/16/20 12/23/24 ergocalciferol (vitamin D2) 1,250 1,250 mcg PO QWEEK 10/16/20 12/23/24 mcg (50,000 unit) capsule esomeprazole magnesium 40 mg 40 mg PO DAILY 10/16/20 12/23/24 capsule,delayed release mometasone 50 mcg/actuation nasal 2 spray intranasal DAILY 10/16/20 12/23/24 spray (Nasonex) metoprolol succinate 100 mg 50 mg PO DAILY 12/27/20 12/23/24 tablet,extended release 24 hr cholecalciferol (vitamin D3) 75 75 mcg PO DAILY 11/21/22 12/23/24 mcg (3,000 unit) tablet doxycycline monohydrate 100 mg 100 mg PO DAILY 11/21/22 12/23/24 capsule docusate sodium 100 mg capsule 100 mg PO BID #60 caps 05/05/24 12/23/24 (Colace) acyclovir 800 mg tablet 800 mg PO BID 12/23/24 12/23/24 amlodipine 5 mg tablet 5 mg PO DAILY 12/23/24 12/23/24 budesonide 3 mg 9 mg PO QAM 12/23/24 12/23/24 capsule,delayed,extended release dronabinol 5 mg capsule 5 mg PO DAILY 12/23/24 12/23/24 insulin lispro 100 unit/mL subcut 12/23/24 subcutaneous pen (Humalog KwikPen (U-100) Insulin) isavuconazonium sulfate 186 mg 186 mg PO DAILY 12/23/24 12/23/24 capsule (Cresemba) metoprolol tartrate 25 mg tablet 12.5 mg PO BID 12/23/24 12/23/24 potassium chloride 20 mEq 40 meq PO BID 12/23/24 12/23/24 tablet,extended release(part/cryst) sulfamethoxazole 800 1 tab PO .COMPLEX 12/23/24 12/23/24 mg-trimethoprim 160 mg tablet tacrolimus 1 mg capsule, 1 mg PO DAILY 12/23/24 12/23/24 immediate-release venlafaxine 25 mg tablet 25 mg PO TID 12/23/24 12/23/24 Previous Rx's ?Medication ?Instructions ?Recorded ibuprofen 600 mg tablet 600 mg PO Q6H PRN PRN #30 tabs 11/17/15 docusate sodium 100 mg capsule 100 mg PO BID #60 caps 05/05/24 (Colace) Allergies Allergy/AdvReac Type Severity Reaction Status Date / Time cortisone (Cortisone) AdvReac Severe VOMITING, Unverified 12/23/24 02:33 DIARRHEA General KYLE: 3 Exam Narrative Exam Narrative: Gen: WDWN elderly female in NAD. Not collared. VS per triage. HENT: NC/AT. Normal face. Eyes: PERRL and EOMI. Neck: Trachea midline. Non-tender c-spine. Chest: Normal breathing with clear and equal BS. Chest wall minimally tender upper anterior. Port in the L upper chest. CV: RRR w/o murmur. Good distal pulses. Abd: S/ND/NT. Back: Some low LS spine tenderness. tenderness. Neuro: A+Ox3. Normal speech and mentation. CN II-XII intact. No gross motor or sensory deficit. Ext: No deformity or tenderness. No shortening or rotation of the LLE. Marked decreased ROM of L hip and pain with attempted log rolling of L leg. Skin: Warm and dry. No laceration. Medical Decision Making Patient presenting to ED with a ground-level fall at home. She denies head strike or loss of consciousness. There was no syncope prior to the event, this was a trip and fall. Cervical spine is cleared clinically. Some mild anterior chest wall tenderness with a port present in the left upper chest. Will obtain PA lateral chest x-ray. Some tenderness lower lumbar spine with significant pain and tenderness over the left hip. Will obtain LS-spine x-ray as well as pelvis/left hip x-ray. She is otherwise neurovascularly intact. Abdomen is benign. Will access her port and obtain labs. Zofran and morphine ordered as she did have an episode of vomiting at home prior to EMS arrival. Denies nausea or abdominal pain currently. 04:15 - Patient's labs are all baseline except her potassium came back elevated to 7.1 with otherwise baseline kidney and electrolyte values. This was drawn off her port after access, thought to still possibly be factitious. Repeat potassium was ordered. This was drawn and she went to x-ray. Per my review of x-rays 1 view chest, LS-spine, pelvis and left hip shows no acute fracture or traumatic injury. Still having significant pain. Repeat dose of morphine had to be given before she went to x-ray. She developed nausea after the first dose of morphine and received ondansetron with little relief. She responded better to prochlorperazine. Her repeat potassium came back at 7.9. Typically her potassiums are low. In the last week reports that she has been placed on potassium twice a day. He is concerned that maybe she took extra this evening by mistake. Her EKG is sinus rhythm with left bundle branch block. We do not have previous EKG in our system that has been recent. Last one was 2019 with normal QRS. Patient will receive fluid, IV calcium chloride, IV sodium bicarb, IV dextrose and insulin with fingerstick every hour. Will also give her Lokelma. I will reach out to heme-onc at [facility] to discuss though it seems probable that this is related to oral potassium replacement given baseline kidney function and no active treatment for her leukemia. Will likely need CT scan of the pelvis and left hip given continued pain and negative x-rays per my read. 04:45 - Discussed with Dr. Ventura, heme-onc coverage at [facility]. There is nothing really going on with the patient from their standpoint other than weekly labs and transfusion or replacing electrolytes as needed. It was confirmed that patient was placed on extended oral potassium initially twice a day for the first 3 days and then down to once a day. I have spoke with the and she has continued to take the potassium twice a day. He also has confirmed that she took extra potassium tonight in addition to an extra aciclovir and extra budesonide. Therefore, this appears to be accidental overdose of potassium. She should respond to the treatment. Plan will be to manage her potassium for now. Once we know it is going down we will go ahead and get CT of the pelvis. Have discussed plan with and patient. Will discuss with hospitalist once hyperkalemia therapy completed and a repeat potassium obtained. 06:45 - Repeat potassium has come down to 7.1. Another 500 mL fluid ordered. Plan to repeat potassium 30 to 45 minutes after fluid completed. Once she is below 7 and appears to be continuing to trend down can plan pelvic CT scan to evaluate for fracture given her amount of pain and negative x-ray. Patient will be signed out to oncoming ED physician. Imaging Data Radiologic Study: Attestation: I personally reviewed and interpreted this imaging study as follows: Imaging: X-Ray My impression: see [facility] Lab Data Lab results reviewed: Yes I reviewed the patient's lab results. Lab results narrative: see [facility] ECG Data Attestation: I personally reviewed and interpreted this ECG (s) as follows: Prior ECG tracings: available for review Interpretation: see MDM/EKG Critical Care Time Critical Care Time Critical Care Time: Yes Total Critical Care Time: 45 Attestation: Upon my evaluation, this patient had a high probability of imminent or life-threatening deterioration, which required my direct attention, intervention, and personal management. I have personally provided 45 minutes of critical care time exclusive of time spent on separately billable procedures. Time includes monitoring for potential decompensation, ordering of tests and medications, review of laboratory and radiology results, discussion with consultants and documentation . Interventions were performed as documented above in procedures. PFS All Active Problems (Updated 12/23/24 @ 06:56 by Jose De Jesus Myrick MD) Left hip pain (Acute) Hyperkalemia (Acute) Fall at home (Acute) Nonspecific abnormal Papanicolaou smear of cervix (Acute) Pulmonary nodule (Acute) Impairment of speech discrimination (Acute) Sensorineural hearing loss, bilateral (Acute) Abnormal echocardiogram (Acute) Medical History Leukemia CAD (coronary artery disease) Hypertrophic obstructive cardiomyopathy History of breast cancer Decreased hearing Thyroid nodule Tubular adenoma of colon Vitamin D deficiency Pacemaker Left ventricular outflow tract obstruction History of non-ST elevation myocardial infarction (NSTEMI) GERD (gastroesophageal reflux disease) Vertigo Mitral regurgitation Nonsustained paroxysmal supraventricular tachycardia Cholelithiasis Surgical History (Updated 12/23/24 @ 02:50 by Jose De Jesus Myrick MD) S/P cholecystectomy History of ventricular septal myectomy History of coronary artery stent placement History of cardiac cath History of permanent cardiac pacemaker placement section X2 Breast, Mastectomy 1999 Family History Mother Stroke Hypertension Heart disease Father , [place] Heart disease Alcohol use disorder Social History Smoking/Tobacco Use Status: Never Smoking risk assessment performed?: Yes Alcohol Intake: current Alcohol Intake frequency: holidays/special occasions only Drug use: Never Substance use type: does not use Household members: spouse Do you feel safe at home: Yes Do you feel safe in your relationship?: Yes
--- NOTE | 2024-12-23 02:30 | RT.EKG_ITS ---
APPROVED REPORT Exam: Resting ECG Reason for Exam: ground level fall; CP Patient Location: E HR:99 bpm ECG Measurements Heart Rate 99 AXIS OR 122 P -42 QRSd 148 QRS 61 QT 389 T 210 QTc 499 Conclusion Sinus rhythm...normal P axis, V-rate 60- 99 Left bundle branch block...QRSd>120, broad/notched R ST elevation secondary to IVCD...Multiple VCG criteria I have reviewed and interpreted ECG and agree with software generated interpretation.
[2024-12-23 02:58] LABS: Absolute Basophil Count 0.02 10^3/uL (0.0-0.2); Absolute Eosinophil Count 0.02 10^3/uL (0.0-0.7); Absolute Lymphocyte Count 0.87 10^3/uL (1.2-3.4); Absolute Monocyte Count 1.09 10^3/uL (0.1-0.8); Absolute Neutrophil Count 10.26 10^3/uL (1.2-6.7); Basophils % 0.2 %; Eosinophils % 0.2 %; HCT 33.3 % (36.0-46.0); HGB 12.3 g/dL (11.2-15.7); Immature Grans % 0.8 %; MCH 40.6 pg (27.0-33.0); MCHC 36.9 % (32.0-36.0); MCV 110 fL (80-95); MPV 9.3 fL (8.0-11.0); Monocytes % 8.8 %; Platelet Count 131 10^3/uL (130-400); RBC 3.03 10^6/uL (3.93-5.22); RDW 15.1 % (11.7-14.6); RDW-SD 59.7 fL; WBC 12.36 10^3/uL (4.4-10.8)
[2024-12-23] MEDS: Ondansetron 4 MG/2 ML VIAL IVP (03:06)
[2024-12-23] MEDS: MORPHine 4 MG/ML SYR IVP ×4 (03:07→10:54)
[2024-12-23 03:11] LABS: Diff Comment RBC Morph Reviewed
[2024-12-23 03:12] LABS: Macrocytosis 1+
[2024-12-23 03:14] LABS: ALT 92 U/L (14-59); AST 40 U/L (15-37); Albumin 3.9 g/dL (3.4-5.0); Alkaline Phosphatase 139 U/L (46-116); Anion Gap 9.6 mmol/L (3-11); BUN 31 mg/dL (7-18); Bilirubin, Total 0.6 mg/dL (0.2-1.0); CO2 17.4 mmol/L (21.0-32.0); CREATININE 1.3 mg/dL (0.55-1.02); Calcium 9.8 mg/dL (8.5-10.1); Chloride 112 mmol/L (98-107); Estimated GFR 42.88 (mL/min/1.73m2); Glucose 192 mg/dL (74-106); Sodium 139 mmol/L (136-145); Total Protein 6.5 g/dL (6.4-8.2)
[2024-12-23 03:19] LABS: Potassium 7.1 mmol/L (3.5-5.1)
[2024-12-23] MEDS: Prochlorperazine 10 MG/2 ML VIAL 5 MG IVP (03:29)
[2024-12-23 03:55] LABS: Potassium 7.9 mmol/L (3.5-5.1)
--- NOTE | 2024-12-23 04:13 | DI.RAD_ITS ---
Exam(s) XR HIP LT COMPLETE AP PELVIS EXAM: XR HIP LT COMPLETE AP PELVIS CLINICAL HISTORY: ground level fall; hip pain. TECHNIQUE: 2D digital imaging was performed. Two views. COMPARISON: No exams were available for comparison FINDINGS: BONES: No acute fracture is present. No bony destructive lesion is seen. JOINTS: No dislocation present. The SI joints and pubic symphysis are intact. Mild degenerative tracey es in the hips.. SOFT TISSUE: Normal. IMPRESSION: No acute abnormality. DATA REPOSITORY: RADIATION DOSE DELIVERED:
--- NOTE | 2024-12-23 04:13 | DI.RAD_ITS ---
Exam(s) XR LUMBAR SPINE AP, LAT EXAM: XR LUMBAR SPINE AP, LAT CLINICAL HISTORY: ground level fall; lumbar spine pain. TECHNIQUE: 2D digital imaging was performed. Five views. COMPARISON: CR XR DEXA BONE DENSITY W/WO ALEXANDER from 12/20/2020 FINDINGS: Lateral views are somewhat limited due to overlying clothing. BONES: No fracture or destructive lesion. Vertebral body heights are maintained. No facet hypertro phy identified . DISKS: Mild to moderate degenerative changes ALIGNMENT: Lumbar spinal alignment is within normal limits. SOFT TISSUE: Normal. IMPRESSION: No acute abnormality. DATA REPOSITORY: RADIATION DOSE DELIVERED:
--- NOTE | 2024-12-23 04:13 | DI.RAD_ITS ---
Exam(s) XR CHEST 1V IN DI DEPT EXAM: XR CHEST 1V IN DI DEPT CLINICAL HISTORY: ground level fall; anterior CP TECHNIQUE: 2D digital imaging was performed. COMPARISON: No exams were available for comparison FINDINGS: A pacemaker and port are noted. The tip is in the right atrium. LUNGS: Clear. No pleural abnormality seen. HEART: Normal size. Coronary artery stent. AORTA: Normal diameter. Clips in the anterior mediastinum. BONES: Unremarkable for age. No rib fractures visualized. Soft tissues: Unremarkable. IMPRESSION: No acute findings. DATA REPOSITORY: RADIATION DOSE DELIVERED:
[2024-12-23] MEDS: Sodium Bicarbonate 50 MEQ/50 ML SYR IVP (04:25)
[2024-12-23] MEDS: Calcium Chloride 1000 MG/10 ML SYR IVP (04:25)
[2024-12-23] MEDS: Dextrose 50%-Water 25 GM/50 ML SYR IVP ×2 (04:26→10:23)
[2024-12-23] MEDS: Normal Saline 250 ML 500 ML IV (04:26)
[2024-12-23] MEDS: Insulin REGULAR-Human 100 UNITS/ML UNIT 10 UNITS IV (04:27)
[2024-12-23] MEDS: Sodium Zirconium Cyclosilicate 10 GM PKT PO (04:29)
--- NOTE | 2024-12-23 05:02 | NUR.NOTE ---
0418: Pt returned from Xray, repeat K+ CRITICAL. See diagnostics for details. Pt relayed to MD Myrick and this RN that he thinks pt accidentally took her Thursday potassium pills in addition to her potassium pills on . Also may have ingested 2 extra pills a day earlier. (suspects budesonide and acyclovir, but not totally sure). Hyperkalemia protocol medications ordered and administered. See eMAR for details.
--- NOTE | 2024-12-23 05:11 | DI.VRAD_ITS ---
PROCEDURE INFORMATION: Exam: XR Lumbosacral Spine Exam date and time: 12/23/2024 3:52 AM Age: 74 years old Clinical indication: Injury or trauma; Blunt trauma (contusions or hematomas); Injury date: 12/23/24; Prior surgery; Surgery date: 6+ months; Surgery type: Cholecystectomy; Ground level fall; Lumbar spine pain TECHNIQUE: Imaging protocol: Radiologic exam of the lumbosacral spine. Views: 2 or 3 views. COMPARISON: CR XR HIP LT COMPLETE AP PELVIS 12/23/2024 3:49 AM FINDINGS: Bones/joints: No acute displaced fracture or subluxation. Bones are demineralized, limiting evaluation for small nondisplaced fractures. Multilevel hypertrophic endplate changes. Lordosis maintained. Soft tissues: Unremarkable. IMPRESSION: 1. No acute displaced fracture or subluxation. 2. Demineralization limits evaluation for small nondisplaced fractures. Dictated and Authenticated by: Leopoldo Emery MD. Orderin Ramez Dela Cruz MD
--- NOTE | 2024-12-23 05:13 | DI.VRAD_ITS ---
PROCEDURE INFORMATION: Exam: XR Left Hip Exam date and time: 12/23/2024 3:49 AM Age: 74 years old Clinical indication: Injury or trauma; Blunt trauma (contusions or hematomas); Left; Injury date: 12/23/24; Ground level fall; Hip pain TECHNIQUE: Imaging protocol: Radiologic exam of the left hip. Views: 2 or 3 views hip with pelvis when performed. COMPARISON: CT ABDOMEN PELVIS W 10/10/2019 12:45 AM FINDINGS: Bones/joints: No acute fracture or subluxation. Soft tissues: Unremarkable. IMPRESSION: No acute findings. Dictated and Authenticated by: Leopoldo Emery MD. Orderin Ramez Dela Cruz MD
--- NOTE | 2024-12-23 05:19 | DI.VRAD_ITS ---
PROCEDURE INFORMATION: Exam: XR Chest Exam date and time: 12/23/2024 3:54 AM Age: 74 years old Clinical indication: Injury or trauma; Blunt trauma (contusions or hematomas); Injury date: 12/23/24; Prior surgery; Surgery date: 6+ months; Surgery type: Pacemaker. Stent. Port; Ground level fall; Anterior cp TECHNIQUE: Imaging protocol: Radiologic exam of the chest. Views: 1 view. COMPARISON: CR XR CHEST 2V PA LATERAL 02/19/2024 6:50 PM, CT of the abdomen and pelvis from October 10, 2019 FINDINGS: Tubes, catheters and devices: Transvenous pacemaker leads appear unchanged in position. Central infusion device is now present with reservoir in soft tissues of upper left chest. Catheter followed to the distal superior vena cava. Tip in right atrium. Lungs: Unremarkable. No consolidation. Pleural spaces: Unremarkable. No pleural effusion. No pneumothorax. Heart/Mediastinum: Heart normal in size. Bones/joints: Prior sternotomy. Degenerative changes. Soft tissues: Bilateral breast implants, left larger. IMPRESSION: No acute findings. Dictated and Authenticated by: Leopoldo Emery MD. Orderin Ramez Dela Cruz MD
[2024-12-23 06:24] LABS: Potassium 7.1 mmol/L (3.5-5.1)
[2024-12-23] MEDS: Normal Saline 500 ML IV ×2 (06:33→10:54)
[2024-12-23 08:08] LABS: Potassium 8.3 mmol/L (3.5-5.1)
--- NOTE | 2024-12-23 08:15 | DI.CT_ITS ---
Exam(s) CT PELVIC WO EXAM: CT PELVIC WO CLINICAL HISTORY: left hip fracture concern. TECHNIQUE: Imaging Protocol: Axial computed tomography images with coronal and sagittal reformatted images were created and reviewed. CONTRAST MATERIAL: Oral: / no COMPARISON: CT CT ABDOMEN PELVIS W from 10/10/2019 CR,XR XR HIP LT COMPLETE AP PELVIS from 12/23/2024 FINDINGS: Bones: Nondisplaced fractures of the left superior and inferior pubic rami. No additional fractures a re identified. The sacroiliac joints are not widened. Bladder: [place] distended. No gross wall thickening. Bowel: No obstruction or bowel wall thickening. Peritoneal cavity: No ascites, collection or mesenteric inflammatory response. Reproductive: Stable right ovarian cyst. Soft tissues: Unremarkable. No hematoma. IMPRESSION: Nondisplaced fractures of the left superior and inferior pubic rami. Findings called to Dr. Kat of the emergency department. RADIATION DOSE DELIVERED: 176.24mGy.cmTotal DLP DATA REPOSITORY: All CT scans at this facility are submitted to the National Radiology Data Registry (NRDR) Dose Index Registry (DIR) with the [employer] ([employer]). RADIATION OPTIMIZATION: All CT scans at this facility use at least one of these dose optimization te chniques: automated exposure control; mA and/or kV adjustment per patient size (includes targeted exa ms where dose is matched to clinical indication); or iterative reconstruction.
--- NOTE | 2024-12-23 09:30 | RT.EKG_ITS ---
APPROVED REPORT Exam: Resting ECG Reason for Exam: high k Patient Location: E HR:108 bpm ECG Measurements Heart Rate 108 AXIS MD 135 P 65 QRSd 175 QRS 74 QT 358 T 227 QTc 482 Conclusion Sinus tachycardia...rate> 99 LVH with secondary repolarization abnormality...multi-LVH criteria, abnrm ST-T Anterior infarct, old...Q >40mS, abnormal ST-T, V2-V5 ST depr, consider ischemia, inferior leads...ST <-0.10mV, II III aVF
[2024-12-23] MEDS: Metoprolol CR 50 MG TABCR PO (09:50)
[2024-12-23] MEDS: amLODIPine 5 MG TAB PO (09:50)
--- NOTE | 2024-12-23 10:14 | ED.PROG_ITS ---
Date of service: 12/23/24 Time of Service: 10:14 Medical Decision Making Care signed out by Dr. Myrick, please see his documentation regarding initial ED presentation course. Plan at signout was to follow-up on repeat potassium and obtain CT of the pelvis and hip to assess for fracture. Repeat potassium is increasing despite prior treatment, now 8.3. I spoke with the hospitalist, Dr. Brewer who feels patient may benefit from care at a dialysis capable center given increasing potassium. Repeat EKG was reviewed and interpreted by me: Please report, left bundle branch block is still present and now worse with QRS duration 175 from prior 148. Peaked T waves noted. Plan to repeat insulin, dextrose, and will give calcium gluconate. Patient has already received Lokelma. Plan to give additional IV fluid and initiate diuresis. I will give Lasix 20meq to start. 1015 -- I called and spoke with nephrology on-call at [facility] [place], Dr. Hensley, discussed ED presentation course, he agrees with diuresis. He recommends transfer. Transfer center attempting to arrange excepting team. Will assess urinary output. 1050 --patient is making urine with recent wet diaper and PureWick output. Despite this she does have 200 cc in her bladder. I will place Rajput catheter. I spoke with Dr. Alfonso, ED physician at [facility] [place], discussed ED presentation course, she will except the patient in transfer. Lab Data Lab results reviewed: Yes I reviewed the patient's lab results. Labs: Laboratory Tests Range/Units 12/23/24 12/23/24 12/23/24 02:50 03:29 05:53 WBC (4.4-10.8) 10^3/uL 12.36 H RBC (3.93-5.22) 10^6/uL 3.03 L Hgb (11.2-15.7) g/dL 12.3 Hct (36.0-46.0) % 33.3 L MCV (80-95) fL 110 H MCH (27.0-33.0) pg 40.6 H MCHC (32.0-36.0) % 36.9 H RDW (11.7-14.6) % 15.1 H Plt Count (130-400) 10^3/uL 131 MPV (8.0-11.0) fL 9.3 Immature Gran % % 0.8 Neutrophils % % 83.0 Lymphocytes % % 7.0 Monocytes % % 8.8 Eosinophils % % 0.2 Basophils % % 0.2 Nucleated RBC % (0.0-0.3) % 0.0 Absolute Neutrophils (1.2-6.7) 10^3/uL 10.26 H Absolute Lymphocytes (1.2-3.4) 10^3/uL 0.87 L Absolute Monocytes (0.1-0.8) 10^3/uL 1.09 H Absolute Eosinophils (0.0-0.7) 10^3/uL 0.02 Absolute Basophils (0.0-0.2) 10^3/uL 0.02 RBC Morphology See Below Macrocytosis 1+ Sodium (136-145) mmol/L 139 Potassium (3.5-5.1) mmol/L 7.1 H* 7.9 H* 7.1 H* Chloride (98-107) mmol/L 112 H Carbon Dioxide (21.0-32.0) mmol/L 17.4 L Anion Gap (3-11) mmol/L 9.6 BUN (7-18) mg/dL 31 H Creatinine (0.55-1.02) mg/dL 1.3 H Est GFR (CKD-EPI 2020) (mL/min/1.73m2) 42.88 Glucose (74-106) mg/dL 192 H Calcium (8.5-10.1) mg/dL 9.8 Total Bilirubin (0.2-1.0) mg/dL 0.6 AST (15-37) U/L 40 H ALT (14-59) U/L 92 H Alkaline Phosphatase (46-116) U/L 139 H Total Protein (6.4-8.2) g/dL 6.5 Albumin (3.4-5.0) g/dL 3.9 Urine Color (Yellow) Urine Clarity (Clear) Urine pH (5-8) Ur Specific [place] (1.005-1.025) Urine Protein (Neg-Trace) mg/dL Urine Ketones (Negative) mg/dL Urine Blood (Negative) Urine Nitrite (Negative) Urine Bilirubin (Negative) Urine Urobilinogen (Up to 0.2) mg/dL Ur Leukocyte Esterase (Negative) Urine Glucose (Negative) mg/dL ABO/Rh O Positive Antibody Screen NEGATIVE Range/Units 12/23/24 12/23/24 07:45 11:06 WBC (4.4-10.8) 10^3/uL RBC (3.93-5.22) 10^6/uL Hgb (11.2-15.7) g/dL Hct (36.0-46.0) % MCV (80-95) fL MCH (27.0-33.0) pg MCHC (32.0-36.0) % RDW (11.7-14.6) % Plt Count (130-400) 10^3/uL MPV (8.0-11.0) fL Immature Gran % % Neutrophils % % Lymphocytes % % Monocytes % % Eosinophils % % Basophils % % Nucleated RBC % (0.0-0.3) % Absolute Neutrophils (1.2-6.7) 10^3/uL Absolute Lymphocytes (1.2-3.4) 10^3/uL Absolute Monocytes (0.1-0.8) 10^3/uL Absolute Eosinophils (0.0-0.7) 10^3/uL Absolute Basophils (0.0-0.2) 10^3/uL RBC Morphology Macrocytosis Sodium (136-145) mmol/L Potassium (3.5-5.1) mmol/L 8.3 H* Chloride (98-107) mmol/L Carbon Dioxide (21.0-32.0) mmol/L Anion Gap (3-11) mmol/L BUN (7-18) mg/dL Creatinine (0.55-1.02) mg/dL Est GFR (CKD-EPI 2020) (mL/min/1.73m2) Glucose (74-106) mg/dL Calcium (8.5-10.1) mg/dL Total Bilirubin (0.2-1.0) mg/dL AST (15-37) U/L ALT (14-59) U/L Alkaline Phosphatase (46-116) U/L Total Protein (6.4-8.2) g/dL Albumin (3.4-5.0) g/dL Urine Color (Yellow) Yellow Urine Clarity (Clear) Clear Urine pH (5-8) 5.0 Ur Specific [place] (1.005-1.025) 1.015 Urine Protein (Neg-Trace) mg/dL Negative Urine Ketones (Negative) mg/dL Negative Urine Blood (Negative) Negative Urine Nitrite (Negative) Negative Urine Bilirubin (Negative) Negative Urine Urobilinogen (Up to 0.2) mg/dL 0.2 Ur Leukocyte Esterase (Negative) Negative Urine Glucose (Negative) mg/dL 250 H ABO/Rh Antibody Screen Quality:SDOH Health Related Social Needs: No Data to Display Critical Care Time Critical Care Time Critical Care Time: Yes Total Critical Care Time: 80 Attestation: Due to a high probability of clinically significant, life threatening deterioration, the patient required my highest level of preparedness to intervene emergently and I personally spent this critical care time directly and personally managing the patient. This critical care time included obtaining a history; examining the patient; pulse oximetry; ordering and review of studies; arranging urgent treatment with development of a management plan; evaluation of patient's response to treatment; frequent reassessment; and, discussions with other providers. This critical care time was performed to assess and manage the high probability of imminent, life-threatening deterioration that could result in multi-organ failure. It was exclusive of separately billable procedures and treating other patients and teaching time. Please see MDM section and the rest of the note for further information on pa tient assessment and treatment. Discharge Plan Disposition Patient Disposition: Transfer-Acute Inpatient Care Specific Acute In Facility: [facility] Condition: Critical Discharge Details Clinical Impression: Fall at home, Hyperkalemia, Left bundle branch block (LBBB), Closed pelvic fracture, SPENCER (acute kidney injury) Primary Care Provider: Moy Pérez ED Provider: Robert Kat Florence Meds and New Rx's Prescriptions: No Action melatonin 5 mg capsule 5 mg PO HS PRN metoprolol succinate 100 mg tablet extended release 24 hr 50 mg PO DAILY EFFEXOR 37.5 MG tablet 37.5 mg PO DAILY esomeprazole magnesium 40 mg capsule,delayed release(DR/EC) 40 mg PO DAILY atorvastatin [Lipitor] 80 mg tablet 80 mg PO QHS mometasone [Nasonex] 50 mcg/actuation spray,non-aerosol 2 spray intranasal DAILY Rx Instructions: administer into each nostril ergocalciferol (vitamin D2) 1,250 mcg (50,000 unit) capsule 1,250 mcg PO QWEEK acetaminophen 325 mg capsule 650 mg PO ONCE PRN cholecalciferol (vitamin D3) 75 mcg (3,000 unit) tablet 75 mcg PO DAILY doxycycline monohydrate 100 mg capsule 100 mg PO DAILY ibuprofen 600 MG tablet 600 mg PO Q6H PRN PRNQty: 30 0RF aspirin [Araceli Low Dose Aspirin] 81 mg Tablet,Delayed Release (Dr/Ec) 81 mg PO DAILY calcium carbonate [Tums] 200 mg calcium (500 mg) Tablet,Chewable 1 PO TID PRN nitroglycerin 0.4 mg Tablet, Sublingual 0.4 mg sublingual [id number] PRN docusate sodium [Colace] 100 mg capsule 100 mg PO BID Qty: 60 0RF amlodipine 5 mg tablet 5 mg PO DAILY tacrolimus 1 mg capsule 1 mg PO DAILY Cresemba 186 mg capsule 186 mg PO DAILY dronabinol 5 mg capsule 5 mg PO DAILY potassium chloride 20 mEq tablet,ER particles/crystals 40 meq PO BID Patient Comments: TAKE TWO TABLETS BY MOUTH TWICE A DAY FOR 14 DAYS budesonide 3 mg capsule,delayed,extend.release 9 mg PO QAM Patient Comments: TAKE THREE CAPSULES BY MOUTH EVERY MORNING acyclovir 800 mg tablet 800 mg PO BID venlafaxine 25 mg tablet 25 mg PO TID sulfamethoxazole-trimethoprim 800-160 mg tablet 1 tab PO .COMPLEX Rx Instructions: 1 tab orally Mon/Weds/Fri; insulin lispro [Humalog KwikPen Insulin] 100 unit/mL insulin pen SUBCUT metoprolol tartrate 25 mg tablet 12.5 mg PO BID Discharge Data Discharge Date/Time-TO BE ENTERED AT DEPARTURE: 12/23/24 11:53
[2024-12-23] MEDS: Insulin REGULAR-Human 100 UNITS/ML UNIT 10 UNITS SC (10:22)
[2024-12-23] MEDS: Calcium Gluconate 4.65 MEQ/10 ML VIAL 4.65 MG IVP (10:22)
[2024-12-23] MEDS: Furosemide 20 MG/2 ML VIAL IVP (10:23)
[2024-12-23 11:21] LABS: Bilirubin Negative (Negative); Blood Negative (Negative); Clarity Clear (Clear); Glucose 250 mg/dL (Negative); Ketones Negative (Negative); Leukocyte Esterase Negative (Negative); Nitrite Negative (Negative); Specific Gravity 1.015 (1.005-1.025); Urobilinogen 0.2 mg/dL (Up to 0.2)
[2024-12-23 11:49] LABS: BE (Venous) -5 mmol/L (-2-3); HCO3 (Venous) 21 mmol/L (23-28); O2 Sat (Venous) 98 %; TCO2 (Venous) 19 mmol/L (24-29); pCO2 (Venous) 37 mmHg (41-51); pH (Venous) 7.35 (7.31-7.41); pO2 (Venous) 89 mmHg
--- NOTE | 2024-12-23 11:57 | NUR.NOTE ---
Nursing Note: this RN gave report to Julieta from Miguelito Peña and RN at [facility] emergency department
[2024-12-23 12:04] LABS: Creatine Kinase 42 U/L (26-192)
== END 2024-12-23 11:53 | disposition short-term general hospital (02) ==
PROVIDERS: Emergency Medicine; Emergency Provider Student in an Organized Health Care Education/Training Program; PCP Physician Assistant Medical
DX: S32.512A Fracture of superior rim of left pubis, initial encounter for closed fracture (principal); E87.5 Hyperkalemia; I44.7 Left bundle-branch block, unspecified; N17.9 Acute kidney failure, unspecified; E11.9 Type 2 diabetes mellitus without complications; I10 Essential (primary) hypertension; I25.2 Old myocardial infarction; Z95.5 Presence of coronary angioplasty implant and graft; Z95.0 Presence of cardiac pacemaker; W06.XXXA Fall from bed, initial encounter; Y93.89 Activity, other specified; Y92.013 Bedroom of single-family (private) house as the place of occurrence of the external cause
CPT/HCPCS: 00123; 36415; 80053; 82550; 82805; 82962; 86850; 86900; 86901; 93005; 96361; 96374; 96375; 96376; 99285; 71045; 72100; 72192; 73502; 81003; 84132; 85025; 93010; J0612; J0780; J1815; J1940; J2270; J2405

== ENCOUNTER 2025-02-02 09:28 | Emergency (ER) | payer MEDICARE, SELFPAY ==
[2025-02-02] VITALS (59 sets, daily range): BP systolic 151–184; BP diastolic 51–69; PULSE 73–82; RESP 11–24; TEMP 36.2; O2SAT 95–99
--- NOTE | 2025-02-02 09:45 | DI.CT_ITS ---
Exam(s) CT HEAD WO EXAM: CT HEAD WO CLINICAL HISTORY: recent bleed, recurrent SEGOVIA. TECHNIQUE: Imaging Protocol: Axial computed tomography images with coronal and sagittal reformatted images were created and reviewed COMPARISON: No exams were available for comparison FINDINGS: Ventricles and Extra axial spaces: Normal in size and morphology for the patient's age. Hemorrhage: None. Cerebral parenchyma: No evidence of acute infarct or mass. Midline shift: None. Brainstem/Cerebellum: Normal. Calvarium: Normal. Visualized Paranasal sinuses:Clear. Mastoids: Clear. Soft Tissues: Unremarkable. ORBITS: Unremarkable. PITUITARY: Not enlarged. IMPRESSION: No acute intracranial process. RADIATION DOSE DELIVERED: 861.46mGy.cm Total DLP DATA REPOSITORY: All CT scans at this facility are submitted to the National Radiology Data Registry (NRDR) Dose Index Registry (DIR) with the [employer] ([employer]). RADIATION OPTIMIZATION: All CT scans at this facility use at least one of these dose optimization te chniques: automated exposure control; mA and/or kV adjustment per patient size (includes targeted exa ms where dose is matched to clinical indication); or iterative reconstruction.
--- NOTE | 2025-02-02 10:20 | ED.GENADUL_ITS ---
Discharge Plan Disposition Patient Disposition: Home Condition: Good Discharge Details Clinical Impression: Headache, Hypomagnesemia, Seasonal allergies, Sinus pressure Primary Care Provider: Moy Pérez ED Provider: Magda Adams Home Meds and New Rx's Prescriptions: Continued melatonin 5 mg capsule 5 mg PO HS PRN metoprolol succinate 100 mg tablet extended release 24 hr 50 mg PO DAILY EFFEXOR 37.5 MG tablet 37.5 mg PO DAILY esomeprazole magnesium 40 mg capsule,delayed release(DR/EC) 40 mg PO BID atorvastatin [Lipitor] 80 mg tablet 80 mg PO QHS acetaminophen 325 mg capsule 650 mg PO ONCE PRN cholecalciferol (vitamin D3) 75 mcg (3,000 unit) tablet 75 mcg PO DAILY ibuprofen 600 MG tablet 600 mg PO Q6H PRN PRNQty: 30 0RF nitroglycerin 0.4 mg Tablet, Sublingual 0.4 mg sublingual [id number] PRN amlodipine 5 mg tablet 5 mg PO DAILY tacrolimus 1 mg capsule 1 mg PO DAILY Cresemba 186 mg capsule 186 mg PO BID dronabinol 5 mg capsule 5 mg PO DAILY potassium chloride 20 mEq tablet,ER particles/crystals 40 meq PO PRN Patient Comments: TAKE TWO TABLETS BY MOUTH TWICE A DAY FOR 14 DAYS budesonide 3 mg capsule,delayed,extend.release 9 mg PO QAM Patient Comments: TAKE THREE CAPSULES BY MOUTH EVERY MORNING acyclovir 800 mg tablet 800 mg PO BID venlafaxine 25 mg tablet 25 mg PO TID sulfamethoxazole-trimethoprim 800-160 mg tablet 1 tab PO .COMPLEX Rx Instructions: 1 tab orally Mon/Weds/Fri; metoprolol tartrate 25 mg tablet 12.5 mg PO BID magnesium See Rx Instructions PO BID Rx Instructions: magnesium plus orally twice a day; tramadol 50 mg tablet 25 mg PO DAILY PRN famotidine 20 mg tablet 20 mg PO DAILY PRN Prevymis 480 mg tablet 480 mg PO DAILY Discharge Instructions Instructions: Headache, Adult ED, Seasonal Allergies ED, Hypomagnesemia Additional Instructions: As we discussed, your labs and imaging are reassuring here today. No evidence of recurrent bleed. Your platelet count, while slightly low, it is not as low as you have been in the past. Your magnesium was low at 1.4, we did give you an extra dose orally but I would discuss this with your care providers at [facility]. This may also prevent you from having recurrent blood work tomorrow. Please keep your appointment. Please continue with your medications as previously prescribed. Please continue to treat your seasonal allergies, you may find nasal saline is also of benefit. If you develop fever/chills, increased headache, confusion, weakness, sensation changes or other new/worsening symptom please seek care emergently once again. Otherwise, please follow-up with your primary care provider regarding allergies next week. Referrals: Moy Pérez PA [Primary Care Provider] - Discharge Data Discharge Date/Time-TO BE ENTERED AT DEPARTURE: 02/02/25 11:48 HPI General Date/Time Provider Initiated Documentation: 02/02/25 09:33 . HPI Narrative: HISTORY OF PRESENT ILLNESS A 74-year-old female presents with a headache, accompanied by her . The headache had a gradual onset since Thursday and is attributed to allergies. It is constant and worsens when lying down. She reports sinus pain around and behind her eyes but no changes in vision or weakness. She experienced mild nausea earlier today, which has been intermittent in the past. She has not had any recent illness, fevers, or shortness of breath, but she does have a cough, which is normal for her allergies. She has been managing her symptoms with Tylenol and Claritin, having initiated Claritin 3 days ago. She is on daily potassium and magnesium supplements, which were adjusted this week to include additional potassium. Patient contacted her leukemia care team at [facility] and they recommended that she come into for evaluation and given her history of intracranial hemorrhage that had occurred spontaneously in the setting of low platelets last year. She has a history of low potassium and magnesium and receives weekly blood work at [facility]. She was discharged from [facility] on 01/25/2025 after a month-long admission for a pelvic fracture from a fall, during which no head imaging was done. She has a history of MDS leukemia with decreased platelet count, and post- stem cell treatment, her platelet count dropped to single digits, requiring daily platelet transfusions. She had a minor brain bleed 3-4 months ago, which did not require surgical intervention, and multiple normal CT scans were done post-bleed. She has experienced shortness of breath on exertion for several months, occasional foot swelling, and persistent imbalance since the pelvic fracture. Prior to the fracture, she could navigate stairs without assistance and did not need a walker. She continues physical therapy and has not had any recent changes in gait. This note was created with Jake Byrne and created with patient consent. Related Data Home Medications ?Medication ?Instructions ?Recorded ?Confirmed Effexor 37.5 mg PO DAILY 01/04/13 02/02/25 ibuprofen 600 mg tablet 600 mg PO Q6H PRN PRN #30 tabs 11/17/15 02/02/25 melatonin 5 mg capsule 5 mg PO HS PRN 02/11/19 02/02/25 nitroglycerin 0.4 mg sublingual 0.4 mg sublingual [id number] PRN 10/03/19 02/02/25 tablet acetaminophen 325 mg capsule 650 mg PO ONCE PRN 10/16/20 02/02/25 atorvastatin 80 mg tablet (Lipitor) 80 mg PO QHS 10/16/20 02/02/25 esomeprazole magnesium 40 mg 40 mg PO BID 10/16/20 02/02/25 capsule,delayed release metoprolol succinate 100 mg 50 mg PO DAILY 12/27/20 02/02/25 tablet,extended release 24 hr cholecalciferol (vitamin D3) 75 75 mcg PO DAILY 11/21/22 02/02/25 mcg (3,000 unit) tablet acyclovir 800 mg tablet 800 mg PO BID 12/23/24 02/02/25 amlodipine 5 mg tablet 5 mg PO DAILY 12/23/24 02/02/25 budesonide 3 mg 9 mg PO QAM 12/23/24 02/02/25 capsule,delayed,extended release dronabinol 5 mg capsule 5 mg PO DAILY 12/23/24 02/02/25 isavuconazonium sulfate 186 mg 186 mg PO BID 12/23/24 02/02/25 capsule (Cresemba) metoprolol tartrate 25 mg tablet 12.5 mg PO BID 12/23/24 02/02/25 potassium chloride 20 mEq 40 meq PO PRN 12/23/24 02/02/25 tablet,extended release(part/cryst) sulfamethoxazole 800 1 tab PO .COMPLEX 12/23/24 02/02/25 mg-trimethoprim 160 mg tablet tacrolimus 1 mg capsule, 1 mg PO DAILY 12/23/24 02/02/25 immediate-release venlafaxine 25 mg tablet 25 mg PO TID 12/23/24 02/02/25 famotidine 20 mg tablet 20 mg PO DAILY PRN 02/02/25 02/02/25 letermovir 480 mg tablet (Prevymis) 480 mg PO DAILY 02/02/25 02/02/25 magnesium See Rx Instructions PO BID 02/02/25 02/02/25 tramadol 50 mg tablet 25 mg PO DAILY PRN 02/02/25 02/02/25 Previous Rx's ?Medication ?Instructions ?Recorded ibuprofen 600 mg tablet 600 mg PO Q6H PRN PRN #30 tabs 11/17/15 Allergies Allergy/AdvReac Type Severity Reaction Status Date / Time cortisone (Cortisone) AdvReac Severe VOMITING, Verified 02/02/25 10:39 DIARRHEA General Stated Complaint: Headache KYLE: 2 Review of Systems Constitutional Constitutional: Reports as per HPI, Denies chills, Denies fever(s), Denies frequent falls, Reports headache(s) and Denies weakness Eyes Eyes: Reports as per HPI, Denies blurry vision and Denies change in vision ENT Ears, Nose, Mouth, and Throat: Denies vertigo, Reports headache(s) and Denies neck pain Cardiovascular Cardiovascular: Reports as per HPI, Denies chest pain, Denies lightheadedness, Denies radiating jaw, neck or arm pain and Denies dyspnea Respiratory Respiratory: Reports as per HPI, Denies chest congestion, Denies cough and Denies dyspnea Gastrointestinal Gastrointestinal: Reports as per HPI, Denies abdominal pain, Denies change in bowel habits, Denies nausea and Denies vomiting Musculoskeletal Musculoskeletal: Reports as per HPI, Denies back pain, Denies myalgias, Denies muscle cramps, Denies neck pain and Denies numbness Integumentary/Breasts Skin/Breast: Reports as per HPI and Denies rash Neurologic Neurologic: Reports as per HPI, Denies abnormal movements, Denies abnormal speech, Denies confusion, Denies vertigo, Denies frequent falls, Reports headache(s), Denies localized weakness, Denies numbness, Denies sensory deficit and Denies weakness Psychiatric Psychiatric: Denies confusion Exam Const General: cooperative, healthy appearing, no acute distress, well developed and well groomed Nutritional Appearance: average body habitus and well nourished Orientation: alert, awake and oriented x3 HENMT Head: normal to inspection, no palpable skull fracture, normocephalic and atraumatic Ears: hearing grossly normal bilaterally and external ears normal General nose exam: external nose normal Mouth: oral mucosae normal and moist mucous membranes Throat: posterior oropharynx normal Eyes General: appearance normal, both eyes and all related structures Alignment and Position: alignment normal Periorbital: periorbital findings normal Eyelids: eyelids normal Sclera: sclerae normal Cornea: corneas normal Pupils: PERRL EOM: EOM intact bilaterally Neck Neck: normal visual inspection, full ROM, no lymphadenopathy and no meningeal signs Resp Effort & Inspection: normal respiratory effort, able to speak in complete sentences and no respiratory distress Auscultation: clear to auscultation bilaterally, no rales, no rhonchi and no wheezes Cardio Rate: regular rate Rhythm: regular rhythm Heart Sounds: S1 normal and S2 normal Back/Spine/Pelvis Cervical Spine: normal cervical lordosis and cervical ROM normal Skin General skin exam: no rashes or lesions noted Neuro General: patient alert, patient awake and patient oriented x3 Cranial Nerves: CN's II-XI intact bilaterally Cognition: normal cognition Speech: speech normal Gait: normal gait Motor: muscle tone normal throughout, strength 5/5 throughout, no pronator drift, no movement abnormalities noted and no fasciculations Sensory Exam: no sensory deficits noted Coordination: [id number] test normal and [id number] test normal Extrem General: normal to inspection, capillary refill normal, no pedal edema and no calf tenderness Course Vital Signs Vital signs: Vital Signs Temperature 36.2 C L 02/02/25 09:34 Pulse 82 02/02/25 09:34 Respiratory Rate 19 02/02/25 09:34 Blood Pressure 184/65 H 02/02/25 09:34 Pulse Oximetry 98 02/02/25 09:34 Temperature 36.2 C L 02/02/25 09:39 Temperature Source Temporal Artery Scan 02/02/25 09:39 Pulse 82 02/02/25 09:39 Respiratory Rate 19 02/02/25 09:39 Blood Pressure 184/65 H 02/02/25 09:39 Blood Pressure Position Sitting 02/02/25 09:39 Pulse Oximetry 98 02/02/25 09:39 Oxygen Delivery Method Room Air 02/02/25 09:39 Oxygen Flow Rate 0 02/02/25 09:39 Pain Level 5 02/02/25 09:50 Medical Decision Making HISTORY OF PRESENT ILLNESS A 74-year-old female presents with a headache, accompanied by her . She reports a gradual onset of headaches since Thursday, which she attributes to allergies. The headache is constant and worsens when lying down. She rates the pain as 5/10, with the worst being 7/10. She also reports sinus pain around and behind her eyes but no changes in vision or weakness. She experienced mild nausea earlier today, which has been intermittent in the past. She has not had any recent illness, fevers, or shortness of breath but does report a cough attributed to allergies. There have been no changes in her gait. She is managing the headache with Tylenol and Claritin, having started Claritin three days ago. She previously used oxycodone but had an adverse reaction and has tramadol at home. She undergoes weekly blood work at [facility] for low potassium and magnesium. She was discharged from [facility] on 01/25/2025 after a month-long stay for a pelvic fracture, during which no head imaging was performed. She has a history of MDS leukemia and decreased platelet count post stem cell treatment, necessitating daily platelet transfusions. She had a minor brain bleed 3-4 months ago, which did not require surgical intervention, and multiple normal CT scans post-bleed. Her symptoms have been present since February 2024. She experiences shortness of breath when climbing stairs, which has been present for several months. She also has occasional foot swelling and has felt slightly off-balance since her pelvic fracture, for which she is working with physical therapy. This note was created with [employer] and created with patient consent. ASSESSMENT AND PLAN Initial Assessment: Patient presents with headache, history of low potassium and magnesium, MDS and leukemia, and recent pelvic fracture. Differential Diagnosis: - Headache: Progressive onset, likely allergy-related. No confusion, spouse confirms baseline. Declined additional analgesics. Avoid ibuprofen due to bleeding risk. Administer tramadol for pain, on tramadol at baseline for pain. ED Course: - 1 g Tylenol taken this morning, headache subsided. - Non-contrast CT head ordered. - Lab tests ordered for chronic conditions. - Tramadol administered for pain. Final Assessment: Headache likely due to allergies, managed with Tylenol and tramadol. CT head and lab tests ordered to rule out other causes. Patient hemodynamically stable, no neurological deficits. No nuchal rigidity or systemic symptoms to suggest infectious course such as meningitis or encephalitis. Discussed LP with patient, based on exam and history, will hold off, patient agrees with this assessment. Clinical Impression: - Headache - Low magnesium, replenished orally - History of MDS and leukemia - seasonal allergies with sinus pressure Disposition: - Discharge - Follow-Up: Continue daily potassium and magnesium supplementation, adjust based on lab results. Monitor platelet count. MDM Components Evaluation: - Number of Differential Diagnoses or Management Options: Subdural bleed, meningitis, seasonal allergies, low magnesium, chronic disease - Amount and Complexity of Data Reviewed: CT head, lab tests for chronic conditions - Risk of Complication and Morbidity or Mortality: Avoid ibuprofen due to bleeding risk, monitor platelet count with [facility], continue to treat seasonal allergies, return precautions Quality:SDOH Health Related Social Needs: No Data to Display PFSH All Active Problems (Updated 02/02/25 @ 11:34 by FERMÍN Lomeli) Sinus pressure (Acute) Seasonal allergies (Acute) Hypomagnesemia (Acute) Headache (Acute) Fracture of left superior pubic ramus (Acute) Fracture of left inferior pubic ramus (Acute) Nonspecific abnormal Papanicolaou smear of cervix (Acute) Pulmonary nodule (Acute) Impairment of speech discrimination (Acute) Sensorineural hearing loss, bilateral (Acute) Abnormal echocardiogram (Acute) Medical History Leukemia CAD (coronary artery disease) Hypertrophic obstructive cardiomyopathy History of breast cancer Decreased hearing Thyroid nodule Tubular adenoma of colon Vitamin D deficiency Pacemaker Left ventricular outflow tract obstruction History of non-ST elevation myocardial infarction (NSTEMI) GERD (gastroesophageal reflux disease) Vertigo Mitral regurgitation Nonsustained paroxysmal supraventricular tachycardia Cholelithiasis Surgical History (Updated 12/23/24 @ 02:50 by Jose De Jesus Myrick MD) S/P cholecystectomy History of ventricular septal myectomy History of coronary artery stent placement History of cardiac cath History of permanent cardiac pacemaker placement section X2 Breast, Mastectomy 1999 Family History Mother Stroke Hypertension Heart disease Father , [place] Heart disease Alcohol use disorder Social History Smoking/Tobacco Use Status: Never Smoking risk assessment performed?: Yes Alcohol Intake: current Alcohol Intake frequency: holidays/special occasions only Drug use: Never Substance use type: does not use Household members: spouse Do you feel safe at home: Yes Do you feel safe in your relationship?: Yes
[2025-02-02] MEDS: Normal Saline-STERILE FIELD 0.9% 10 ML SYR (10:32)
[2025-02-02 10:36] LABS: Abs Immature Grans 0.03 10^3/uL (0.0-0.06); Absolute Basophil Count 0.01 10^3/uL (0.0-0.2); Absolute Eosinophil Count 0.08 10^3/uL (0.0-0.7); Absolute Lymphocyte Count 0.64 10^3/uL (1.2-3.4); Absolute Monocyte Count 0.51 10^3/uL (0.1-0.8); Absolute Neutrophil Count 3.32 10^3/uL (1.2-6.7); Basophils % 0.2 %; Eosinophils % 1.7 %; HCT 29.4 % (36.0-46.0); HGB 10.3 g/dL (11.2-15.7); Immature Grans % 0.7 %; Lymphocytes % 13.9 %; MCH 37.2 pg (27.0-33.0); MCV 106 fL (80-95); MPV 9.1 fL (8.0-11.0); Monocytes % 11.1 %; Neutrophils % 72.4 %; Platelet Count 107 10^3/uL (130-400); RBC 2.77 10^6/uL (3.93-5.22); RDW-SD 62.1 fL; WBC 4.59 10^3/uL (4.4-10.8)
[2025-02-02 10:41] LABS: PTT Activated 20.3 sec (20.6-30.2); Prothrombin Time 10.4 sec (9.1-11.1)
[2025-02-02 10:50] LABS: ALT 50 U/L (14-59); AST 18 U/L (15-37); Albumin 3.4 g/dL (3.4-5.0); Alkaline Phosphatase 135 U/L (46-116); BUN 18 mg/dL (7-18); Bilirubin, Total 0.5 mg/dL (0.2-1.0); CREATININE 0.9 mg/dL (0.55-1.02); Calcium 8.8 mg/dL (8.5-10.1); Chloride 110 mmol/L (98-107); Estimated GFR 66.67 (mL/min/1.73m2); Glucose 149 mg/dL (74-106); Magnesium 1.4 mg/dL (1.8-2.4); Potassium 3.6 mmol/L (3.5-5.1); Sodium 142 mmol/L (136-145); Total Protein 5.9 g/dL (6.4-8.2)
[2025-02-02] MEDS: traMADol 50 MG TAB PO (11:28)
[2025-02-02] MEDS: Magnesium Oxide 400 MG TAB 800 MG PO (11:28)
== END 2025-02-02 11:48 | disposition home or self-care (01) ==
PROVIDERS: Emergency Provider Physician Assistant; PCP Physician Assistant Medical
DX: R51.9 Headache, unspecified (principal); E83.42 Hypomagnesemia; J30.2 Other seasonal allergic rhinitis; J34.89 Other specified disorders of nose and nasal sinuses; Z87.820 Personal history of traumatic brain injury
CPT/HCPCS: 99284 ×2; 36415; 80053; 70450; 83735; 85025; 85610; 85730

== ENCOUNTER 2025-03-11 16:19 | Emergency (ER) | payer MEDICARE, SELFPAY ==
[2025-03-11 16:18] VITALS: BP 138/44; PULSE 83; RESP 14; TEMP 37.1; O2SAT 96
--- NOTE | 2025-03-11 16:30 | DI.CT_ITS ---
Exam(s) CT HEAD CERVICAL SPINE WO EXAM: CT HEAD CERVICAL SPINE WO CLINICAL HISTORY: face planted while walking up stairs, no LOC or SEGOVIA. TECHNIQUE: Imaging Protocol: Axial computed tomography images with coronal and sagittal reformatted images were created and reviewed COMPARISON: US THYROID ULTRASOUND from 01/14/2016 US US BREAST LIMITED LEFT from 10/26/[address] HEAD WO from 02/02/2025 FINDINGS: Head CT Ventricles and Extra axial spaces: Mildly prominent secondary to atrophy but stable. Hemorrhage: None. Cerebral parenchyma: No evidence of mass or acute infarct. Midline shift: None. Brainstem/Cerebellum: Normal. Calvarium: Normal. Visualized Paranasal sinuses/Mastoids: Clear. Soft tissues: Unremarkable. Cervical Spine CT BONES: Vertebral body heights are maintained. Alignment is normal. There is no evidence of acute fracture. Mild degenerative disc changes and facet degenerative changes are seen . SOFT TISSUES: No paraspinal hematoma. The airway appears intact. Thyroid nodules are noted, not significantly changed from 2016 ultrasound. No pneumothorax is seen at the lung apices. IMPRESSION: Head CT: No acute abnormality. C-spine CT: Mild degenerative changes, no acute abnormality. The preliminary [facility] report was reviewed. RADIATION DOSE DELIVERED: Total DLP DATA REPOSITORY: All CT scans at this facility are submitted to the National Radiology Data Registry (NRDR) Dose Index Registry (DIR) with the [employer] ([employer]). RADIATION OPTIMIZATION: All CT scans at this facility use at least one of these dose optimization techniques: automated exposure control; mA and/or kV adjustment per patient size (includes targeted exams where dose is matched to clinical indication); or iterative reconstruction.
--- NOTE | 2025-03-11 16:30 | DI.RAD_ITS ---
Exam(s) XR KNEE LT 4V AP,LAT,DANYEL,PAT EXAM: XR KNEE LT 4V AP,LAT,DANYEL,PAT CLINICAL HISTORY: fall onto knee, now with pain to medial knee. TECHNIQUE: 2D digital imaging was performed. Three views. COMPARISON: No exams were available for comparison FINDINGS: BONES: No acute fracture is present. No bony destructive lesion is seen. Enthesophyte at the quadriceps insertion. Chronic appearing undulation to the lateral tibial plateau, unchanged from prior. JOINTS: The knee is normally aligned. There is mild narrowing of the patellofemoral joint and mild periarticular spurring. A small joint effusion is seen. SOFT TISSUE: Normal. IMPRESSION: Mild degenerative changes of the patellofemoral joint. Small joint effusion. No acute fracture. The preliminary [facility] report was reviewed. DATA REPOSITORY: RADIATION DOSE DELIVERED:
--- NOTE | 2025-03-11 16:42 | W.ED.GENAD ---
Discharge Plan Disposition Patient Disposition: Home Condition: Good Discharge Details Clinical Impression: Left knee pain, Abrasion Primary Care Provider: Moy Pérez ED Provider: Tavia Garcia Home Meds and New Rx's Prescriptions: No Action melatonin 5 mg capsule 5 mg PO HS PRN EFFEXOR 37.5 MG tablet 37.5 mg PO DAILY acetaminophen 325 mg capsule 650 mg PO ONCE PRN cholecalciferol (vitamin D3) 75 mcg (3,000 unit) tablet 75 mcg PO DAILY ibuprofen 600 MG tablet 600 mg PO Q6H PRN PRNQty: 30 0RF nitroglycerin 0.4 mg Tablet, Sublingual 0.4 mg sublingual [id number] PRN amlodipine 5 mg tablet 5 mg PO DAILY tacrolimus 1 mg capsule 0.5 mg PO DAILY Cresemba 186 mg capsule 186 mg PO BID potassium chloride 20 mEq tablet,ER particles/crystals 40 meq PO PRN Patient Comments: TAKE TWO TABLETS BY MOUTH TWICE A DAY FOR 14 DAYS budesonide 3 mg capsule,delayed,extend.release 9 mg PO QAM Patient Comments: TAKE THREE CAPSULES BY MOUTH EVERY MORNING acyclovir 800 mg tablet 800 mg PO BID venlafaxine 25 mg tablet 25 mg PO TID sulfamethoxazole-trimethoprim 800-160 mg tablet 1 tab PO .COMPLEX Rx Instructions: 1 tab orally Thu//Thu; metoprolol tartrate 25 mg tablet 12.5 mg PO BID magnesium See Rx Instructions PO BID Rx Instructions: magnesium plus orally twice a day; tramadol 50 mg tablet 25 mg PO DAILY PRN famotidine 20 mg tablet 20 mg PO DAILY PRN Discharge Instructions Additional Instructions: Please call your primary care provider first thing Thursday to schedule follow-up appointment. A referral to physical therapy may be helpful. There is no fracture or dislocation on x-ray. Your head and neck CTs were also unremarkable, no acute abnormalities There was an incidental finding of a nodule in your left lobe of your thyroid. I recommend that you discuss this with your primary care provider for further outpatient management/ultrasound I encourage you to use an Olman bandage for comfort/support elevate your leg above heart level to help with pain/swelling. Apply ice for 15 to 20 minutes at a time every hour or 2 for discomfort. Return to emergency care if you develop any new or concerning symptoms and feel you need to be rechecked again immediate Referrals: Moy Pérez PA [Primary Care Provider, Medicine] HPI General Date/Time Provider Initiated Documentation: 03/11/25 16:29. HPI Narrative: Eloisa is a 74-year-old female presenting to the ED today via EMS for evaluation after a fall at the [employer]. Accompanied by . Fall at [employer] around 1000 hours while walking up a few steps and slipping on sand (no preceding sx), faceplanted on the ground with no LOC, resulting in abrasion to bridge of nose, bump on forehead, scrapes to bilat hands and discomfort to L knee. No loss of consciousness or resulting headache/dizziness/vision changes/n/v, weakness. Assisted to feet by and another individual. Managed to walk to car despite pain. No headaches, dizziness, vision changes, neck pain, back pain, shoulder or arm pain, oral or nasal bleeding, ear bleeding or drainage, nausea, vomiting, or abdominal pain. No other injuries reported such as neck pain, back pain, or other extremity pain. Regular bowel movements, no bowel movement since fall. Able to eat and drink post-incident. Limited mobility due to knee pain, worsened after climbing stairs. Cleaned wounds at home with saline, applied Neosporin. Pain managed with tramadol (ineffective) and oxycodone 5 mg (some relief). Given Tylenol by EMS. PMH significant for MDS, underwent stem cell transplant (blood counts currently normal). Pacemaker due to hypertrophic cardiomyopathy. No previous history of injury or surgery to L leg. She is not anticoagulated. UTD for tetanus (given earlier this year) Related Data Home Medications ?Medication ?Instructions ?Recorded ?Confirmed Effexor 37.5 mg PO DAILY 01/04/13 03/11/25 ibuprofen 600 mg tablet 600 mg PO Q6H PRN PRN #30 tabs 11/17/15 03/11/25 melatonin 5 mg capsule 5 mg PO HS PRN 02/11/19 03/11/25 nitroglycerin 0.4 mg sublingual 0.4 mg sublingual [id number] PRN 10/03/19 03/11/25 tablet acetaminophen 325 mg capsule 650 mg PO ONCE PRN 10/16/20 03/11/25 cholecalciferol (vitamin D3) 75 75 mcg PO DAILY 11/21/22 03/11/25 mcg (3,000 unit) tablet acyclovir 800 mg tablet 800 mg PO BID 12/23/24 03/11/25 amlodipine 5 mg tablet 5 mg PO DAILY 12/23/24 03/11/25 budesonide 3 mg 9 mg PO QAM 12/23/24 03/11/25 capsule,delayed,extended release isavuconazonium sulfate 186 mg 186 mg PO BID 12/23/24 03/11/25 capsule (Cresemba) metoprolol tartrate 25 mg tablet 12.5 mg PO BID 12/23/24 03/11/25 potassium chloride 20 mEq 40 meq PO PRN 12/23/24 03/11/25 tablet,extended release(part/cryst) sulfamethoxazole 800 1 tab PO .COMPLEX 12/23/24 03/11/25 mg-trimethoprim 160 mg tablet tacrolimus 1 mg capsule, 0.5 mg PO DAILY 12/23/24 03/11/25 immediate-release venlafaxine 25 mg tablet 25 mg PO TID 12/23/24 03/11/25 famotidine 20 mg tablet 20 mg PO DAILY PRN 02/02/25 03/11/25 magnesium See Rx Instructions PO BID 02/02/25 03/11/25 tramadol 50 mg tablet 25 mg PO DAILY PRN 02/02/25 03/11/25 Previous Rx's ?Medication ?Instructions ?Recorded ibuprofen 600 mg tablet 600 mg PO Q6H PRN PRN #30 tabs 11/17/15 Allergies Allergy/AdvReac Type Severity Reaction Status Date / Time cortisone (Cortisone) AdvReac Severe VOMITING, Verified 03/11/25 16:25 DIARRHEA General Stated Complaint: Orthopedic KYLE: 3 Exam Narrative Exam Narrative: General Appearance: No acute distress. Eloisa is alert and oriented, in no acute distress. Vital signs: Within normal limits. HEENT: Small bump on forehead, no pain with palpation. No bleeding or drainage from ears, no bleeding in mouth or from nose. Superficial abrasion on bridge of nose, no obvious deformity to nose or septal hematoma. No scalp bogginess/tenderness with palpation. No raccoon eyes or wharton's sign. Respiratory: Clear breath sounds bilaterally. Cardiovascular: Normal heart sounds, regular rate and rhythm. Gastrointestinal Abdomen is soft, nondistended, nontender to palpation. Back, Musculoskeletal: No c-spine, T-spine, L spine stepoff/point tenderness/deformity. Left knee: superficial abrasion noted, diffuse pain with flexion of knee, able to push down and lift leg.. Skin: Scrapes noted. Neurological:5/5 muscle strength to upper and lower extremities, sensation grossly intact. PERRL, EOMs intact. Psychiatric: Normal. Course Vital Signs Vital signs: Vital Signs Temperature 37.1 C 03/11/25 16:18 Pulse 83 03/11/25 16:18 Respiratory Rate 14 03/11/25 16:18 Blood Pressure 138/44 L 03/11/25 16:18 Pulse Oximetry 96 03/11/25 16:18 Temperature 37.1 C 03/11/25 16:18 Pulse 83 03/11/25 16:18 Respiratory Rate 14 03/11/25 16:18 Blood Pressure 138/44 L 03/11/25 16:18 Blood Pressure Position Sitting 03/11/25 16:18 Pulse Oximetry 96 03/11/25 16:18 Oxygen Delivery Method Room Air 03/11/25 16:18 Oxygen Flow Rate 0 03/11/25 16:18 Pain Level 6 03/11/25 16:18 Medical Decision Making Initial Assessment: 74-year-old female fell at [employer], face planted, multiple scrapes, worsening left knee pain. Knee exam limited due to discomfort with manipulation. No red flags concerning for intracranial hemorrhage, neurovascular compromise, or neck/back injury. Td UTD. Differential Diagnosis includes but is not limited to: Knee sprain, fracture, other soft tissue injury. Unable to clear pt based on NEXUS head or c-spine criteria based on age; imaging obtained. No red flags concerning for neurological deficits. I independently interpreted the following tests: Head CT reassuring, no acute intracranial hemorrhage. No obvious fractures noted on knee x-ray. This was confirmed by radiologist. While in the ED, Eloisa received ice for comfort. An Olman bandage was provided for compression/support. Patient was trialed using a walker, she does have a walker available at home and was able to weight-bear without difficulty with Olman bandage in place. Final Assessment: Abrasions, knee sprain. Patient was able to tolerate ambulating with walker with Olman bandage in place. Reviewed discharge instructions with patient, including symptomatic management, importance of follow-up with PCP for PT referral, and safety at home Disposition: Discharge: Home. Return if worsening pain, inability to walk, new symptoms. Follow-Up: Orthopedic referral for knee evaluation. Patient consented to the use of [facility] Imaging Data Radiologic Study: Radiologist's impression: PROCEDURE INFORMATION: Exam: XR Left Knee Exam date and time: 03/11/2025 5:36 PM Age: 74 years old Clinical indication: Other: Fall onto knee, now with pain to medial knee TECHNIQUE: Imaging protocol: Radiologic exam of the left knee. Views: 4 or more views. COMPARISON: No relevant prior studies available. FINDINGS: Bones/joints: No acute fracture. No dislocation. 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 Minor joint effusion. Soft tissues: Periarticular soft tissues are unremarkable. No elo hematoma. No soft tissue emphysema or foreign body. IMPRESSION: 1. Arthritic change. 2. No acute fracture or dislocation. 3. Minor joint effusion. 4. No soft tissue gas or foreign body Radiologic Study #2: Radiologist's impression: PROCEDURE INFORMATION: Exam: CT Head Without Contrast Exam date and time: 03/11/2025 5:19 PM Age: 74 years old Clinical indication: Injury or trauma; Fall; Blunt trauma (contusions or hematomas); Face-planted while walking up stairs, no loc or SEGOVIA TECHNIQUE: Imaging protocol: Computed tomography of the head without contrast. COMPARISON: CT HEAD WO 02/02/2025 10:24 AM FINDINGS: Brain: There is no acute intracranial hemorrhage, mass effect or midline shift. No large acute territorial infarct identified. Cerebral ventricles: The ventricles and sulci are prominent in size, which is at least in part due to global cerebral volume loss. Paranasal sinuses: Visualized sinuses are unremarkable. No fluid levels. Mastoid air cells: Visualized mastoid air cells are well aerated. Bones: No acute fracture. Soft tissues: Unremarkable. IMPRESSION: No acute intracranial hemorrhage, mass effect or midline shift. PROCEDURE INFORMATION: Exam: CT Cervical Spine Without Contrast Exam date and time: 03/11/2025 5:19 PM Clinical indication: Injury or trauma; Fall; Blunt trauma (contusions or hematomas); Face-planted while walking up stairs, no loc or SEGOVIA TECHNIQUE: Imaging protocol: Computed tomography of the cervical spine without contrast. COMPARISON: CT HEAD WO 02/02/2025 10:24 AM FINDINGS: Bones: No acute fracture. Normal alignment. No significant disc bulge or herniation. No severe spinal canal stenosis. No significant neural foraminal narrowing. Lungs: Calcified granulomas noted in the bilateral lung apices. Thyroid: Incidentally noted is a 1.5 cm hypodense nodule in the left thyroid lobe containing calcification. An 8 mm nodule noted in the right thyroid lobe. Soft tissues: Unremarkable. IMPRESSION: 1. No evidence of acute cervical spine injury. 2. 1.5 cm hypodense nodule in the left thyroid lobe. Correlate with nonemergent ultrasound findings. PFSH All Active Problems (Updated 03/11/25 @ 19:18 by Tavia Coppola) Abrasion (Acute) Left knee pain (Acute) Fracture of left superior pubic ramus (Acute) Fracture of left inferior pubic ramus (Acute) Nonspecific abnormal Papanicolaou smear of cervix (Acute) Pulmonary nodule (Acute) Impairment of speech discrimination (Acute) Sensorineural hearing loss, bilateral (Acute) Abnormal echocardiogram (Acute) Medical History Leukemia CAD (coronary artery disease) Hypertrophic obstructive cardiomyopathy History of breast cancer Decreased hearing Thyroid nodule Tubular adenoma of colon Vitamin D deficiency Pacemaker Left ventricular outflow tract obstruction History of non-ST elevation myocardial infarction (NSTEMI) GERD (gastroesophageal reflux disease) Vertigo Mitral regurgitation Nonsustained paroxysmal supraventricular tachycardia Cholelithiasis Surgical History (Updated 12/23/24 @ 02:50 by Jose De Jesus Myrick MD) S/P cholecystectomy History of ventricular septal myectomy History of coronary artery stent placement History of cardiac cath History of permanent cardiac pacemaker placement section X2 Breast, Mastectomy 1999 Family History Mother Stroke Hypertension Heart disease Father , [place] Heart disease Alcohol use disorder Social History Smoking/Tobacco Use Status: Never Smoking risk assessment performed?: Yes Alcohol Intake: current Alcohol Intake frequency: holidays/special occasions only Drug use: Never Substance use type: does not use Household members: spouse Housing: house Do you feel safe at home: Yes Do you feel safe in your relationship?: Yes
--- NOTE | 2025-03-11 18:28 | DI.VRAD_ITS ---
PROCEDURE INFORMATION: Exam: CT Head Without Contrast Exam date and time: 03/11/2025 5:19 PM Age: 74 years old Clinical indication: Injury or trauma; Fall; Blunt trauma (contusions or hematomas); Face-planted while walking up stairs, no loc or SEGOVIA TECHNIQUE: Imaging protocol: Computed tomography of the head without contrast. COMPARISON: CT HEAD WO 02/02/2025 10:24 AM FINDINGS: Brain: There is no acute intracranial hemorrhage, mass effect or midline shift. No large acute territorial infarct identified. Cerebral ventricles: The ventricles and sulci are prominent in size, which is at least in part due to global cerebral volume loss. Paranasal sinuses: Visualized sinuses are unremarkable. No fluid levels. Mastoid air cells: Visualized mastoid air cells are well aerated. Bones: No acute fracture. Soft tissues: Unremarkable. IMPRESSION: No acute intracranial hemorrhage, mass effect or midline shift. PROCEDURE INFORMATION: Exam: CT Cervical Spine Without Contrast Exam date and time: 03/11/2025 5:19 PM Age: 74 years old Clinical indication: Injury or trauma; Fall; Blunt trauma (contusions or hematomas); Face-planted while walking up stairs, no loc or SEGOVIA TECHNIQUE: Imaging protocol: Computed tomography of the cervical spine without contrast. COMPARISON: CT HEAD WO 02/02/2025 10:24 AM FINDINGS: Bones: No acute fracture. Normal alignment. No significant disc bulge or herniation. No severe spinal canal stenosis. No significant neural foraminal narrowing. Lungs: Calcified granulomas noted in the bilateral lung apices. Thyroid: Incidentally noted is a 1.5 cm hypodense nodule in the left thyroid lobe containing calcification. An 8 mm nodule noted in the right thyroid lobe. Soft tissues: Unremarkable. IMPRESSION: 1. No evidence of acute cervical spine injury. 2. 1.5 cm hypodense nodule in the left thyroid lobe. Correlate with nonemergent ultrasound findings. Dictated and Authenticated by: Anali King MD. Orderin Jie Squires MD
--- NOTE | 2025-03-11 19:04 | DI.VRAD_ITS ---
PROCEDURE INFORMATION: Exam: XR Left Knee Exam date and time: 03/11/2025 5:36 PM Age: 74 years old Clinical indication: Other: Fall onto knee, now with pain to medial knee TECHNIQUE: Imaging protocol: Radiologic exam of the left knee. Views: 4 or more views. COMPARISON: No relevant prior studies available. FINDINGS: Bones/joints: No acute fracture. No dislocation. 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 Minor joint effusion. Soft tissues: Periarticular soft tissues are unremarkable. No elo hematoma. No soft tissue emphysema or foreign body. IMPRESSION: 1. Arthritic change. 2. No acute fracture or dislocation. 3. Minor joint effusion. 4. No soft tissue gas or foreign body. Dictated and Authenticated by: Tevin Samuel MD. Orderin Jie Squires MD
== END 2025-03-11 19:25 | disposition home or self-care (01) ==
PROVIDERS: Emergency Provider Nurse Practitioner Family; PCP Physician Assistant Medical
DX: M25.562 Pain in left knee (principal); S00.31XA Abrasion of nose, initial encounter; E04.1 Nontoxic single thyroid nodule; I25.10 Atherosclerotic heart disease of native coronary artery without angina pectoris; I25.2 Old myocardial infarction; Z95.0 Presence of cardiac pacemaker; Z95.5 Presence of coronary angioplasty implant and graft; Z94.84 Stem cells transplant status; W01.198A Fall on same level from slipping, tripping and stumbling with subsequent striking against other object, initial encounter; Y93.01 Activity, walking, marching and hiking; Y92.512 Supermarket, store or market as the place of occurrence of the external cause
CPT/HCPCS: 99284; 70450; 72125; 73564

== ENCOUNTER 2025-03-24 00:52 | Outpatient (RCR) | payer MEDICARE, SELFPAY ==
[2025-03-24] MEDS: Normal Saline Flush 10 ML SYR IVP (11:10)
[2025-03-24 11:33] LABS: Abs Immature Grans 0.02 10^3/uL (0.0-0.06); HCT 31.7 % (36.0-46.0); HGB 11.0 g/dL (11.2-15.7); Immature Grans % 0.4 %; MCH 38.2 pg (27.0-33.0); MCHC 34.7 % (32.0-36.0); MCV 110 fL (80-95); MPV 9.2 fL (8.0-11.0); Platelet Count 138 10^3/uL (130-400); RBC 2.88 10^6/uL (3.93-5.22); RDW 15.2 % (11.7-14.6); RDW-SD 59.9 fL; WBC 4.76 10^3/uL (4.4-10.8)
[2025-03-24 11:53] LABS: ALT 140 U/L (14-59); AST 42 U/L (15-37); Albumin 3.7 g/dL (3.4-5.0); Alkaline Phosphatase 191 U/L (46-116); Anion Gap 9.1 mmol/L (3-11); BUN 27 mg/dL (7-18); Bilirubin, Total 0.3 mg/dL (0.2-1.0); CO2 25.9 mmol/L (21.0-32.0); Calcium 9.1 mg/dL (8.5-10.1); Chloride 105 mmol/L (98-107); Estimated GFR 76.79 (mL/min/1.73m2); Glucose 164 mg/dL (74-106); Magnesium 2.0 mg/dL (1.8-2.4); Potassium 4.0 mmol/L (3.5-5.1); Sodium 140 mmol/L (136-145); Total Protein 6.9 g/dL (6.4-8.2)
== END 2025-04-13 23:59 | disposition home or self-care (01) ==
LOC: INF 00:52
PROVIDERS: PCP Physician Assistant Medical; Visit Provider Internal Medicine Hematology & Oncology
DX: D46.9 Myelodysplastic syndrome, unspecified (principal); Z94.81 Bone marrow transplant status
CPT/HCPCS: 36591; 80053; 96523; 83735; 85025